=== PATIENT | female | born 2000 | race Hispanic/Latino ===

== ENCOUNTER 2022-06-10 14:22 | Emergency (ER) | payer OTHER ==
[2022-06-10 16:29] LABS: Urine Blood Negative (Negative); Urine Glucose Negative (Negative); Urine Protein Negative (Negative); Urine pH 6.5 (5.0-7.0)
[2022-06-10] MEDS ORDERED: KETOROLAC 30 MG/ML INJ ONE (17:04)
--- NOTE | 2022-06-10 17:11 | RAD REPORT ---
EXAM DESCRIPTION: CT - Stone Protocol - 06/10/2022 4:37 pm CLINICAL HISTORY: Left flank pain, lower back pain COMPARISON: None. TECHNIQUE: CT imaging of the abdomen and pelvis was performed without IV contrast. . Multiplanar ref ormats were generated and reviewed. All CT scans are performed using dose optimization technique as appropriate and may include automated exposure control or mA/KV adjustment according to patient size. FINDINGS: No suspicious findings in the lung bases. The liver, spleen and pancreas show no suspicious findings. Gallbladder and biliary tree are also wit hout suspicious finding. No hydronephrosis or suspicious renal mass within limits of noncontrast CT. No evidence of hydronephr osis or radiopaque calculi. . No significant adrenal finding. No dilated bowel loops or bowel wall thickening. No free air, free fluid or inflammatory stranding. N o hernia, mass or bulky lymphadenopathy. The urinary bladder is without significant finding. Uterus is retroverted with IUD in satisfactory position. Dominant right adnexal cyst or follicle, sanket suring 3 centimeter. No suspicious bony findings. IMPRESSION: No evidence of hydroureteronephrosis or radiopaque calculi. No other acute intra-abdomin al process.
[2022-06-10 17:22] LABS: Absolute Lymphocytes (CBC) 1.9 K/uL (0.7-4.9); Hematocrit 38.3 % (36.0-45.0); Lymphocytes % 16.4 % (15.3-44.8); MCV 87.9 fL (80-100); MPV 7.8 fL (7.6-11.3); RBC Red Blood Cell Count 4.36 M/uL (3.86-4.86)
[2022-06-10 17:37] LABS: Albumin 3.6 g/dL (3.4-5.0); Bilirubin Total 0.4 mg/dL (0.2-1.0); Potassium 3.8 mmol/L (3.5-5.1); Protein, Total 8.3 g/dL (6.4-8.2)
--- NOTE | 2022-06-10 18:56 | RAD REPORT ---
EXAM DESCRIPTION: CT - Chest For Pe Angio - 06/10/2022 6:29 pm CLINICAL HISTORY: Left-sided Chest pain COMPARISON: CT stone protocol same-day TECHNIQUE: Dynamically enhanced axial 3 mm thick images of the chest were obtained during administra tion of 74 mL Isovue 370 IV contrast. Coronal and oblique reconstruction images were generated and re viewed. Exam utilizes a protocol for optimal evaluation of pulmonary arterial tree. All CT scans are performed using dose optimization technique as appropriate and may include automated exposure control or mA/KV adjustment according to patient size. FINDINGS: Pulmonary arteries are patent. No evidence of emboli or other suspicious finding. Main pul monary artery is normal in caliber. No acute or significant aorta findings. Mild burden of scattered central predominant alveolar ground-glass opacities in the left lower lobe, with few similar opacities in the right middle and lower lobes. Subsegmental opacification in the med ial right middle lobe. No pleural thickening or pleural effusion. No pneumothorax. No abnormal mediastinal or hilar masses or lymphadenopathy seen. No chest wall mass or abnormal axill iary lymphadenopathy. IMPRESSION: No evidence of acute pulmonary embolus. Mild burden of air bilateral lower lobe and right middle lobe airspace opacities as above, suggestive of an infectious or inflammatory as pneumonia.
--- NOTE | 2022-06-10 19:26 | ER ---
Nurse's Notes [facility] Name: Ashley Estevez Age: 22 yrs Sex: Female : 2000 Arrival Date: 06/10/2022 Time: 14:29 Bed 17 Private MD: Diagnosis: Community-acquired pneumonia Presentation: 06/10 14:50 Chief complaint: Patient states: she is having lower left sided back pain, that hurts ap3 every time she moves. patient reports normal urine habits. Coronavirus screen: At this time, the client does not indicate any symptoms associated with coronavirus-19. Ebola Screen: No symptoms or risks identified at this time. Initial Sepsis Screen: Does the patient meet any 2 criteria? No. Patient's initial sepsis screen is negative. Does the patient have a suspected source of infection? No. Patient's initial sepsis screen is negative. Risk Assessment: Do you want to hurt yourself or someone else? Patient reports no desire to harm self or others. Onset of symptoms was June 03, 2022. 14:50 Method Of Arrival: Ambulatory ap3 14:50 Acuity: IAN 3 ap3 Triage Assessment: 14:53 General: Appears in no apparent distress. Behavior is calm, cooperative, appropriate ap3 for age. Pain: Complains of pain in left low back and left mid back Pain currently is 8 out of 10 on a pain scale. Pain began gradually. Neuro: Level of Consciousness is awake, alert, obeys commands, Oriented to person, place, time, situation. Cardiovascular: Patient's skin is warm and dry. Respiratory: Airway is patent Respiratory effort is even, unlabored, Respiratory pattern is regular, symmetrical. :. Musculoskeletal: Range of motion: intact in all extremities. 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 Flu vaccine is up to date. - Social history:: Smoking status: Reported history of juuling and/or vaping. Patient uses street drugs, marijuana. Screenin:54 [facility] ED Fall Risk Assessment (Adult) History of falling in the last 3 months, ap3 including since admission No falls in past 3 months (0 pts). Abuse screen: Denies threats or abuse. Denies injuries from another. Nutritional screening: No deficits noted. Tuberculosis screening: No symptoms or risk factors identified. Assessment: 16:23 General: Appears in no apparent distress. uncomfortable, Behavior is calm, cooperative, kr3 appropriate for age. Neuro: Level of Consciousness is awake, alert, obeys commands, Oriented to person, place, time, situation. Cardiovascular: Patient's skin is warm and dry. Respiratory: Airway is patent Respiratory effort is even, unlabored. 16:30 GI: Abdomen is flat, non-distended. : No signs and/or symptoms were reported kr3 regarding the genitourinary system. EENT: No signs and/or symptoms were reported regarding the EENT system. Derm: No signs and/or symptoms reported regarding the dermatologic system. Musculoskeletal: No signs and/or symptoms reported regarding the musculoskeletal system. 17:30 Reassessment: Patient and/or family updated on plan of care and expected duration. Pain kr3 level reassessed. Patient is alert, oriented x 3, equal unlabored respirations, skin warm/dry/pink. 19:44 Reassessment: Patient appears in no apparent distress at this time. Patient and/or aa9 family updated on plan of care and expected duration. Pain level reassessed. Patient is alert/active/playful, equal unlabored respirations, skin warm/dry/pink. Patient denies pain at this time. Patient states symptoms have improved. Vital Signs: 14:50 BP 105 / 87; Pulse 90; Resp 18; Temp 98.7; Pulse Ox 100% ; Weight 39.92 kg; Height 5 ap3 ft. (152.40 cm); Pain 8/10; 14:50 Body Mass Index 17.19 (39.92 kg, 152.40 cm) ap3 ED Course: 14:29 Patient arrived in ED. am2 14:36 [facility] Cool [facility] 14:36 Marcio Zee MD is Attending Physician. [facility] 14:52 Triage completed. ap3 14:55 Arm band placed on left wrist. ap3 14:56 Attending Physician role handed off by Marcio Zee MD brent 14:56 Omid Huizar MD is Attending Physician. brent 16:23 Nereyda Cha, RN is Primary Nurse. kr3 16:58 Urine --Ancillary (enter results) Sent. kr3 17:11 Inserted saline lock: 22 gauge in right antecubital area, using aseptic technique. kr3 Blood collected. 19:44 Patient has correct armband on for positive identification. Bed in low position. aa9 19:44 No provider procedures requiring assistance completed. IV discontinued, intact, aa9 bleeding controlled, No redness/swelling at site. Pressure dressing applied. Administered Medications: 17:11 Drug: Ketorolac 15 mg Route: IVP; Site: right forearm; kr3 19:43 Follow up: Response: No adverse reaction aa9 19:43 Drug: Rocephin (cefTRIAXone) 1 grams Route: IV; Rate: calculated rate; Site: right aa9 forearm; 19:43 Follow up: Response: No adverse reaction; IV Status: Completed infusion; IV Intake: 11utih2 19:43 Drug: AZITHromycin 500 mg Route: PO; aa9 19:43 Follow up: Response: No adverse reaction aa9 Medication: 14:55 VIS not applicable for this client. ap3 Intake: 19:43 IV: 10ml; Total: 10ml. aa9 Outcome: 19:25 Discharge ordered by . [facility] 19:44 Discharged to home ambulatory. aa9 19:44 Condition: stable 19:44 Condition: stable 19:44 Discharge instructions given to patient, Instructed on discharge instructions, follow up and referral plans. medication usage, Demonstrated understanding of instructions, follow-up care, medications, Prescriptions given X 2. 19:44 Patient left the ED. aa9 Signatures: Omid Huizar MD MD cha Mickail, Joel, PA PA jmm Moreno, Amanda am2 Chary Martinez RN RN ap3 Maty Yi RN RN aa9 Nereyda Cha, KYLE RN kr3 Corrections: (The following items were deleted from the chart) 14:53 14:52 PMHx: None; ap3 ap3
--- NOTE | 2022-06-10 19:26 | EDPHYS ---
Physician Documentation [facility] Name: Ashley Estevez Age: 22 yrs Sex: Female : 2000 Arrival Date: 06/10/2022 Time: 14:29 Bed 17 Private MD: JIM Physician Omid Huizar HPI: 06/10 14:56 This 22 yrs old Female presents to ER via Ambulatory with complaints of Cough, jmm Back Pain - left side. 14:56 The patient or guardian reports cough. Onset: The symptoms/episode began/occurred jmm gradually. Modifying factors: The symptoms are alleviated by nothing, the symptoms are aggravated by nothing. Associated signs and symptoms: Pertinent positives: Cough. The patient has not experienced similar symptoms in the past. 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 Flu vaccine is up to date. - Social history:: Smoking status: Reported history of juuling and/or vaping. Patient uses street drugs, marijuana. ROS: 14:56 Constitutional: Positive for body aches. jmm 14:56 Respiratory: Positive for cough. 14:56 Back: Positive for flank pain, on the left. 14:56 All other systems are negative. Exam: 14:56 Constitutional: This is a well developed, well nourished patient who is awake, alert, jmm and in no acute distress. Head/Face: atraumatic. Eyes: EOMI, no conjunctival erythema appreciated ENT: Moist Mucus Membranes Neck: Trachea midline, Supple Chest/axilla: Normal chest wall appearance and motion. Cardiovascular: Regular rate and rhythm. No edema appreciated Respiratory: Normal respirations, no respiratory distress appreciated Abdomen/GI: Non distended 14:56 Skin: General appearance color normal MS/ Extremity: Moves all extremities, no obvious deformities appreciated, no edema noted to the lower extremities Neuro: Awake and alert Psych: Behavior is normal, Mood is normal, Patient is cooperative and pleasant 14:56 Back: CVA tenderness, that is mild, that is moderate. Vital Signs: 14:50 BP 105 / 87; Pulse 90; Resp 18; Temp 98.7; Pulse Ox 100% ; Weight 39.92 kg; Height 5 ap3 ft. (152.40 cm); Pain 8/10; 14:50 Body Mass Index 17.19 (39.92 kg, 152.40 cm) ap3 MDM: 14:56 Patient medically screened. brent 19:24 Data reviewed: vital signs, nurses notes. Independent interpretation of the following [facility] test(s) in the Emergency Department. Discussion of test interpretation with radiology: I had a discussion with radiology regarding a test interpretation. Had some concerns for pneumonia on the CT stone protocol.. Counseling: I had a detailed discussion with the patient and/or guardian regarding: the historical points, exam findings, and any diagnostic results supporting the discharge/admit diagnosis, lab results, radiology results, the need for outpatient follow up, to return to the emergency department if symptoms worsen or persist or if there are any questions or concerns that arise at home. 06/10 14:59 Order name: CBC with Diff [facility] 06/10 14:59 Order name: CMP [facility] 06/10 14:59 Order name: Lipase [facility] 06/10 16:29 Order name: Urine Dipstick-Ancillary; Complete Time: 16:30 [facility] 06/10 16:43 Order name: Urine --Ancillary (enter results) [facility] 06/10 16:58 Order name: Urine --Ancillary; Complete Time: 17:01 [facility] 06/10 14:59 Order name: CT Stone Protocol [facility] 06/10 17:11 Order name: CT; Complete Time: 17:26 [facility] 06/10 17:17 Order name: CT Chest For PE Angio [facility] 06/10 17:24 Order name: CBC with Automated Diff; Complete Time: 17:26 [facility] 06/10 17:38 Order name: Comprehensive Metabolic Panel; Complete Time: 17:47 [facility] 06/10 17:38 Order name: Lipase; Complete Time: 17:47 [facility] 06/10 18:57 Order name: CT; Complete Time: 19:00 [facility] 06/10 14:59 Order name: IV Saline Lock; Complete Time: 17:11 [facility] 06/10 14:59 Order name: Labs collected and sent; Complete Time: 17:11 [facility] 06/10 14:59 Order name: Urine Dipstick-Ancillary (obtain specimen); Complete Time: 16:36 [facility] 06/10 14:59 Order name: Urine Test (obtain specimen); Complete Time: 16:36 [facility] Administered Medications: 17:11 Drug: Ketorolac 15 mg Route: IVP; Site: right forearm; kr3 19:43 Follow up: Response: No adverse reaction aa9 19:43 Drug: Rocephin (cefTRIAXone) 1 grams Route: IV; Rate: calculated rate; Site: right aa9 forearm; 19:43 Follow up: Response: No adverse reaction; IV Status: Completed infusion; IV Intake: [id number] 19:43 Drug: AZITHromycin 500 mg Route: PO; aa9 19:43 Follow up: Response: No adverse reaction aa9 Disposition Summary: 06/10/22 19:25 Discharge Ordered Location: Home [facility] Condition: Stable [facility] Diagnosis - Community-acquired pneumonia [facility] Followup: [facility] - With: Private Physician - When: 2 - 3 days - Reason: Recheck today's complaints, Continuance of care, Re-evaluation by your physician Discharge Instructions: - Discharge Summary Sheet [facility] - Community-Acquired Pneumonia, Adult [facility] Forms: - Medication Reconciliation Form [facility] - Thank You Letter [facility] - Antibiotic Education [facility] - Prescription Opioid Use [facility] Prescriptions: - cefdinir 300 mg Oral capsule - take 1 capsule by ORAL route every 12 hours for 10 days; 20 capsule; Refills: jm 0, Product Selection Permitted - Zithromax Z-Dwain 250 mg Oral Tablet - take 1 tablet by ORAL route as directed for 5 days Day 1 - take two (2) tablets [facility] one time. Day 2, 3, 4 , 5 take one (1) tablet once daily.; 6 tablet; Refills: 0, Product Selection Permitted Addendum: 06/11/2022 19:53 Co-signature as Attending Physician, Marcio Zee MD I reviewed the patient's care r n provided by the Advanced Practice Provider and agree with the diagnosis and treatment plan. Signatures: Dispatcher [employer] Omid Chaney MD MD cha Mickail, Joel, PA PA [facility] Marcio Zee MD MD rn Prokisch, Amanda RN RN ap3 Maty Yi RN RN aa9 Nereyda Cha RN RN kr3 Corrections: (The following items were deleted from the chart) 06/10 14:53 14:52 PMHx: None; ap3 ap3
[2022-06-10] MEDS ORDERED: CEFTRIAXONE 1000 MG/VIAL ONE (19:37)
[2022-06-10] MEDS ORDERED: AZITHROMYCIN 250 MG TAB ONE (19:37)
[2022-06-10 20:22] VITALS: BP 105/87; TEMP 98.7; O2SAT 100
== END 2022-06-10 19:44 | disposition home or self-care (01) ==
LOC: ER 14:22
DX: J18.9 Pneumonia, unspecified organism (principal)
CPT/HCPCS: 85025; 36415; 81025; 81003; 83690; 80053; 76377; 71275; 74176; Q9967

== ENCOUNTER 2022-06-12 11:33 | Emergency (ER) | payer OTHER ==
--- OUTSIDE RECORDS SUMMARY | 2022-06-12 11:39 | XMS REPORT | Continuity of Care Document ---
:2000 Author Organization [facility] t Address [address] [place] [address] Care Team Providers Name Role Phone JOHNY MIN Attending Clinician Unavailable Elmer Zapien Attending Clinician Unavailable Nilton Gastelum Attending Clinician Unavailable Taisha Edouard Attending Clinician Unavailable Julissa Earl Attending Clinician Unavailable Elmer Zapien Admitting Clinician Unavailable Payers Payer Name Policy Type Policy Number Effective Date Expiration Date S ource Problems This patient has no known problems. Allergies, Adverse Reactions, Alerts Allergy Allergy Status Severity Reaction(s) Onset Inactive Treating Comm ents Source Name Type Date Date Clinician No Known DA Active U [facility] Clear s 00:00: [place] 00 [facility] No Known DA Active U [facility] 11-11 Clear s 00:00: [place] 00 [facility] No Known DA Active U 2021-0 [facility] 7-07 Clear s 00:00: [place] [facility] No Known DA Active U 2020-0 [facility] 7-07 Clear s 00:00: [place] [facility] No Known DA Active U 2019- [facility] 2-07 Clear s 00:00: [place] [facility] No Known DA Active U 2019- [facility] All[facility]ie 2-07 Clear s 00:00: [place] [facility] No Known DA Active U 2015- [facility] 2-04 Clear s 00:00: [place] [facility] No Known DA Active U 2015-0 [facility] All[facility]ie 2-04 Clear s 00:00: [place] [facility] Medications This patient has no known medications. Procedures Procedure Date / Time Performed Performing Clinician [facility] bo [id number] 2020-11-12 00:00:00 MAXBA [facility] [id number] 2020-11-12 00:00:00 MAXBA [facility] [id number] 2020-11-12 00:00:00 MAXBA [facility] [id number] 2020-11-12 00:00:00 MAXBA [facility] [id number] 2020-11-11 00:00:00 MAXBA [facility] [id number] 2020-11-11 00:00:00 MAXBA [facility] [id number] 2020-11-11 00:00:00 MAXBA [facility] [id number] 2020-11-11 00:00:00 MAXBA [facility] Encounters Start End Encounter Admission Attending Care Care Encounter Source Date/Time Date/Time Type Type Clinicians Facility Department ID 2020-04-23 Inpatient [facility] NAKUL [id number] [facility] 17:49:00 [facility] 2020-03-26 Inpatient [facility] NAKUL [id number] [facility] 10:03:00 [facility] 2021-10-25 2021-10-25 Emergency E INA MINTW MHTW [id number] MHTW 15:39:00 20:30:00 JOHNY 2020-11-11 2020-11-14 Inpatient EM Maximos, HC[facility]L OBPP [id number] [facility] 17:33:00 15:33:00 Elmer 88 [facility] 2020-11-11 2020-11-14 Inpatient EM Maximos, [facility] OBPP [id number] [facility] 17:33:00 15:33:00 Elmer [id number] [facility] 2020-11-10 2020-11-10 Emergency EM Nirav, [facility] NAKUL [id number] [facility] 11:53:00 13:57:00 Nilton [id number] [facility] 2020-11-06 2020-11-06 Emergency EM Javan, HC[facility]L DANYELL [id number] [facility] 18:17:00 19:55:00 Taisha [id number] [facility] 2020-10-24 2020-10-24 Emergency EM Rajat, [facility] DANYELL [id number] [facility] 21:18:00 23:21:00 Julissa [id number] [facility] 2020-09-27 2020-09-28 Inpatient EM Maximos, [facility] OBANTE [id number] [facility] 14:49:00 17:28:00 Elmer [id number] [facility] Results Test Description Test Time Test Comments Results Result Comments Source SURGICAL PATH SPECIMENS 2020-11-14 14:27:00 Test Item Value Reference Range Interpretation Comme nts SURGICAL RUN DATE: HARVEY 11/14/20 Moustapha LOPEZ GE 1 RUN TIME: 1426 Specimen Inquiry RUN USER: INTERFACE SPECIMENS PATIENT: BENDERtest code SHALOM SCHROEDER # : [id number] LOC: LAW U #: [id number] AGE/SX: 20/F [place] [facility] [place]: = S) 11/11/20REG DR: Yaron Zapien MD : 98 BED: 1 DIS: STATUS: ADM IN TLOC: SPEC #: [id number] RECD: 11/13/20-0 941 STATUS: SMILEY RE #: [id number] DOROTA: 11/12/20- SUBM DR: Elmer Zapien MD ENTERED: 11/13/20 SP TYPE: SURG SPEC OTHR DR: Self Referred Julissa Earl DOORDERED: GM LEVEL 5 CODES: [id number] - PLACENTA, NOS COPIES TO: Self Referred Julissa Earl DO [address] [facility], [address] [place] [address] Elmer Zapien MD [address] [facility], [address] [place] [address] PROCEDURES: GM LEVEL 5 (11/13/20) TISSUES: PLACENTA, NOS FINAL DIAGNOSIS Placenta: Third trimester placenta wit h acute chorionitis, deciduitis; 385 g (expected mean 519 g); trivascular umbilical cord with mild acu te vasculitis. GROSS AND MICROSCOPIC GROSS EXAMINATION: Received is a placenta measuring 17 x 13.9 x 1.8 cm with attached umbilical cord measuring 46 cm in length, 1 cm in diameter, arising 6 cm from the margin. Sections are submitted as A-D. The maternal surface appears intact. The placental disc w eighs 385 g. Microscopic examination: The trivascular umbilical cord contains mild acute inflamma tory cells within vessel mosqueda. The membranes have acute inflammatory cells within the chorion. The vill i are predominantly small, with decreased cellularity and prominent vasculature. The decidua brian ws acute and chronic inflammation. CONTINUED ON NEXT PAGE RUN DATE: 11/14/20 [facility] P AGE 1 RUN TIME: 142 Specimen Inquiry RUN USER: INTERFACE SPEC #: [id number] PATIENT: SHALOM PARKINSON Bo #[id number] (Continued) Signed SIGNATURE ON FILE Florence Eli MD 11/14/20 1427 END OF REPORT CBC W/AUTO [id number] 07:37:00 Test Item Value Reference Range Interpretation Comments WHITE BLOOD CELL (test code = 13.5 x10 3/uL 4.5-11.0 H WBC) RED BLOOD CELL (test code = 3.08 x10 6/uL 3.54-5.02 L RBC) HEMOGLOBIN (test code = HGB) 9.5 g/dL 11.0-15.0 L HEMATOCRIT (test code = HCT) 29.3 % 33.0-45.0 L MEAN CELL VOLUME (test code = 95.1 fL 81.0-99.0 MCV) MEAN CELL HGB (test code = MCH) 30.8 pg 27.0-33.0 N MEAN CELL HGB CONCETRATION 32.4 g/dL 33.0-37.0 L (test code = MCHC) RED CELL DISTRIBUTION WIDTH CV 13.5 % 11.5-14.5 N (test code = RDW) RED CELL DISTRIBUTION WIDTH SD 46.9 fL 37.0-54.0 N (test code = RDW-SD) PLATELET COUNT (test code = 192 x10 3/uL 150-400 N PLT) MEAN PLATELET VOLUME (test code 11.0 fL 7.0-9.0 H = MPV) NEUTROPHIL % (test code = NT%) 69.4 % 56.0-77.0 N IMMATURE GRANULOCYTE % (test 0.7 % 0.0-2.0 N code = IG%) LYMPHOCYTE % (test code = LY%) 21.5 % 14.0-32.0 N MONOCYTE % (test code = MO%) 7.7 % 4.8-9.0 N EOSINOPHIL % (test code = EO%) 0.4 % 0.3-3.7 N BASOPHIL % (test code = BA%) 0.3 % 0.0-2.0 N NUCLEATED RBC % (test code = 0.0 % 0-0 N NRBC%) NEUTROPHIL # (test code = NT#) 9.37 x10 3/uL 2.0-7.6 H IMMATURE GRANULOCYTE # (test 0.10 x10 3/uL 0.00-0.03 H code = IG#) LYMPHOCYTE # (test code = LY#) 2.90 x10 3/uL 1.0-3.8 N MONOCYTE # (test code = MO#) 1.04 x10 3/uL 0.1-0.8 H EOSINOPHIL # (test code = EO#) 0.06 x10 3/uL 0.0-0.2 N BASOPHIL # (test code = BA#) 0.04 x10 3/uL 0.0-0.2 N NUCLEATED RBC # (test code = 0.00 x10 3/uL 0.0-0.1 N NRBC#) MANUAL DIFF REQUIRED (test code NO = MDIFF) RAPID PLASMA [id number] 10:53:00 Test Item Value Reference Range Interpretation Comments RAPID PLASMA REAGIN (test code = NONREACTIVE NONREACTIVE RPR) AG HEPATITIS B [id number] 10:53:00 Test Item Value Reference Range Interpretation Comments AG HEPATITIS B SURFACE NON REACTIVE INDEX NonReactive (test code = HBSAG) AB HIV 1 10:53:00 Test Item Value Reference Range Interpretation Comments AB HIV 1 2 (test code = NONREACTIVE INDEX NONREACTIVE [id number]) RAPID PLASMA [id number] 19:19:00 Test Item Value Reference Range Interpretation Comments RAPID PLASMA REAGIN (test code = RPR) NONREACTIVE AG HEPATITIS B [id number] 19:19:00 Test Item Value Reference Range Interpretation Comments AG HEPATITIS B SURFACE NON REACTIVE INDEX NonReactive (test code = HBSAG) AB HIV 1 19:19:00 Test Item Value Reference Range Interpretation Comments AB HIV 1 2 (test code = NONREACTIVE INDEX NONREACTIVE [id number]) COVID 19 Asymptomatic IH [id number] 18:38:00 Test Item Value Reference Range Interpretation Comments COVID 19 Asymptomatic Negative Negative A nega tive result is IH AG (test code = presumpti ve and should COVNONPUIAG) be confirmedwit h an FDA authorized mole cular assay, if lisbeth bassett forpatient gemma sharif.A positive result does not rule out co-inf ections withother patho gens.This test detects sharad th viable (live) and non-viable,SARS -CoV, and SARS-CoV-2. Min t performance dep ends on theamount of vi lucía (antigen) in th e sample.This min t has not been FDA cleare d or approved; the t est hasbeen authori zed by FDA under an Em ergency Use Authorizati on(EUA) for use by labo ratories certified under the CLIA thatmeet the requirements to perform moderate, high or waivedcomplexit y tests. COMMENTS: If not done this admissionCOMPREHENSIVE METABOLIC [id number] 16:38:00 Test Item Value Reference Range Interpretation Comments SODIUM (test code = NA) 136 mEq/L 134-147 N POTASSIUM (test code = 4.0 mEq/L 3.4-5.0 N K) CHLORIDE (test code = 107 mEq/L 100-108 N CL) CARBON DIOXIDE (test 23 mEq/l 21-33 N code = CO2) ANION GAP (test code = 10 0-20 N GAP) GLUCOSE (test code = 83 mg/dL 70-110 N GLU) BLOOD UREA NITROGEN 6 mg/dL 7-18 L (test code = BUN) GLOMERULAR FILTRATION 125.0 110-120 H Units of measure = RATE (test code = GFR) ml/mi n/1.73 m2 CREATININE (test code = 0.6 mg/dL 0.6-1.3 N CREAT) TOTAL PROTEIN (test code g/dL 6.4-8.2 = PROT) ALBUMIN (test code = g/dL 3.4-5.0 ALB) CALCIUM (test code = CA) 9.0 mg/dL 8.0-10.5 N BILIRUBIN TOTAL (test mg/dL 0.0-1.0 code = BILT) SGOT/AST (test code = IUnit/L 15-37 AST) SGPT/ALT (test code = IUnit/L 30-65 ALT) ALKALINE PHOSPHATASE IUnit/L 20-125 TOTAL (test code = ALKP) COMPREHENSIVE METABOLIC [id number] 16:38:00 Test Item Value Reference Range Interpretation Comments SODIUM (test code = NA) 136 mEq/L 134-147 N POTASSIUM (test code = 4.0 mEq/L 3.4-5.0 N K) CHLORIDE (test code = 107 mEq/L 100-108 N CL) CARBON DIOXIDE (test 23 mEq/l 21-33 N code = CO2) ANION GAP (test code = 10 0-20 N GAP) GLUCOSE (test code = 83 mg/dL 70-110 N GLU) BLOOD UREA NITROGEN 6 mg/dL 7-18 L (test code = BUN) GLOMERULAR FILTRATION 125.0 110-120 H Units of measure = RATE (test code = GFR) ml/mi n/1.73 m2 CREATININE (test code = 0.6 mg/dL 0.6-1.3 N CREAT) TOTAL PROTEIN (test 6.8 g/dL 6.4-8.2 N code = PROT) ALBUMIN (test code = 3.00 g/dL 3.4-5.0 L ALB) CALCIUM (test code = 9.0 mg/dL 8.0-10.5 N CA) BILIRUBIN TOTAL (test 0.40 mg/dL 0.0-1.0 N code = BILT) SGOT/AST (test code = 23 IUnit/L 15-37 N AST) SGPT/ALT (test code = 9 IUnit/L 30-65 L ALT) ALKALINE PHOSPHATASE 221 IUnit/L 20-125 H TOTAL (test code = ALKP) CBC W/AUTO [id number] 14:56:00 Test Item Value Reference Range Interpretation Comments WHITE BLOOD CELL (test code = 11.2 x10 3/uL 4.5-11.0 H WBC) RED BLOOD CELL (test code = 3.52 x10 6/uL 3.54-5.02 L RBC) HEMOGLOBIN (test code = HGB) 10.8 g/dL 11.0-15.0 L HEMATOCRIT (test code = HCT) 31.9 % 33.0-45.0 L MEAN CELL VOLUME (test code = 90.6 fL 81.0-99.0 N MCV) MEAN CELL HGB (test code = MCH) 30.7 pg 27.0-33.0 N MEAN CELL HGB CONCETRATION 33.9 g/dL 33.0-37.0 N (test code = MCHC) RED CELL DISTRIBUTION WIDTH CV 13.4 % 11.5-14.5 N (test code = RDW) RED CELL DISTRIBUTION WIDTH SD 43.7 fL 37.0-54.0 N (test code = RDW-SD) PLATELET COUNT (test code = 240 x10 3/uL 150-400 N PLT) MEAN PLATELET VOLUME (test code 10.3 fL 7.0-9.0 H = MPV) NEUTROPHIL % (test code = NT%) 77.1 % 56.0-77.0 H IMMATURE GRANULOCYTE % (test 1.3 % 0.0-2.0 N code = IG%) LYMPHOCYTE % (test code = LY%) 12.6 % 14.0-32.0 L MONOCYTE % (test code = MO%) 8.5 % 4.8-9.0 N EOSINOPHIL % (test code = EO%) 0.3 % 0.3-3.7 N BASOPHIL % (test code = BA%) 0.2 % 0.0-2.0 N NUCLEATED RBC % (test code = 0.0 % 0-0 N NRBC%) NEUTROPHIL # (test code = NT#) 8.60 x10 3/uL 2.0-7.6 H IMMATURE GRANULOCYTE # (test 0.15 x10 3/uL 0.00-0.03 H code = IG#) LYMPHOCYTE # (test code = LY#) 1.40 x10 3/uL 1.0-3.8 N MONOCYTE # (test code = MO#) 0.95 x10 3/uL 0.1-0.8 H EOSINOPHIL # (test code = EO#) 0.03 x10 3/uL 0.0-0.2 N BASOPHIL # (test code = BA#) 0.02 x10 3/uL 0.0-0.2 N NUCLEATED RBC # (test code = 0.00 x10 3/uL 0.0-0.1 N NRBC#) MANUAL DIFF REQUIRED (test code NO = MDIFF) CBC W/AUTO [id number] 14:55:00 Test Item Value Reference Range Interpretation Comments WHITE BLOOD CELL (test code = x10 3/uL 4.5-11.0 WBC) RED BLOOD CELL (test code = RBC) x10 6/uL 3.54-5.02 HEMOGLOBIN (test code = HGB) g/dL 11.0-15.0 HEMATOCRIT (test code = HCT) % 33.0-45.0 MEAN CELL VOLUME (test code = fL 81.0-99.0 MCV) MEAN CELL HGB (test code = MCH) pg 27.0-33.0 MEAN CELL HGB CONCETRATION (test g/dL 33.0-37.0 code = MCHC) RED CELL DISTRIBUTION WIDTH CV % 11.5-14.5 (test code = RDW) PLATELET COUNT (test code = PLT) 240 x10 3/uL 150-400 N NEUTROPHIL % (test code = NT%) % 56.0-77.0 LYMPHOCYTE % (test code = LY%) % 14.0-32.0 NEUTROPHIL # (test code = NT#) x10 3/uL 2.0-7.6 LYMPHOCYTE # (test code = LY#) x10 3/uL 1.0-3.8 MANUAL DIFF REQUIRED (test code = MDIFF) - BIOPHYS [id number] 00:00:00 [facility] 2000 Sex: F Name: ARTIS PARKINSONRA [facility] : 2000 Age/S: 20 / F [address] [place] [address] Blvd Unit #: [id number] Loc: [place]GEY [address] Phys: Julissa Earl DO Acct: [id number] Dis Date: Status: REG ER PHONE #: [phone] Exam Date: 11/11/2020 1639 FAX #: [phone] Reason: decreased mvmt at 38 week EXAMS: CPT CODE: [id number] US BIOPHYS PROF [id number] PROCEDURE INFORMATION: Exam: US Biophysical Profile With Non-Stress Test Exam date and time: 11/11/2020 4:04 PM Age: 20 years old Clinical indication: status abnormalities: ; movements, decreased; Single gestation; Third trimester (28 wks 0 days until delivery); ; Additional info: Decreased mvmt at 38 week 4 days TECHNIQUE: Imaging protocol: biophysical profile with non-stress test. COMPARISON: US DUP AB/PEL/SC LTD 03/26/2020 10:44 AM FINDINGS: Gestation: A single live intrauterinepregnancy is identified currently in cephalic position with heart tones of 120 bpm. Fundal grade 3 placenta is seen. Systolic/diastolic ratio measures 2.2. Amniotic fluid index measures 18.4 cm. BIOPHYSICAL PROFILE: Breathin/2. Breathing not visualized Gross body movements: 2/2 tone: 2/2 Qualitative amniotic fluid: 2/2 Biophysical Profile Score: 6/8 IMPRESSION: Biophysical profile score of 6/8. No points awarded for breathing movement. at 1714 Reported and signed by: Anival Boles M.D. CC: Julissa Earl DO Technologist: Jose Alfredo Anderson RDMS() Trnscb Date/Time: 11/11/2020 (1713) [email or web address] Orig Print D/T: S: 11/11/2020 (1713) Probe: PAGE 1 Signed ReportURINALYSIS [id number] 23:00:00 Test Item Value Reference Range Interpretation Comments UA COLOR (test code = COLU) YELLOW YEL/STRAW UA APPEARANCE (test code = SL CLOUDY CLEAR APPU) UA GLUCOSE DIPSTICK (test code NEGATIVE NEGATIVE = DGLUU) UA BILIRUBIN DIPSTICK (test NEGATIVE NEGATIVE code = BILU) UA KETONE DIPSTICK (test code NEGATIVE NEGATIVE = KETU) UA SPECIFIC GRAVITY (test code 1.021 1.005-1.030 N = SGU) UA BLOOD DIPSTICK (test code = NEGATIVE NEGATIVE HANK) UA PH DIPSTICK (test code = 6.0 5.0-7.0 N EVELYN) UA PROTEIN DIPSTICK (test code NEGATIVE NEGATIVE = PROU) UA UROBILINIOGEN DIPSTICK 0.2 mg/dL 0.2-1.0 (test code = URO) UA NITRITE DIPSTICK (test code NEGATIVE NEGATIVE = BIJU) UA LEUKOCYTE ESTERASE DIPSTICK NEGATIVE NEGATIVE (test code = LEUU) UA RBC (test code = RBCU) 0-3 RBC/HPF 0-3 UA WBC NO REFLEX (test code = 0-3 WBC/HPF 0-3 WBCUCL) UA BACTERIA (test code = BACU) NONE SEEN /HPF NONE SEEN UA SQUAMOUS CELLS (test code = 0-5 /HPF NONE SEEN SQU) UA MUCUS (test code = MUCU) TRACE /LPF NONE SEEN AMNISURE (ROM) [id number] 22:56:00 Test Item Value Reference Range Interpretation Comments AMNISURE (ROM) TEST (test code = NEGATIVE NEGATIVE AMNI) COVID 19 Asymptomatic IH [id number] 22:09:00 Test Item Value Reference Range Interpretation Comments COVID 19 Asymptomatic Negative Negative A nega tive result is IH AG (test code = presumpti ve and should COVNONPUIAG) be confirmedwit h an FDA authorized mole cular assay, if neces serjio forpatient gemma gement.A positive result does not rule out co-inf ections withother patho gens.This test detects sharad th viable (live) and non-viable,SARS -CoV, and SARS-CoV-2. Min t performance dep ends on theamount of vi lucía (antigen) in th e sample.This min t has not been FDA cleare d or approved; the t est hasbeen authori zed by FDA under an Em ergency Use Authorizati on(EUA) for use by labo ratories certified under the CLIA thatmeet the requirements to perform moderate, high or waivedcomplexit y tests. COMMENTS: If not done this admissionFETAL [id number] 02:26:00 Test Item Value Reference Range Interpretation Comments FIBRONECTIN (test code = FFN) NEGATIVE NEGATIVE URINALYSIS [id number] 02:07:00 Test Item Value Reference Range Interpretation Comments UA COLOR (test code = COLU) YELLOW YEL/STRAW UA APPEARANCE (test code = APPU) CLEAR CLEAR UA GLUCOSE DIPSTICK (test code = NEGATIVE NEGATIVE DGLUU) UA BILIRUBIN DIPSTICK (test code NEGATIVE NEGATIVE = BILU) UA KETONE DIPSTICK (test code = NEGATIVE NEGATIVE KETU) UA SPECIFIC GRAVITY (test code = 1.015 1.005-1.030 N SGU) UA BLOOD DIPSTICK (test code = NEGATIVE NEGATIVE HANK) UA PH DIPSTICK (test code = EVELYN) 7.0 5.0-7.0 N UA PROTEIN DIPSTICK (test code = NEGATIVE NEGATIVE PROU) UA UROBILINIOGEN DIPSTICK (test 0.2 mg/dL 0.2-1.0 code = URO) UA NITRITE DIPSTICK (test code = NEGATIVE NEGATIVE BIJU) UA LEUKOCYTE ESTERASE DIPSTICK TRACE NEGATIVE A (test code = LEUU) UA RBC (test code = RBCU) 0-3 RBC/HPF 0-3 UA WBC NO REFLEX (test code = 0-3 WBC/HPF 0-3 WBCUCL) UA BACTERIA (test code = BACU) 1+ /HPF NONE SEEN A UA SQUAMOUS CELLS (test code = 0-5 /HPF NONE SEEN SQU) UA MUCUS (test code = MUCU) TRACE /LPF NONE SEEN BASIC METABOLIC [id number] 13:29:00 Test Item Value Reference Range Interpretation Comments SODIUM (test code = NA) 133 mEq/L 134-147 L POTASSIUM (test code = 3.7 mEq/L 3.4-5.0 N K) CHLORIDE (test code = 102 mEq/L 100-108 N CL) CARBON DIOXIDE (test 20 mEq/l 21-33 L code = CO2) ANION GAP (test code = 14 0-20 N GAP) GLUCOSE (test code = 101 mg/dL 70-110 N GLU) BLOOD UREA NITROGEN 11 mg/dL 7-18 N (test code = BUN) GLOMERULAR FILTRATION 90.5 110-120 L Units of measure = RATE (test code = GFR) ml/mi n/1.73 m2 CREATININE (test code = 0.8 mg/dL 0.6-1.3 N CREAT) CALCIUM (test code = 10.6 mg/dL 8.0-10.5 H CA) Is patient ? YHOW MANY WEEKS? 6 WEEKSHCG [id number] 13:29:00 Test Item Value Reference Range Interpretation Comments HCG SERUM (test 31228.8 0 - 6 NOT P REGNANT > 6 code = HCG) SUGGESTIVE OF E ELIEZER RISES TWO FOLD EVERY 2 DAYS; SUGGEST RECONFIRMING AF TER 2 DAYS. 150,000-200,[address] TRIMESTER 10,00 0 - 50,000 2ND & 3RD TRIME STERResults in jonna-Research Technologist ational Units/mL Is patient ? YHOW MANY WEEKS? 6 WEEKS- DUP AB/PEL/SC/[id number] 11:46:00[facility] 2000 Sex: F Name: SHALOM PARKINSON [facility] : 2000 Age/S: 19 / F [address] [place] [address] Blvd Unit #: [id number] Loc: [place] [address] Phys: Junito Pantoja MD Acct: [id number] Dis Date: Status: REG ER PHONE #: [phone] Exam Date: 03/26/2020 1137 FAX #: [phone] Reason: see USPREG 1st TRIMTR EXAMS: CPT CODE: [id number] DUP AB/PEL/SC/LTD [id number] PROCEDURE: PELVIC ULTRASOUND INDICATION: 1st trimester with nausea and vomiting COMPARISON: None. TECHNIQUE: Grayscale, color and Doppler transabdominal and transvaginal imaging of the pelvis was performed with standard technique. Transvaginal ultrasound is obtained for further evaluation of the endometrium and adnexal regions. FINDINGS: UTERUS: Uterus 12 cm in length. It contains a small intrauterine gestational sac with ayolk sac and a pole. Amniotic fluid is adequate. Curvilinear fluid collection adjacent to the gestational sac suspicious for subchronic hemorrhage measuring 14 x 3 x 5 mm. A heart rate of 103 bpm recorded. The gestational age 6 weeks based on gestational sac measurement. RIGHT OVARY: 39 x 21 x 21 mm. Small follicles. Normal blood flow on Doppler. 3.1 cm greatest diameter simple cyst likely corpus luteum. LEFT OVARY: 28 x 18 x 14 mm. Normal blood flow on Doppler. BLADDER: Unremarkable. Comments: No adnexal masses. No free intraperitoneal fluid. IMPRESSION: 1. 6 week live intrauterine with area of subchronic hemorrhage adjacent to the gestational sac. 2. 3.1 cm corpus luteum cyst right ovary. SL: [id number] at 1146 Reported and signed by: Rigoberto Pitts M.D. PAGE 1 Signed Report (CONTINUED) Name: ED PARKINSONSANDRA [facility] : 2000 Age/S: 19 / F [address] [place] [address] Unit #: [id number] Loc:[place] [address] Phys: Junito Pantoja MD Acct: [id number] Dis Date: Status: REG ER PHONE #: [phone] Exam Date: 03/26/2020 1137 FAX #: [phone] Reason: see US PREG 1st TRIMTR EXAMS: CPT CODE: [id number] DUP AB/PEL/SC/LTD 25622 (Continued) CC: Junito Pantoja MD Technologist: Madai Swenson RDMS(AB) Trnscb Date/Time: 03/26/2020 (1146) [email or web address] Orig Print D/T: S: 03/26/2020 (1149) Probe: PAGE 2 Signed Report- US PREG 1ST [id number] 11:46:00[facility] : 2000 Sex: F Name: SHALOM PARKINSON [facility] : 2000 Age/S: 19 / F [address] [place] [address] Unit #: [id number] Loc: [place] [address] Phys: Junito Pantoja MD Acct: [id number] Dis Date: Status: REG ER PHONE #: [phone] Exam Date: 03/26/2020 1137 FAX #: [phone] Reason: Pelvic Pain EXAMS: CPT CODE: [id number] US PREG 1ST TRIMTR [id number] PROCEDURE: PELVIC ULTRASOUND INDICATION: 1st trimester with nausea and vomiting COMPARISON: None. TECHNIQUE: Grayscale, color and Doppler transabdominal and transvaginal imaging of the pelvis was performed with standard technique. Transvaginal ultrasound is obtained for further evaluation of the endometrium and adnexal regions. FINDINGS : UTERUS: Uterus 12 cm in length. It contains a small intrauterine gestational sac with a yolk sac and a pole. Amniotic fluid is adequate. Curvilinear fluid collection adjacent to the gestationalsac suspicious for subchronic hemorrhage measuring 14 x 3 x 5 mm. A heart rate of 103 bpm recorded. The gestational age 6 weeks based on gestational sac measurement. RIGHT OVARY: 39 x 21 x 21 mm.Small follicles. Normal blood flow on Doppler. 3.1 cm greatest diameter simple cyst likely corpus luteum. LEFT OVARY: 28 x 18 x 14 mm. Normal blood flow on Doppler. BLADDER: Unremarkable. Comments: No adnexal masses. No free intraperitoneal fluid. IMPRESSION: 1. 6 week live intrauterine witharea of subchronic hemorrhage adjacent to the gestational sac. 2. 3.1 cm corpus luteum cyst right ovary. SL: [id number] at 1146 Reported and signed by: Rigoberto Pitts M.D. PAGE 1 Signed Report (CONTINUED) Name: SHALOM PARKINSONlear Fontenot : 2000 Age/S: 19 / F [address] [place] [address] Unit #: [id number] Loc: [facility] [id number] Phys: Junito Pantoja MD Acct: [id number] Dis Date: Status: REG ER PHONE #: [phone] Exam Date: 03/26/20201136 FAX #: [phone] Reason: Pelvic Pain EXAMS: CPT CODE: [id number] US PREG 1ST TRIMTR [id number] (Continued) CC: Junito Pantoja MD Technologist: Madai Swenson RDMS(AB) Trnscb Date/Time: 03/26/2020 (1146) t.ETG Orig Print D/T: S: 03/26/2020 (1149) Probe: PAGE 2 Signed Report- US PREG UT [id number] 11:46:00 [facility] 2000 Sex: F Name: SHALOM PARKINSON [facility] : 2000 Age/S: 19 / F [address] [place] [address] Unit #: [id number] Loc: [facility] Read [id number] Phys: Junito Pantoja MD Acct: [id number] Dis Date: Status: REG ER PHONE #: [phone] Exam Date: 03/26/2020 113 FAX #: [phone] Reason: see US PREG 1st TRIMTR EXAMS: CPT CODE: [id number] US PREG UT TRANSVAGINAL [id number] PROCEDURE: PELVIC ULTRASOUND INDICATION: 1st trimester with nausea and vomiting COMPARISON: None. TECHNIQUE: Grayscale, color and Doppler transabdominal and transvaginal imaging of the pelvis was performed with standard technique. Transvaginal ultrasound is obtained for further evaluation of the endometrium and adnexal regions. FINDINGS: UTERUS: Uterus 12 cm in length. It contains a small intrauterine gestational sacwith a yolk sac and a pole. Amniotic fluid is adequate. Curvilinear fluid collection adjacent to the gestational sac suspicious for subchronic hemorrhage measuring 14 x 3 x 5 mm. A heart rate of 103 bpm recorded. The gestational age 6 weeks based on gestational sac measurement. RIGHT OVARY: 39 x 21 x 21 mm. Small follicles. Normal blood flow on Doppler. 3.1 cm greatest diameter simple cyst likely corpus luteum. LEFT OVARY: 28 x 18 x 14 mm. Normal blood flow on Doppler. BLADDER: Unremarkable. Comments: No adnexal masses. No free intraperitoneal fluid. IMPRESSION: 1. 6 week live intrauterine with area of subchronic hemorrhage adjacent to the gestational sac. 2. 3.1 cm corpus luteum cyst right ovary. SL: [id number] at 1146 Reported and signed by: Rigoberto Pitts M.D. PAGE 1 Signed Report (CONTINUED) Name: SHALOM PARKINSON [facility] : 2000 Age/S: 19 / F [address] [place] [address] Blvd Unit #: [id number] Loc: [place] [address] Phys: Junito Pantoja MD Acct: [id number] Dis Date: Status: REG ER PHONE #: [phone] Exam Date: 03/26/2020 1137 FAX #: [phone] Reason: see US PREG 1st TRIMTR EXAMS:CPT CODE: [id number] US PREG UT TRANSVAGINAL 45141 (Continued) CC: Junito Pantoja MD Technologist: Madai Swenson RDMS(AB) Trnscb Date/Time: 03/26/2020 (1146) [email or web address] Orig Print D/T: S: 03/26/2020 (1149) Probe: [id number] PAGE 2 Signed ReportUA RFLX MICR CULT IF [id number] 11:06:00 Test Item Value Reference Range Interpretation Comments UA COLOR (test code = COLU) YELLOW YEL/STRAW UA APPEARANCE (test code = CLOUDY CLEAR A APPU) UA GLUCOSE DIPSTICK (test code NEGATIVE NEGATIVE = DGLUU) UA BILIRUBIN DIPSTICK (test NEGATIVE NEGATIVE code = BILU) UA KETONE DIPSTICK (test code = 2+ NEGATIVE A KETU) UA SPECIFIC GRAVITY (test code 1.031 1.005-1.030 H = SGU) UA BLOOD DIPSTICK (test code = 2+ NEGATIVE A HANK) UA PH DIPSTICK (test code = 5.0 5.0-7.0 N EVELYN) UA PROTEIN DIPSTICK (test code 2+ NEGATIVE A = PROU) UA UROBILINIOGEN DIPSTICK (test 2.0 mg/dL 0.2-1.0 A code = URO) UA NITRITE DIPSTICK (test code NEGATIVE NEGATIVE = BIJU) UA LEUKOCYTE ESTERASE DIPSTICK NEGATIVE NEGATIVE (test code = LEUU) UA WBC (test code = WBCU) 21-50 WBC/HPF 0-3 A UA RBC (test code = RBCU) 11-20 RBC/HPF 0-3 UA WBC NO REFLEX (test code = 21-50 WBC/HPF 0-3 A WBCUCL) UA BACTERIA (test code = BACU) 4+ /HPF NONE SEEN A UA SQUAMOUS CELLS (test code = 6-10 /HPF NONE SEEN A SQU) UA MUCUS (test code = MUCU) 4+ /LPF NONE SEEN A Indication for culture: RiskForSepsis-no oth srcSpecimen Description: CLEAN CATCHCBC W/AUTO [id number] 10:50:00 Test Item Value Reference Range Interpretation Comments WHITE BLOOD CELL (test code = 11.0 x10 3/uL 4.5-11.0 N WBC) RED BLOOD CELL (test code = 4.73 x10 6/uL 3.54-5.02 N RBC) HEMOGLOBIN (test code = HGB) 14.9 g/dL 11.0-15.0 N HEMATOCRIT (test code = HCT) 43.0 % 33.0-45.0 N MEAN CELL VOLUME (test code = 90.9 fL 81.0-99.0 N MCV) MEAN CELL HGB (test code = MCH) 31.5 pg 27.0-33.0 N MEAN CELL HGB CONCETRATION 34.7 g/dL 33.0-37.0 N (test code = MCHC) RED CELL DISTRIBUTION WIDTH CV 12.3 % 11.5-14.5 N (test code = RDW) RED CELL DISTRIBUTION WIDTH SD 41.2 fL 37.0-54.0 N (test code = RDW-SD) PLATELET COUNT (test code = 339 x10 3/uL 150-400 N PLT) MEAN PLATELET VOLUME (test code 10.1 fL 7.0-9.0 H = MPV) NEUTROPHIL % (test code = NT%) 73.0 % 56.0-77.0 N IMMATURE GRANULOCYTE % (test 0.7 % 0.0-2.0 N code = IG%) LYMPHOCYTE % (test code = LY%) 19.0 % 14.0-32.0 N MONOCYTE % (test code = MO%) 6.6 % 4.8-9.0 N EOSINOPHIL % (test code = EO%) 0.3 % 0.3-3.7 N BASOPHIL % (test code = BA%) 0.4 % 0.0-2.0 N NUCLEATED RBC % (test code = 0.0 % 0-0 N NRBC%) NEUTROPHIL # (test code = NT#) 8.02 x10 3/uL 2.0-7.6 H IMMATURE GRANULOCYTE # (test 0.08 x10 3/uL 0.00-0.03 H code = IG#) LYMPHOCYTE # (test code = LY#) 2.09 x10 3/uL 1.0-3.8 N MONOCYTE # (test code = MO#) 0.73 x10 3/uL 0.1-0.8 N EOSINOPHIL # (test code = EO#) 0.03 x10 3/uL 0.0-0.2 N BASOPHIL # (test code = BA#) 0.04 x10 3/uL 0.0-0.2 N NUCLEATED RBC # (test code = 0.00 x10 3/uL 0.0-0.1 N NRBC#) MANUAL DIFF REQUIRED (test code NO = MDIFF) CBC W/AUTO [id number] 10:42:00 Test Item Value Reference Range Interpretation Comments WHITE BLOOD CELL (test code = x10 3/uL 4.5-11.0 WBC) RED BLOOD CELL (test code = RBC) x10 6/uL 3.54-5.02 HEMOGLOBIN (test code = HGB) 14.9 g/dL 11.0-15.0 N HEMATOCRIT (test code = HCT) 43.0 % 33.0-45.0 N MEAN CELL VOLUME (test code = fL 81.0-99.0 MCV) MEAN CELL HGB (test code = MCH) pg 27.0-33.0 MEAN CELL HGB CONCETRATION (test g/dL 33.0-37.0 code = MCHC) RED CELL DISTRIBUTION WIDTH CV % 11.5-14.5 (test code = RDW) PLATELET COUNT (test code = PLT) 339 x10 3/uL 150-400 N NEUTROPHIL % (test code = NT%) % 56.0-77.0 LYMPHOCYTE % (test code = LY%) % 14.0-32.0 NEUTROPHIL # (test code = NT#) x10 3/uL 2.0-7.6 LYMPHOCYTE # (test code = LY#) x10 3/uL 1.0-3.8 MANUAL DIFF REQUIRED (test code = MDIFF) CHLAMYDIA GC DNA BY [id number] 14:08:00 Test Item Value Reference Range Interpretation Comments C. TRACHOMATIS DNA BY Negative Negative PCR (test code = CHLAMTDNA) N. GONORRHOEAE DNA BY Negative Negative Perfor med At: ST PCR (test code = [facility] NGONORDNA) [id number] [place], [place] [id number] mateo Prabhakar MD Ph:[phone] - DUP AB/PEL/SC/[id number] 01:23:00 Name: SHALOM PARKINSON E [facility] : 2000 Age/S: 18 / F [address] [place] [address] Unit #: [id number] Loc: [place] [address] Phys: Casper Zee DO Acct: [id number] Dis Date: Statu s: REG ER PHONE #: [phone] Exam Date: 12/28/2018 010 FAX #: [phone] Reason: SEE PELVIC EXAMS: CPT CODE: [id number] DUP AB/PEL/SC/LTD 04326 EXAM: US, US PELVIS COMPLETE: 12/27/2018, 2352 hours EXAM: US, US TRANSVAGINAL: 12/27/2018, 2352 hours EXAM: US, DUP AB/PEL/SC LTD: 12/27/2018, 2352 hours History: Pelvic pain. Low abdominal cramping. Brownish discharge. COMPARISON: None. TECHNIQUE: Sonographic evaluation is performed of the pelvis via transabdominal and transvaginal approach using grayscale, color flow and Doppler imaging as appropriate FINDINGS: Transabdominal ultrasound shows poor visualization of the uterus. Endometrium and ovaries are not visualized necessitating endovaginal pelvic ultrasound. Endovaginal pelvic ultrasound shows uterus to be retroverted. Uterus measures 6.7 x 4.5 x 3.5 cm. The endometrial stripe is 8.9 mm in thickness. Trace fluid seen in the endometrial canal. Right ovary: 3.5 x 2.0 x 2.1 cm Left ovary: 3.8 x 1.6 x 1.5 cm A 2.5 x 3.1 x 2.5 cm cyst with debris see n in the right neck subjacent to the right ovary. A 1.4 x 0.9 x 1.2 cm cyst with debris seen in the right adnexa. A 1.0 x 1.0 x 1.0 cm cyst is seen in the left adnexa adjacent to the left ovary. Normalflow is noted to the both ovaries. Trace free fluid seen in the cul-de-sac. IMPRESSION: 1. Bilateral adnexal cysts, right larger. Differential consideration would include paraovarian cyst versus exophytic ovarian cysts. 2. A 1.4 x 0.9 x 1.2 cm right adnexal complex cyst. 3. Trace fluid in the endometrial canal. Endometrial stripe thickness is 8.9 mm. 4. Trace free fluid in the cul-de-sac SL:JSRODNEY PAGE 1 Signed Report (CONTINUED) Name: HILARY PARKINSONNDRA Bo [facility] : 2000 Age/S: 18 / F [address] [place] [address] Unit #: [id number] Loc: [place] [address] Phys: Zee,Casper DO Acct: [id number] Dis Date: Status: REG ER PHONE #: [phone] Exam Date: 12/28/2018100 FAX #: [phone] Reason: SEE PELVIC EXAMS: CPT CODE: [id number] DUP AB/PEL/SC/LTD 60097 (Continued) at 0123 Reported and signed by: Roger Rose M.D. CC: Casper Zee DO Technologist: Marta Ca RDMS(Brenda)(OB) Trnscb Date/Time: 12/28/2018 (0123) [email or web address].[email or web address] Orig Print D/T: S: 12/28/2018 (0126) Probe: PAGE 2 Signed Report- US TRANSVAGINAL NON [id number] 01:23:00 [facility] : 2000 Age/S: 18 / F [address] [place] [address] Unit #: [id number] Loc: [place] [address] Phys: Casper Zee DO Acct: [id number] Dis Date: Status: REG ER PHONE #: [phone] Exam Date: 12/28/2018 010 FAX #: [phone] Reason: CRAMPING EXAMS: CPT CODE: [id number] [place] [id number] EXAM: US, US PELVIS COMPLETE: 12/27/2018, 2352 hours EXAM: US, US TRANSVAGINAL: 12/27/2018, 2352 hours EXAM: US, DUP AB/PEL/SC LTD: 12/27/2018, 2352 hours History: Pelvic pain. Low abdominal cramping. Brownish discharge. COMPARISON: None. TECHNIQUE: Sonographic evaluation is performed of the pelvis via transabdominal and transvaginal approach using grayscale, color flow and Doppler imaging as appropriate FINDINGS: Transabdominal ultrasound shows poor visualization of the uterus. Endometrium and ovaries are not visualized necessitating endovaginal pelvic ultrasound. Endovaginal pelvic ultrasound shows uterus to be retroverted. Uterus measures 6.7 x 4.5 x 3.5 cm. The endometrial stripe is 8.9 mm in thickness. Trace fluid seen in the endometrial canal.Right ovary: 3.5 x 2.0 x 2.1 cm Left ovary: 3.8 x 1.6 x 1.5 cm A 2.5 x 3.1 x 2.5 cm cyst with debrisseen in the right neck subjacent to the right ovary. A 1.4 x 0.9 x 1.2 cm cyst with debris seen in the right adnexa. A 1.0 x 1.0 x 1.0 cm cyst is seen in the left adnexa adjacent to the left ovary. Normal flow is noted to the both ovaries. Trace free fluid seen in the cul-de-sac. IMPRESSION: 1. Bilateral adnexal cysts, right larger. Differential consideration would include paraovarian cyst versus exophytic ovarian cysts. 2. A 1.4 x 0.9 x 1.2 cm right adnexal complex cyst. 3. Trace fluid in the endome trial canal. Endometrial stripe thickness is 8.9 mm. 4. Trace free fluid in the cul-de-sac SL:TAWNYA- PAGE 1 Signed Report (CONTINUED) Name: SHALOM PARKINSON : 2000 Age/S: 18 / F [address] [place] [address] Unit #: [id number] Loc: [place] [address] Phys: Casper Zee DO Acc t: [id number] Dis Date: Status: REG ER PHONE #: [phone] Exam Date: 12/28/2018 0100 FAX #: [phone] Reason: CRAMPING EXAMS: CPT CODE: [id number] [place] [address] (Continued) at 0123 Reported and signed by: Roger Rose M.D. CC: Casper Zee DO Technologist: Marta Ca RDMS(Brenda)(OB) Trnscb Date/Time: 12/28/2018 (0123) [email or web address] Orig Print D/T: S: 12/28/2018 (0126) Probe: [id number] PAGE 2 Signed Report- US PELVIS [id number] 01:23:00 Name: ARTIS PARKINSONRA [facility] : 2000 Age/S: 18 / F [address] [place] [address] Unit #: [id number] Loc: [place] [address] Phys: Casper Zee DO Acct: [id number] Dis Date: Status: REG ER PHONE #: [phone] Exam Date: 12/28/2018 0100 FAX #: [phone] Reason: pelvic pain EXAMS: CPT CODE: [id number] US PELVIS COMPLETE 70073 EXAM: US, US PELVIS COMPLETE: 12/27/2018, 2352 hours EXAM: US, US TRANSVAGINAL: 12/27/2018, 2352 hours EXAM: US, DUP AB/PEL/SC LTD: 12/27/2018, 2352 hours History: Pelvic pain. Low abdominal cramping. Brownish discharge. COMPARISON: None. TECHNIQUE: Sonographic evaluation is performed of the pelvis via transabdominal and transvaginal approach using grayscale, color flow and Doppler imaging as appropriate FINDINGS: Transabdominal ultrasound shows poor visualization of the uterus. Endometrium and ovaries are not visualized necessitating endovaginal pelvic ultrasound. Endovaginal pelvic ultrasound shows uterus to be retroverted. Uterus measures 6.7 x 4.5 x3.5 cm. The endometrial stripe is 8.9 mm in thickness. Trace fluid seen in the endometrial canal. Right ovary: 3.5 x 2.0 x 2.1 cm Left ovary: 3.8 x 1.6 x 1.5 cm A 2.5 x 3.1 x 2.5 cm cyst with debris seen in the right neck subjacent to the right ovary. A 1.4 x 0.9 x 1.2 cm cyst with debris seen in the right adnexa. A 1.0 x 1.0 x 1.0 cm cyst is seen in the left adnexa adjacent to the left ovary. Normalflow is noted to the both ovaries. Trace free fluid seen in the cul-de-sac. IMPRESSION: 1. Bilateraladnexal cysts, right larger. Differential consideration would include paraovarian cyst versus exophytic ovarian cysts. 2. A 1.4 x 0.9 x 1.2 cm right adnexal complex cyst. 3. Trace fluid in the endometri al canal. Endometrial stripe thickness is 8.9 mm. 4. Trace free fluid in the cul-de-sac SL:JSYED-H PAGE 1 Signed Report (CONTINUED) Name: PARKINSONSHALOM Bo [facility] : 2000 Age/S:18 / F [address] [place] [address] Unit #: [id number] Loc: [place] [address] Phys: Casper Zee DO Acct:[id number] Dis Date: Status: REG ER PHONE #: [phone] Exam Date: 12/28/201899 FAX #: [phone] Reason: pelvic pain EXAMS: CPT CODE: [id number] US PELVIS COMPLETE 19647 (Continued) at 0123 Reported and signed by: Roger Rose M.D. CC: Casper Zee DO Technologist: Marta Ca RDMS(Brenda)(OB) Trnscb Date/Time: 12/28/2018 (012) [email or web address] Orig Print D/T: S: 12/28/2018 (012) Probe: PAGE 2 Signed ReportUA RFLX MICR CULT IF [id number] 00:05:00 Test Item Value Reference Range Interpretation Comments UA COLOR (test code = COLU) YELLOW YEL/STRAW UA APPEARANCE (test code = APPU) SL CLOUDY CLEAR UA GLUCOSE DIPSTICK (test code = NEGATIVE NEGATIVE DGLUU) UA BILIRUBIN DIPSTICK (test code NEGATIVE NEGATIVE = BILU) UA KETONE DIPSTICK (test code = NEGATIVE NEGATIVE KETU) UA SPECIFIC GRAVITY (test code = 1.016 1.005-1.030 N SGU) UA BLOOD DIPSTICK (test code = 2+ NEGATIVE A HANK) UA PH DIPSTICK (test code = EVELYN) 6.0 5.0-7.0 N UA PROTEIN DIPSTICK (test code = NEGATIVE NEGATIVE PROU) UA UROBILINIOGEN DIPSTICK (test 0.2 mg/dL 0.2-1.0 code = URO) UA NITRITE DIPSTICK (test code = NEGATIVE NEGATIVE BIJU) UA LEUKOCYTE ESTERASE DIPSTICK NEGATIVE NEGATIVE (test code = LEUU) UA WBC (test code = WBCU) 0-3 WBC/HPF 0-3 UA RBC (test code = RBCU) 4-10 RBC/HPF 0-3 UA WBC NO REFLEX (test code = 0-3 WBC/HPF 0-3 WBCUCL) UA BACTERIA (test code = BACU) TRACE /HPF NONE SEEN UA SQUAMOUS CELLS (test code = 6-10 /HPF NONE SEEN A SQU) UA MUCUS (test code = MUCU) TRACE /LPF NONE SEEN Indication for culture: Suprapubic PainSpecimen Description: CLEAN CATCHHCG SERUM [id number] 23:59:00 Test Item Value Reference Range Interpretation Comments HCG SERUM QUAL (test code = SERUM NEGATIVE NEGATIVE HCGQL) CBC W/AUTO [id number] 23:52:00 Test Item Value Reference Range Interpretation Comments WHITE BLOOD CELL (test code = 12.38 x10 3/uL 4.5-11.0 H WBC) RED BLOOD CELL (test code = 4.55 x10 6/uL 3.54-5.02 N RBC) HEMOGLOBIN (test code = HGB) 13.9 g/dL 11.0-15.0 N HEMATOCRIT (test code = HCT) 42.2 % 33.0-45.0 N MEAN CELL VOLUME (test code = 92.7 fL 81.0-99.0 N MCV) MEAN CELL HGB (test code = 30.5 pg 27.0-33.0 N MCH) MEAN CELL HGB CONCETRATION 32.9 g/dL 33.0-37.0 L (test code = MCHC) RED CELL DISTRIBUTION WIDTH CV 12.7 % 11.5-14.5 N (test code = RDW) RED CELL DISTRIBUTION WIDTH SD 43.8 fL 37.0-54.0 N (test code = RDW-SD) PLATELET COUNT (test code = 358 x10 3/uL 150-400 N PLT) MEAN PLATELET VOLUME (test 10.8 fL 7.0-9.0 H code = MPV) NEUTROPHIL % (test code = NT%) 59.5 % 56.0-77.0 N IMMATURE GRANULOCYTE % (test 0.5 % 0.0-2.0 N code = IG%) LYMPHOCYTE % (test code = LY%) 32.1 % 14.0-32.0 H MONOCYTE % (test code = MO%) 6.8 % 4.8-9.0 N EOSINOPHIL % (test code = EO%) 0.7 % 0.3-3.7 N BASOPHIL % (test code = BA%) 0.4 % 0.0-2.0 N NUCLEATED RBC % (test code = 0.0 % 0-0 N NRBC%) NEUTROPHIL # (test code = NT#) 7.36 x10 3/uL 2.0-7.6 N IMMATURE GRANULOCYTE # (test 0.06 x10 3/uL 0.00-0.03 H code = IG#) LYMPHOCYTE # (test code = LY#) 3.98 x10 3/uL 1.0-3.8 H MONOCYTE # (test code = MO#) 0.84 x10 3/uL 0.1-0.8 H EOSINOPHIL # (test code = EO#) 0.09 x10 3/uL 0.0-0.2 N BASOPHIL # (test code = BA#) 0.05 x10 3/uL 0.0-0.2 N NUCLEATED RBC # (test code = 0.00 x10 3/uL 0.0-0.1 N NRBC#) MANUAL DIFF REQUIRED (test NO code = MDIFF) CHEMISTRY 8 [id number] 23:45:00 Test Item Value Reference Range Interpretation Comments ISTAT-SODIUM (test code = NAP) MMOL/L 134-147 ISTAT-POTASSIUM (test code = KP) MMOL/L 3.4-5.0 ISTAT-CHLORIDE (test code = CLP) MMOL/L 100-108 ISTAT CARBON DIOXIDE (test code = mmol/L 21-33 N ISTAT-CO2) ISTAT CALCIUM IONIZED (test code = MG/DL 1.12-1.32 ISTAT-KARON) ISTAT-GLUCOSE (test code = GLUP) MG/DL 70-110 H ISTAT-BUN (test code = BUNP) MG/DL 7-18 N BEDSIDE CREATININE (test code = MG/DL 0.6-1.3 N CREATBED) GLOMERULAR FILTRATION RATE POC 97 ML/MIN (test code = GFRBED) CHEMISTRY 8 [id number] 23:45:00 Test Item Value Reference Range Interpretation Comments ISTAT-SODIUM (test 140 MMOL/L 134-147 N code = NAP) ISTAT-POTASSIUM (test 3.4 MMOL/L 3.4-5.0 N code = KP) ISTAT-CHLORIDE (test 101 MMOL/L 100-108 N Perform ed by code = CLP) certified opera tor at [facility] ISTAT CARBON DIOXIDE 26.0 mmol/L 21-33 N (test code = ISTAT-CO2) ISTAT CALCIUM IONIZED 1.22 MG/DL 1.12-1.32 N (test code = ISTAT-KARON) ISTAT-GLUCOSE (test 111 MG/DL 70-110 H code = GLUP) ISTAT-BUN (test code = 10 MG/DL 7-18 N BUNP) BEDSIDE CREATININE 0.8 MG/DL 0.6-1.3 N (test code = CREATBED) GLOMERULAR FILTRATION 97 ML/MIN RATE POC (test code = GFRBED) URINALYSIS [id number] 13:24:00 Test Item Value Reference Range Interpretation Comments UA COLOR (test code = COLU) YELLOW YEL/STRAW UA APPEARANCE (test code = CLEAR CLEAR APPU) UA GLUCOSE DIPSTICK (test code NEGATIVE NEGATIVE = DGLUU) UA BILIRUBIN DIPSTICK (test NEGATIVE NEGATIVE code = BILU) UA KETONE DIPSTICK (test code = NEGATIVE NEGATIVE KETU) UA SPECIFIC GRAVITY (test code 1.011 1.005-1.030 N = SGU) UA BLOOD DIPSTICK (test code = NEGATIVE NEGATIVE HANK) UA PH DIPSTICK (test code = 6.0 5.0-7.0 N EVELYN) UA PROTEIN DIPSTICK (test code NEGATIVE NEGATIVE = PROU) UA UROBILINIOGEN DIPSTICK (test 0.2 mg/dL 0.2-1.0 code = URO) UA NITRITE DIPSTICK (test code NEGATIVE NEGATIVE = BIJU) UA LEUKOCYTE ESTERASE DIPSTICK 3+ NEGATIVE A (test code = LEUU) UA WBC (test code = WBCU) >50 WBC/HPF 0-3 A UA RBC (test code = RBCU) 11-20 RBC/HPF 0-3 UA BACTERIA (test code = BACU) 2+ /HPF NONE SEEN A UA SQUAMOUS CELLS (test code = 0-5 /HPF NONE SEEN SQU) UA MUCUS (test code = MUCU) TRACE /LPF NONE SEEN UR HCG [id number] 13:22:00 Test Item Value Reference Range Interpretation Comments UR HCG QUAL (test code = HCGQLU) NEGATIVE NEGATIVE
[2022-06-12] MEDS ORDERED: KETOROLAC 30 MG/ML INJ ONE (12:10)
[2022-06-12] MEDS ORDERED: NA CHLORIDE 0.9% 1,000 ML ONE (12:11)
[2022-06-12 12:34] LABS: Absolute Lymphocytes (CBC) 2.3 K/uL (0.7-4.9); Hematocrit 38.4 % (36.0-45.0); Lymphocytes % 26.9 % (15.3-44.8); MCV 87.9 fL (80-100); MPV 7.5 fL (7.6-11.3); RBC Red Blood Cell Count 4.37 M/uL (3.86-4.86)
--- NOTE | 2022-06-12 12:36 | RAD REPORT ---
EXAM DESCRIPTION: Laura Single View06/12/2022 12:21 pm CLINICAL HISTORY: Cough COMPARISON: none FINDINGS: Mild opacity medial right base Remainder lungs appear clear Heart is normal size The heart is normal size IMPRESSION: Mild opacity medial right base may indicate pneumonia
[2022-06-12 12:49] LABS: Potassium 3.8 mmol/L (3.5-5.1)
--- NOTE | 2022-06-12 13:11 | EDPHYS ---
Physician Documentation [facility] Name: Ashley Estevez Age: 22 yrs Sex: Female : 2000 Arrival Date: 06/12/2022 Time: 11:35 Bed 11 Private MD: ED Physician Jose Lehman HPI: 06/12 11:50 This 22 yrs old Female presents to ER via Ambulatory with complaints of jh7 Shortness Of Breath - pneumonia+, Back Pain. 11:50 22-year-old female was seen 2 days ago for back pain and diagnosed with jh7 community-acquired pneumonia. She reports that her back pain has worsened and that she experiences pain with coughing, movement, and taking a deep breath. Denies any fever or shortness of breath. Reports that her cough has worsened. Reports that she is currently taking 2 antibiotics prescribed by the ER.. 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 - Social history:: Smoking status: Reported history of juuling and/or vaping. Patient uses street drugs, marijuana. ROS: 11:50 Constitutional: Negative for fever, chills, and weight loss, Eyes: Negative for injury, jh7 pain, redness, and discharge, ENT: Negative for injury, pain, and discharge, Cardiovascular: Negative for chest pain, palpitations, and edema, Abdomen/GI: Negative for abdominal pain, nausea, vomiting, diarrhea, and constipation, MS/Extremity: Negative for injury and deformity, Skin: Negative for injury, rash, and discoloration, Neuro: Negative for headache, weakness, numbness, tingling, and seizure. 11:50 Respiratory: Positive for cough, Negative for shortness of breath, wheezing. 11:50 Back: Positive for pain with movement. 11:50 All other systems are negative. Exam: 11:50 Head/Face: Normocephalic, atraumatic. Eyes: Pupils equal round and reactive to light, jh7 extra-ocular motions intact. Lids and lashes normal. Conjunctiva and sclera are non-icteric and not injected. Cornea within normal limits. Periorbital areas with no swelling, redness, or edema. ENT: Nares patent. No nasal discharge, no septal abnormalities noted. Tympanic membranes are normal and external auditory canals are clear. Oropharynx with no redness, swelling, or masses, exudates, or evidence of obstruction, uvula midline. Mucous membranes moist. Cardiovascular: Regular rate and rhythm with a normal S1 and S2. No gallops, murmurs, or rubs. Normal PMI, no JVD. No pulse deficits. Abdomen/GI: Soft, non-tender, with normal bowel sounds. No distension or tympany. No guarding or rebound. No evidence of tenderness throughout. Back: No spinal tenderness. No costovertebral tenderness. Full range of motion. Skin: Warm, dry with normal turgor. Normal color with no rashes, no lesions, and no evidence of cellulitis. MS/ Extremity: Pulses equal, no cyanosis. Neurovascular intact. Full, normal range of motion. Neuro: Awake and alert, GCS 15, oriented to person, place, time, and situation. Motor strength 5/5 in all extremities. Sensory grossly intact. Normal gait. 11:50 Constitutional: The patient appears alert, awake, uncomfortable. 11:50 Respiratory: the patient does not display signs of respiratory distress, Respirations: normal, Breath sounds: decreased breath sounds, that are mild, are heard in the left lower lobe, right lower lobe and right posterior lower lobe. Vital Signs: 11:44 BP 119 / 95; Pulse 72; Resp 18; Temp 98.5; Pulse Ox 100% on R/A; Weight 39.01 kg; iw Height 5 ft. 0 in. (152.40 cm); Pain 10/10; 12:28 BP 112 / 89; Pulse 76; Resp 16; Pulse Ox 99% on R/A; mb9 13:46 BP 100 / 88; Pulse 80; Resp 14; Pulse Ox 99% ; mb9 11:44 Body Mass Index 16.80 (39.01 kg, 152.40 cm) iw MDM: 11:39 Patient medically screened. jh7 13:12 Differential diagnosis: pneumonia, Pleurisy, costochondritis. Antibiotic 7 administration: The patient is discharged and will get outpatient antibiotics, Patient currently prescribed antibiotics by ER provider 2 days ago. Data interpreted: Pulse oximetry: is 99 %. Interpretation: normal. The patient's pulmonary embolism risk score was calculated as follows: No Risks (0 Pts). Data reviewed: vital signs, nurses notes, lab test result(s), radiologic studies, plain films. I considered the following discharge prescriptions or medication management in the emergency department Medications were administered in the Emergency Department. See MAR. Counseling: I had a detailed discussion with the patient and/or guardian regarding: the historical points, exam findings, and any diagnostic results supporting the discharge/admit diagnosis, to return to the emergency department if symptoms worsen or persist or if there are any questions or concerns that arise at home. Special discussion: The patient stated that she was only prescribed 2 antibiotics at discharge this past Thursday. She was advised to continue both antibiotics to completion, and would also be prescribed cough medicine, an inhaler, and an anti-inflammatory to help with pleuritic pain. If she develops any new concerning symptoms, she may return to the ER for further eval.. 06/12 11:58 Order name: CBC with Diff 06/12 11:58 Order name: BMP [facility] 06/12 11:58 Order name: Lactate w/ 2H reflex if indic. [facility] 06/12 11:58 Order name: Lipase [facility] 06/12 12:42 Order name: CBC with Automated Diff; Complete Time: 12:42 EDMS 06/12 12:49 Order name: Basic Metabolic Panel; Complete Time: 13:08 EDMS 06/12 11:58 Order name: Chest Single View XRAY [facility] 06/12 12:02 Order name: IV Saline Lock; Complete Time: 12:27 mb9 06/12 12:36 Order name: RAD; Complete Time: 12:42 EDMS 06/12 12:49 Order name: Lipase; Complete Time: 13:08 EDMS 06/12 12:57 Order name: Lactate w/ 2H reflex if indic.; Complete Time: 13:08 EDMS Administered Medications: 12:28 Drug: NS 0.9% 1000 ml Route: IV; Rate: 1 bolus; Site: right forearm; mb9 13:46 Follow up: IV Status: Completed infusion mb9 12:28 Drug: Ketorolac 30 mg Route: IVP; Site: right forearm; mb9 13:46 Follow up: Response: No adverse reaction mb9 Disposition: 13:56 Co-signature as Attending Physician, Jose Lehman DO I was immediately available on-site ms3 in the Emergency Department for consultation in the care of the patient. Disposition Summary: 06/12/22 13:11 Discharge Ordered Location: Home [facility] Problem: new [facility] Symptoms: have improved [facility] Condition: Fair 7 Diagnosis - Community-acquired pneumonia 7 - Pleurisy jh7 Followup: [facility] - With: Private Physician - When: 2 - 3 days - Reason: Recheck today's complaints Discharge Instructions: - Discharge Summary Sheet 7 - Pleurisy 7 - Community-Acquired Pneumonia, Adult [facility] Forms: - Medication Reconciliation Form [facility] - Thank You Letter [facility] - Antibiotic Education [facility] - Work release form em1 Prescriptions: - Bromfed DM 2-30-10 mg/5 mL Oral syrup - take 10 milliliter by ORAL route every 4-6 hours As needed; 240 milliliter; [facility] Refills: 0, Product Selection Permitted - ProAir HFA 90 mcg/actuation Inhalation HFA aerosol inhaler - inhale 2 puff by INHALATION route every 4-6 hours As needed; 1 Inhaler; 7 Refills: 0, Product Selection Permitted - Naprosyn 500 mg Oral Tablet - take 1 tablet by ORAL route 2 times per day take with food; 30 tablet; Refills: [facility] 0, Product Selection Permitted Signatures: Dispatcher [employer] Lexis Saldaña, RN Jose Hunter DO DO ms3 Cami Siddiqui, CHIEF I DISPATCHER CHIEF I DISPATCHER jh7 Charlene Meneses RN RN mb9
--- NOTE | 2022-06-12 13:11 | ER ---
Nurse's Notes [facility] Name: Ashley Estevez Age: 22 yrs Sex: Female : 2000 Arrival Date: 06/12/2022 Time: 11:35 Bed 11 Private MD: Diagnosis: Community-acquired pneumonia;Pleurisy Presentation: 06/12 11:44 Chief complaint: Patient states: 3 days ago I had really bad back pain, was diagnosed iw with aggie pneumonia, pain is worse and can't sit up straight , hurts when I cough or sneeze , was started on antibiotics. Coronavirus screen: Client presents with at least one sign or symptom that may indicate coronavirus-19. Ebola Screen: Patient negative for fever greater than or equal to 101.5 degrees Fahrenheit, and additional compatible Ebola Virus Disease symptoms Patient denies exposure to infectious person. Patient denies travel to an Ebola-affected area in the 21 days before illness onset. No symptoms or risks identified at this time. Initial Sepsis Screen: Does the patient meet any 2 criteria? No. Patient's initial sepsis screen is negative. Does the patient have a suspected source of infection? No. Patient's initial sepsis screen is negative. Risk Assessment: Do you want to hurt yourself or someone else? Patient reports no desire to harm self or others. Onset of symptoms was June 12, 2022. 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 - Social history:: Smoking status: Reported history of juuling and/or vaping. Patient uses street drugs, marijuana. Assessment: 12:10 General: Appears uncomfortable. Pain: Complains of pain in chest Pain radiates to whole mb9 body Pain currently is 8 out of 10 on a pain scale. Quality of pain is described as aching, Is intermittent, Aggravated by coughing. Neuro: Coleman Agitation-Sedation Scale (RASS): 0 - Alert and Calm Level of Consciousness is awake, alert, obeys commands, Oriented to person, place, time, situation, Appropriate for age. Cardiovascular: Capillary refill < 3 seconds is brisk Patient's skin is warm and dry. Rhythm is regular. Respiratory: Reports shortness of breath cough that is non-productive, Airway is patent Respiratory effort is even, unlabored, Respiratory pattern is regular, symmetrical, Breath sounds are coarse bilaterally. GI: Abdomen is flat, non-distended, Bowel sounds present X 4 quads. Abd is soft and non tender X 4 quads. Reports diarrhea, nausea. : No signs and/or symptoms were reported regarding the genitourinary system. Derm: Skin is pink, warm \T\ dry. Musculoskeletal: Range of motion: intact in all extremities. 13:29 Reassessment: No changes from previously documented assessment. Patient and/or family mb9 updated on plan of care and expected duration. Pain level reassessed. Patient is alert, oriented x 3, equal unlabored respirations, skin warm/dry/pink. Vital Signs: 11:44 BP 119 / 95; Pulse 72; Resp 18; Temp 98.5; Pulse Ox 100% on R/A; Weight 39.01 kg; iw Height 5 ft. 0 in. (152.40 cm); Pain 10/10; 12:28 BP 112 / 89; Pulse 76; Resp 16; Pulse Ox 99% on R/A; mb9 13:46 BP 100 / 88; Pulse 80; Resp 14; Pulse Ox 99% ; mb9 11:44 Body Mass Index 16.80 (39.01 kg, 152.40 cm) ED Course: 11:35 Patient arrived in ED. as 11:38 Cami Siddiqui FNP is PHCP. jh7 11:38 Jose Lehman DO is Attending Physician. jh7 11:46 Triage completed. iw 11:47 Arm band placed on. iw 12:02 Charlene Meneses, KYLE is Primary Nurse. mb9 12:27 Lipase Sent. mb9 12:28 BMP Sent. mb9 12:28 CBC with Diff Sent. mb9 13:47 IV discontinued, intact, bleeding controlled, No redness/swelling at site. Pressure mb9 dressing applied. Administered Medications: 12:28 Drug: NS 0.9% 1000 ml Route: IV; Rate: 1 bolus; Site: right forearm; mb9 13:46 Follow up: IV Status: Completed infusion mb9 12:28 Drug: Ketorolac 30 mg Route: IVP; Site: right forearm; mb9 13:46 Follow up: Response: No adverse reaction mb9 Outcome: 13:11 Discharge ordered by . 7 13:47 Discharged to home ambulatory. mb9 13:47 Condition: stable 13:47 Discharge instructions given to patient, Instructed on discharge instructions, follow up and referral plans. Demonstrated understanding of instructions, follow-up care, medications, Prescriptions given X 3. 13:47 Patient left the ED. mb9 Signatures: Tory Lipscomb Irene, RN RN Cami Arreola FNP DIRECTOR LOAN [facility] Charlene Meneses RN RN mb9
[2022-06-12 14:04] VITALS: TEMP 98.5
[2022-06-12 14:05] VITALS: O2SAT 99
[2022-06-12 14:07] VITALS: BP 100/88
== END 2022-06-12 13:47 | disposition home or self-care (01) ==
LOC: ER 11:33
DX: R09.1 Pleurisy (principal); J18.9 Pneumonia, unspecified organism
CPT/HCPCS: 96361; 85025; 80048; 36415; 83605; 83690; 71045; 96374; 99283; J7030

== ENCOUNTER 2024-05-25 19:10 | Emergency (ER) | payer SELFPAY ==
--- OUTSIDE RECORDS SUMMARY | 2024-05-25 19:13 | XMS REPORT | Continuity of Care Document ---
Author Name Unknown Address [address] [facility] [address] [place] [address] [facility] thconnect Address [address] [facility] [address] [place] [address] Care Team Providers Care Casey Saw Operator Name Role Phone PCP, PATIENT DOES NOT HAVE A Primary Care Physic Gaye Goodwin MD Attending Clinician Unknown, Attending Attending Clinician GYAE Leger Attending Clinician Unavailable JOHNY MIN Attending Clinician Elmer Gama Attending Clinician UnavailNilton Zuleta Attending Clinician Unavailable Taisha Edouard Attending Clinician Julissa Wei Attending Clinician Elmer Shah Admitting Clinician Unavailabl e Payers Payer Name Policy Type Policy Number Effective Date Expirati on Date Source Allergies, Adverse Reactions, Alerts Allergy Name Allergy Type Status Severity Reaction(s) Onset Date Inactive Date Treating Clinician Comments Source No Known Allergie s DA Active U 11-11 00:00: 00 [facility] No Known Allergie s DA Active U 11-11 00:00: 00 [facility] No Known Allergie s DA Active U 10-24 00:00: 00 [facility] No Known Allergie s DA Active U 10-24 00:00: 00 [facility] No Known Allergie s DA Active U 2019-04 00:00: 00 [facility] No Known Allergie s DA Active U 2019-04 00:00: 00 [facility] No Known Allergie s DA Active U 05-24 00:00: 00 [facility] No Known Allergie s DA Active U 05-24 00:00: 00 [facility] NO KNOWN ALLERGIE S Drug Class Active [facility] Social History Social Habit Start Date Stop Date Quantity Comments Source Sexual orientation U [facility] Sex Assigned At 2000 00:00:00 2000 00:00:00 [facility] Smoking Status Start Date Stop Date Source Tobacco smoking consumption unknown [facility] Medications Ordered Medication Name Filled Medication Name Start Date Stop Date Current Medication? Ordering Clinician Indication Dosage Frequency Signature (SIG) Comments Components Source polymyxin B sulf-trimet hoprim 10,000 unit- 1 mg/mL ophthalmic drops 2022-04 00:00: 00 04-14 05:59 :00 No [id number] 1[drp] Place 1 Drop in both eyes 4 (four) times daily for 7 days. [facility] Vital Signs Vital Name Observation Time Observation Value Comments S flako Systolic blood pressure 2023-04-06 20:04:00 106 mm[Hg] [facility] Diastolic blood pressure 2023-04-06 20:04:00 71 mm[Hg] [place] [facility] Heart rate 2023-04-06 20:04:00 82 /min [facility] Body temperature 2023-04-06 20:04:00 36.94 [place] [facility] Respiratory rate 2023-04-06 20:04:00 20 /min [facility] Body height 2023-04-06 20:04:00 152.4 cm [facility] Body weight 2023-04-06 20:04:00 43.954 kg [facility] BMI 2023-04-06 20:04:00 18.92 kg/m2 [facility] Oxygen saturation in Arterial blood by Pulse oximetry 2023-04-06 20:04:00 99 /min [facility] Procedures Procedure Date / Time Performed Performing Clinicia n Source [id number] 2020-11-12 00:00:00 [facility] [id number] 2020-11-12 00:00:00 [facility] [id number] 2020-11-12 00:00:00 [facility] [id number] 2020-11-12 00:00:00 [facility] [id number] 2020-11-11 00:00:00 [facility] [id number] 2020-11-11 00:00:00 [facility] [id number] 2020-11-11 00:00:00 [facility] [id number] 2020-11-11 00:00:00 [facility] Encounters Start Date/Time End Date/Time Encounter Type Admission Type Attending Clinicians Care Facility Care Department Encounter ID Source 2020-04-23 17:49:00 Inpatient [facility] NAKUL [id number] [facility] 2020-03-26 10:03:00 Inpatient [facility] NAKUL [id number] [facility] 2023-04-06 13:10:00 2023-04-06 13:30:00 Urgent Care Gaye Santana Unknown, Attending [facility] [id number] [facility] 2023-04-06 13:10:00 2023-04-06 13:10:00 Outpatient R GAYE SANTANA [facility] [id number] [facility] 2021-10-25 15:39:00 2021-10-25 20:30:00 Emergency E MECHELLE JOHNY [facility] [id number] [facility] 2020-11-11 17:33:00 2020-11-14 15:33:00 Inpatient EM Elmer Zapien [facility] OBPP [id number] [facility] 2020-11-11 17:33:00 2020-11-14 15:33:00 Inpatient EM Elmer Zapien [facility] [id number] [facility] 2020-11-10 11:53:00 2020-11-10 13:57:00 Emergency EM Nilton Gastelum [facility] NAKUL [id number] [facility] 2020-11-06 18:17:00 2020-11-06 19:55:00 Emergency EM Taisha Edouard [facility] DANYELL [id number] [facility] 2020-10-24 21:18:00 2020-10-24 23:21:00 Emergency EM Julissa Earl [facility] DANYELL [id number] [facility] 2020-09-27 14:49:00 2020-09-28 17:28:00 Inpatient EM Elmer Zapien [facility] OBANTE [id number] [facility] Results Test Description Test Time Test Comments Results Result Co mments Source CBC W/AUTO [id number] 07:37:00* Test Item Value Reference Range Interpretation Comme nts WHITE BLOOD CELL (test code = WBC) 13.5 x10 3/uL 4.5-11.0 H RED BLOOD CELL (test code = RBC) 3.08 x10 6/uL 3.54-5.02 L HEMOGLOBIN (test code = HGB) 9.5 g/dL 11.0-15.0 L HEMATOCRIT (test code = HCT) 29.3 % 33.0-45.0 L MEAN CELL VOLUME (test code = MCV) 95.1 fL 81.0-99.0 MEAN CELL HGB (test code = MCH) 30.8 pg 27.0-33.0 N MEAN CELL HGB CONCETRATION (test code = MCHC) 32.4 g/dL 33.0-37.0 L RED CELL DISTRIBUTION WIDTH CV (test code = RDW) 13.5 % 11.5-14.5 N RED CELL DISTRIBUTION WIDTH SD (test code = RDW-SD) 46.9 fL 37.0-54.0 N PLATELET COUNT (test code = PLT) 192 x10 3/uL 150-400 N MEAN PLATELET VOLUME (test c ode = MPV) 11.0 fL 7.0-9.0 H NEUTROPHIL % (test code = NT%) 69.4 % 56.0-77.0 N IMMATURE GRANULOCYTE % (test code = IG%) 0.7 % 0.0-2.0 N LYMPHOCYTE % (test code = LY%) 21.5 % 14.0-32.0 N MONOCYTE % (test code = MO%) 7.7 % 4.8-9.0 N EOSINOPHIL % (test code = EO%) 0.4 % 0.3-3.7 N BASOPHIL % (test code = BA%) 0.3 % 0.0-2.0 N NUCLEATED RBC % (test code = NRBC%) 0.0 % 0-0 N NEUTROPHIL # (test code = NT#) 9.37 x10 3/uL 2.0-7.6 H IMMATURE GRANULOCYTE # (test code = IG#) 0.10 x10 3/uL 0.00-0.03 H LYMPHOCYTE # (test code = LY#) 2.90 x10 3/uL 1.0-3.8 N MONOCYTE # (test code = MO#) 1.04 x10 3/uL 0.1-0.8 H EOSINOPHIL # (test code = EO#) 0.06 x10 3/uL 0.0-0.2 N BASOPHIL # (test code = BA#) 0.04 x10 3/uL 0.0-0.2 N NUCLEATED RBC # (test code = NRBC#) 0.00 x10 3/uL 0.0-0.1 N MANUAL DIFF REQUIRED (test c ode = MDIFF) NO RAPID PLASMA [id number] 10:53:00* Test Item Value Reference Range Interpretation Comme nts RAPID PLASMA REAGIN (test co de = RPR) NONREACTIVE NONREACTIVE AG HEPATITIS B [id number] 10:53:00* Test Item Value Reference Range Interpretation Comme nts AG HEPATITIS B SURFACE (test code = HBSAG) NON REACTIVE INDEX NonReactive AB HIV 1 10:53:00* Test Item Value Reference Range Interpretation Comme nts AB HIV 1 2 (test code = [id number]) NONREACTIVE INDEX NONREACTIVE RAPID PLASMA [id number] 19:19:00* Test Item Value Reference Range Interpretation Comme nts RAPID PLASMA REAGIN (test code = RPR) NONREACTI VE AG HEPATITIS B [id number] 19:19:00* Test Item Value Reference Range Interpretation Comme nts AG HEPATITIS B SURFACE (test code = HBSAG) NON REACTIVE INDEX NonReactive AB HIV 1 19:19:00* Test Item Value Reference Range Interpretation Comme nts AB HIV 1 2 (test code = [id number]) NONREACTIVE INDEX NONREACTIVE COVID 19 Asymptomatic IH [id number] 18:38:00* Test Item Value Reference Range Interpretation Comme nts COVID 19 Asymptomatic IH AG (test code = COVNONPUIAG) Negative Negative A negative resul t is presumptive and should be confirmedwith an FDA authorized molecular assay, if necessary forpatient management.A positive result does not rule out co-infections withother pathogens.This test detects both viable (live) and non-viable,SARS-CoV, and SARS-CoV-2. Test performance depends on theamount of virus (antigen) in the sample.This test has not been FDA cleared or approved; the test hasbeen authorized by FDA under an Emergency Use Authorization(EUA) for use by laboratories certified under the CLIA thatmeet the requirements to perform moderate, high or waivedcomplexity tests. COMMENTS: If not done this admissionCOMPREHENSIVE METABOLIC [id number] 16:38:00* Test Item Value Reference Range Interpretation Comme nts SODIUM (test code = NA) 136 mEq/L 134-147 N POTASSIUM (test code = K) 4.0 mEq/L 3.4-5.0 N CHLORIDE (test code = CL) 107 mEq/L 100-108 N CARBON DIOXIDE (test code = CO2) 23 mEq/l 21-33 N ANION GAP (test code = GAP) 10 0-20 N GLUCOSE (test code = GLU) 83 mg/dL 70-110 N BLOOD UREA NITROGEN (test code = BUN) 6 mg/dL 7-18 L GLOMERULAR FILTRATION RATE (test code = GFR) 125.0 110-120 H Units of measure = ml/min/1.73 m2 CREATININE (test code = CREAT) 0.6 mg/dL 0.6-1.3 N TOTAL PROTEIN (test code = PROT) g/dL 6.4-8.2 ALBUMIN (test code = ALB) g/dL 3.4-5.0 CALCIUM (test code = CA) 9.0 mg/dL 8.0-10.5 N BILIRUBIN TOTAL (test code = BILT) mg/dL 0.0-1.0 SGOT/AST (test code = AST) IUnit/L 15-37 SGPT/ALT (test code = ALT) IUnit/L 30-65 ALKALINE PHOSPHATASE TOTAL (test code = ALKP) IUnit/L 20-125 COMPREHENSIVE METABOLIC [id number] 16:38:00* Test Item Value Reference Range Interpretation Comme nts SODIUM (test code = NA) 136 mEq/L 134-147 N POTASSIUM (test code = K) 4.0 mEq/L 3.4-5.0 N CHLORIDE (test code = CL) 107 mEq/L 100-108 N CARBON DIOXIDE (test code = CO2) 23 mEq/l 21-33 N ANION GAP (test code = GAP) 10 0-20 N GLUCOSE (test code = GLU) 83 mg/dL 70-110 N BLOOD UREA NITROGEN (test code = BUN) 6 mg/dL 7-18 L GLOMERULAR FILTRATION RATE (test code = GFR) 125.0 110-120 H Units of measure = ml/min/1.73 m2 CREATININE (test code = CREAT) 0.6 mg/dL 0.6-1.3 N TOTAL PROTEIN (test code = PROT) 6.8 g/dL 6.4-8.2 N ALBUMIN (test code = ALB) 3.00 g/dL 3.4-5.0 L CALCIUM (test code = CA) 9.0 mg/dL 8.0-10.5 N BILIRUBIN TOTAL (test code = BILT) 0.40 mg/dL 0.0-1.0 N SGOT/AST (test code = AST) 23 IUnit/L 15-37 N SGPT/ALT (test code = ALT) 9 IUnit/L 30-65 L ALKALINE PHOSPHATASE TOTAL (test code = ALKP) 221 IUnit/L 20-125 H CBC W/AUTO [id number] 14:56:00* Test Item Value Reference Range Interpretation Comme nts WHITE BLOOD CELL (test code = WBC) 11.2 x10 3/uL 4.5-11.0 H RED BLOOD CELL (test code = RBC) 3.52 x10 6/uL 3.54-5.02 L HEMOGLOBIN (test code = HGB) 10.8 g/dL 11.0-15.0 L HEMATOCRIT (test code = HCT) 31.9 % 33.0-45.0 L MEAN CELL VOLUME (test code = MCV) 90.6 fL 81.0-99.0 N MEAN CELL HGB (test code = MCH) 30.7 pg 27.0-33.0 N MEAN CELL HGB CONCETRATION (test code = MCHC) 33.9 g/dL 33.0-37.0 N RED CELL DISTRIBUTION WIDTH CV (test code = RDW) 13.4 % 11.5-14.5 N RED CELL DISTRIBUTION WIDTH SD (test code = RDW-SD) 43.7 fL 37.0-54.0 N PLATELET COUNT (test code = PLT) 240 x10 3/uL 150-400 N MEAN PLATELET VOLUME (test c ode = MPV) 10.3 fL 7.0-9.0 H NEUTROPHIL % (test code = NT%) 77.1 % 56.0-77.0 H IMMATURE GRANULOCYTE % (test code = IG%) 1.3 % 0.0-2.0 N LYMPHOCYTE % (test code = LY%) 12.6 % 14.0-32.0 L MONOCYTE % (test code = MO%) 8.5 % 4.8-9.0 N EOSINOPHIL % (test code = EO%) 0.3 % 0.3-3.7 N BASOPHIL % (test code = BA%) 0.2 % 0.0-2.0 N NUCLEATED RBC % (test code = NRBC%) 0.0 % 0-0 N NEUTROPHIL # (test code = NT#) 8.60 x10 3/uL 2.0-7.6 H IMMATURE GRANULOCYTE # (test code = IG#) 0.15 x10 3/uL 0.00-0.03 H LYMPHOCYTE # (test code = LY#) 1.40 x10 3/uL 1.0-3.8 N MONOCYTE # (test code = MO#) 0.95 x10 3/uL 0.1-0.8 H EOSINOPHIL # (test code = EO#) 0.03 x10 3/uL 0.0-0.2 N BASOPHIL # (test code = BA#) 0.02 x10 3/uL 0.0-0.2 N NUCLEATED RBC # (test code = NRBC#) 0.00 x10 3/uL 0.0-0.1 N MANUAL DIFF REQUIRED (test c ode = MDIFF) NO CBC W/AUTO [id number] 14:55:00* Test Item Value Reference Range Interpretation Comme nts WHITE BLOOD CELL (test code = WBC) x10 3/uL 4.5-11.0 RED BLOOD CELL (test code = RBC) x10 6/uL 3.54-5.02 HEMOGLOBIN (test code = HGB) g/dL 11.0-15.0 HEMATOCRIT (test code = HCT) % 33.0-45.0 MEAN CELL VOLUME (test code = MCV) fL 81.0-99.0 MEAN CELL HGB (test code = MCH) pg 27.0-33.0 MEAN CELL HGB CONCETRATION ( test code = MCHC) g/dL 33.0-37.0 RED CELL DISTRIBUTION WIDTH CV (test code = RDW) % 11.5-14.5 PLATELET COUNT (test code = PLT) 240 x10 3/uL 150-400 N NEUTROPHIL % (test code = NT%) % 56.0-77.0 LYMPHOCYTE % (test code = LY%) % 14.0-32.0 NEUTROPHIL # (test code = NT#) x10 3/uL 2.0-7.6 LYMPHOCYTE # (test code = LY#) x10 3/uL 1.0-3.8 MANUAL DIFF REQUIRED (test c ode = MDIFF) - US BIOPHYS [id number] 00:00:00 [facility] 2000 Sex: F Name: HILARY PARKINSONMASSIEL Lloyd [facility] : 2000 Age/S: 20 / F [address] Unit #: [id number] Loc: [place] [address] Phys: Julissa Earl DO Acct: [id number] DisDate: Status: REG ER PHONE #: [phone] Exam Date: 11/11/2020 1639 FAX #: [phone] Reason: decreased mvmt at 38 week EXAMS: CPT CODE: [id number] US BIOPHYS PROF [id number] PROCEDURE INFORMATION: Exam: US Biophysical Profile With [...] 10:44 AM FINDINGS: Gestation: A single live intrauterine is identified currently in cephalic position with heart tones of 120 bpm.Fundal grade 3 placenta is seen. Systolic/diastolic ratio [...] Julissa Earl DO Technologist: Jose Alfredo Anderson RDMS(AB) Trnscb Date/Time: 11/11/2020(1713) [id number] Orig Print D/T: S: 11/11/2020 (1713) Probe: PAGE 1 Signed ReportURINALYSIS [id number] 23:00:00* Test Item Value Reference Range Interpretation Comme nts UA COLOR (test code = COLU) YELLOW YEL/STRAW UA APPEARANCE (test code = APPU) SL CLOUDY CLEAR UA GLUCOSE DIPSTICK (test co de = DGLUU) NEGATIVE NEGATIVE UA BILIRUBIN DIPSTICK (test code = BILU) NEGATIVE NEGATIVE UA KETONE DIPSTICK (test cod e = KETU) NEGATIVE NEGATIVE UA SPECIFIC GRAVITY (test co de = SGU) 1.021 1.005-1.030 N UA BLOOD DIPSTICK (test code = HANK) NEGATIVE NEGATIVE UA PH DIPSTICK (test code = EVELYN) 6.0 5.0-7.0 N UA PROTEIN DIPSTICK (test co de = PROU) NEGATIVE NEGATIVE UA UROBILINIOGEN DIPSTICK (test code = URO) 0.2 mg/dL 0.2-1.0 UA NITRITE DIPSTICK (test co de = BIJU) NEGATIVE NEGATIVE UA LEUKOCYTE ESTERASE DIPSTI CK (test code = LEUU) NEGATIVE NEGATIVE UA RBC (test code = RBCU) 0-3 RBC/HPF 0-3 UA WBC NO REFLEX (test code = WBCUCL) 0-3 WBC/HPF 0-3 UA BACTERIA (test code = BACU) NONE SEEN /HPF NONE SEEN UA SQUAMOUS CELLS (test code = SQU) 0-5 /HPF NONE SEEN UA MUCUS (test code = MUCU) TRACE /LPF NONE SEEN AMNISURE (ROM) [id number] 22:56:00* Test Item Value Reference Range Interpretation Comme nts AMNISURE (ROM) TEST (test co de = AMNI) NEGATIVE NEGATIVE COVID 19 Asymptomatic IH [id number] 22:09:00* Test Item Value Reference Range Interpretation Comme nts COVID 19 Asymptomatic IH AG (test code = COVNONPUIAG) Negative Negative A negative resul t is presumptive and should be confirmedwith an FDA authorized molecular assay, if necessary forpatient management.A positive result does not rule out co-infections withother pathogens.This test detects both viable (live) and non-viable,SARS-CoV, and SARS-CoV-2. Test performance depends on theamount of virus (antigen) in the sample.This test has not been FDA cleared or approved; the test hasbeen authorized by FDA under an Emergency Use Authorization(EUA) for use by laboratories certified under the CLIA thatmeet the requirements to perform moderate, high or waivedcomplexity tests. COMMENTS: If not done this admissionFETAL [id number] 02:26:00* Test Item Value Reference Range Interpretation Comme nts FIBRONECTIN (test code = FFN) NEGATIVE NEGATIVE URINALYSIS [id number] 02:07:00* Test Item Value Reference Range Interpretation Comme nts UA COLOR (test code = COLU) YELLOW YEL/STRAW UA APPEARANCE (test code = APPU) CLEAR CLEAR UA GLUCOSE DIPSTICK (test co de = DGLUU) NEGATIVE NEGATIVE UA BILIRUBIN DIPSTICK (test code = BILU) NEGATIVE NEGATIVE UA KETONE DIPSTICK (test cod e = KETU) NEGATIVE NEGATIVE UA SPECIFIC GRAVITY (test co de = SGU) 1.015 1.005-1.030 N UA BLOOD DIPSTICK (test code = HANK) NEGATIVE NEGATIVE UA PH DIPSTICK (test code = EVELYN) 7.0 5.0-7.0 N UA PROTEIN DIPSTICK (test co de = PROU) NEGATIVE NEGATIVE UA UROBILINIOGEN DIPSTICK (t est code = URO) 0.2 mg/dL 0.2-1.0 UA NITRITE DIPSTICK (test co de = BIJU) NEGATIVE NEGATIVE UA LEUKOCYTE ESTERASE DIPSTI CK (test code = LEUU) TRACE NEGATIVE A UA RBC (test code = RBCU) 0-3 RBC/HPF 0-3 UA WBC NO REFLEX (test code = WBCUCL) 0-3 WBC/HPF 0-3 UA BACTERIA (test code = BACU) 1+ /HPF NONE SEEN A UA SQUAMOUS CELLS (test code = SQU) 0-5 /HPF NONE SEEN UA MUCUS (test code = MUCU) TRACE /LPF NONE SEEN BASIC METABOLIC [id number] 13:29:00* Test Item Value Reference Range Interpretation Comme nts SODIUM (test code = NA) 133 mEq/L 134-147 L POTASSIUM (test code = K) 3.7 mEq/L 3.4-5.0 N CHLORIDE (test code = CL) 102 mEq/L 100-108 N CARBON DIOXIDE (test code = CO2) 20 mEq/l 21-33 L ANION GAP (test code = GAP) 14 0-20 N GLUCOSE (test code = GLU) 101 mg/dL 70-110 N BLOOD UREA NITROGEN (test code = BUN) 11 mg/dL 7-18 N GLOMERULAR FILTRATION RATE (test code = GFR) 90.5 110-120 L Units of measure = ml/min/1.73 m2 CREATININE (test code = CREAT) 0.8 mg/dL 0.6-1.3 N CALCIUM (test code = CA) 10.6 mg/dL 8.0-10.5 H Is patient ? YHOW MANY WEEKS? 6 WEEKSHCG [id number] 13:29:00* Test Item Value Reference Range Interpretation Comme nts HCG SERUM (test code = HCG) 84113.8 0 - 6 NOT PREGNA NT > 6 SUGGESTIVE OF EARLY RISES TWO FOLD EVERY 2 DAYS; SUGGEST RECONFIRMING AFTER 2 DAYS. 150,000-200,[address] TRIMESTER 10,000 - 50,000 2ND & 3RD TRIMESTERResults in jonna-International Units/mL Is patient ? YHOW MANY WEEKS? 6 WEEKS- DUP AB/PEL/SC/[id number] 11:46:00[facility] : 2000 Sex: F Name: [facility] 2000 Age/S: 19 / F [address] Unit #: [id number] Loc: [place] [address] Phys: Junito Pantoja MD Acct: [id number] DisDate: Status: REG ER PHONE #: [phone] Exam Date: 03/26/20201136 FAX #: [phone] Reason: see US PREG 1st TRIMTR EXAMS: CPT CODE: [id number] DUP AB/PEL/SC/LTD 79729 PROCEDURE: PELVIC ULTRASOUND INDICATION: 1st trimester with [...] 6 weeks based on gestational sac measurement. RIGH T OVARY: 39 x 21 x 21 mm. Small follicles. Normal blood flow on Doppler. 3.1 cm greatest diameter simple cyst likely corpus luteum. LEFT OVARY: 28 x 18 x 14 mm. Normal blood flow on Doppler. BLADDER: Unremarkable. Comments: No adnexal masses. No free intraperitoneal fluid. IMPRESSION: 1. 6 week live intrauterine with area of subchronic hemorrhage adjacent to the gestational sac. 2. 3.1cm corpus luteum cyst right ovary. SL: [id number] Electronically Signed by Cornel Pitts on03/26/2020 at 1146 Reported and signed by: Rigoberto Pitts M.D. PAGE 1 Signed Report (CONTINUED) Name: [facility] GerardMangham : 2000 Age/S: 19 / F [address] [facility] Unit #: [id number] Loc: [place] [address] Phys: Junito Pantoja MD Acct: [id number] Dis Date: Status: REG ER PHONE #: [phone] Exam Date: 03/26/20201136 FAX #: [phone] Reason: see US PREG 1st TRIMTR EXAMS: CPT CODE: [id number] DUP AB/PEL/SC/LTD 56529 (Continued) CC: Junito Pantoja MDTechnologist: Madai Swenson RDMS(AB) Trnscb Date/Time: 03/26/2020 (1146) [email or web address] Orig Print D/T:S: 03/26/2020 (1149) Probe: PAGE 2 Signed Report- US PREG 1ST [id number] 11:46:00[facility] : 2000 Sex: F Name: [facility] Gerard[facility]ang[facility] : 2000 Age/S: 19 / F [address] [facility] Unit #: [id number] Loc: [place] [address] Phys: Junito Pantoja MD Acct: [id number] DisDate: Status: REG ER PHONE #: [phone] Exam Date: 03/26/2020 113 FAX #: [phone] Reason: Pelvic Pain EXAMS: CPT CODE: [id number] US PREG 1ST TRIMTR 22704 PROCEDURE: PELVIC ULTRASOUND INDICATION: 1st trimester with nausea and vomiting COMPARISON: None. TECHNIQUE: Grayscale, colorand Doppler transabdominal and transvaginal imaging of the pelvis was performed with standard technique. Transvaginal ultrasound is obtained for further evaluation of the endometrium and adnexal regions. FINDINGS: UTERUS: Uterus 12 cm in length. It contains a small intrauterine gestational sac witha yolk sac and a pole. Amniotic fluid is adequate. Curvilinear fluid collection adjacent to the gestational sac suspicious for subchronic hemorrhage measuring 14 x 3 x 5 mm. A heart rateof 103 bpm recorded. The gestational age 6 [...] cm corpus luteum cyst right ovary. SL: [id number] at 1146 Reported and signed by: Rigoberto Pitts M.D. PAGE 1 Signed Report (CONTINUED) Name: SHALOM PARKINSON [facility] : 2000 Age/S: 19 / F [address] [place] [address] Unit #: [id number] Loc: [place] [address] Phys: Junito Pantoja MD Acct: [id number] Dis Date: Status: REGER PHONE #: [phone] Exam Date: 03/26/2020 1137 FAX #: [phone] Reason: Pelvic Pain EXAMS:CPT CODE: [id number] US PREG 1ST TRIMTR 78850 (Continued) CC: Junito Pantoja MD Technologist: Madai Swenson RDMS(AB) Trnscb Date/Time: 03/26/2020 (1146) [email or web address] Orig Print D/T: S: 03/26/2020 (1149) Probe: PAGE 2 Signed Report- US PREG UT [id number] 11:46:00 [facility] FONTENOTName: SHALOM PARKINSON : 2000 Sex: F Name: SHALOM PARKNISON [facility] Moustapha Fontenot : 2000 Age/S: 19 / F [address] [facility] Unit #: [id number] Loc: [place] [address] Phys: Junito Pantoja MD Acct: [id number] Dis Date: Status: REG ER PHONE #: [phone] Exam Date: 03/26/2020 1137 FAX #: [phone] Reason: see US PREG 1st TRIMTR EXAMS: CPT CODE: [id number] US PREG UT TRANSVAGINAL 12711 PROCEDURE: PELVIC ULTRASOUND INDICATION: 1st trimester with nausea and vomiting COMPARISON: None. TECHNIQUE: Grayscale, color and Doppler transabdominal and transvaginal imaging of the pelvis was performed withstandard technique. Transvaginal ultrasound is obtained for further [...] subchronic hemorrhage adjacent to the gestational sac. 2 . 3.1 cm corpus luteum cyst right ovary. SL: [id number] at 1146 Reported and signed by: Rigoberto Pitts M.D. PAGE 1 Signed Report (CONTINUED) Name[facility] : 2000 Age/S: 19 / F [address] [facility] [address] Unit #: [id number] Loc: [place] [address] Phys: Junito Pantoja MD Acct: [id number] Dis Date: Status: REG ER PHONE #: [phone] Exam Date: 03/26/20201136 FAX #: [phone] Reason: see US PREG 1st TRIMTR EXAMS: CPT CODE: [id number] US PREG UT TRANSVAGINAL 14778 (Continued) CC: Oumou Pantoja MD Technologist: Madai Swenson RDMS() Trnscb Date/Time: 03/26/2020 (1146) [email or web address] OrigPrint D/T: S: 03/26/2020 (1149) Probe: [id number] PAGE 2 Signed ReportUA RFLX MICR CULT IF [id number] 11:06:00* Test Item Value Reference Range Interpretation Comme nts UA COLOR (test code = COLU) YELLOW YEL/STRAW UA APPEARANCE (test code = APPU) CLOUDY CLEAR A UA GLUCOSE DIPSTICK (test co de = DGLUU) NEGATIVE NEGATIVE UA BILIRUBIN DIPSTICK (test code = BILU) NEGATIVE NEGATIVE UA KETONE DIPSTICK (test cod e = KETU) 2+ NEGATIVE A UA SPECIFIC GRAVITY (test co de = SGU) 1.031 1.005-1.030 H UA BLOOD DIPSTICK (test code = HANK) 2+ NEGATIVE A UA PH DIPSTICK (test code = EVELYN) 5.0 5.0-7.0 N UA PROTEIN DIPSTICK (test co de = PROU) 2+ NEGATIVE A UA UROBILINIOGEN DIPSTICK (t est code = URO) 2.0 mg/dL 0.2-1.0 A UA NITRITE DIPSTICK (test co de = BIJU) NEGATIVE NEGATIVE UA LEUKOCYTE ESTERASE DIPSTI CK (test code = LEUU) NEGATIVE NEGATIVE UA WBC (test code = WBCU) 21-50 WBC/HPF 0-3 A UA RBC (test code = RBCU) 11-20 RBC/HPF 0-3 UA WBC NO REFLEX (test code = WBCUCL) 21-50 WBC/HPF 0-3 A UA BACTERIA (test code = BACU) 4+ /HPF NONE SEEN A UA SQUAMOUS CELLS (test code = SQU) 6-10 /HPF NONE SEEN A UA MUCUS (test code = MUCU) 4+ /LPF NONE SEEN A Indication for culture: RiskForSepsis-no oth srcSpecimen Description: CLEAN CATCHCBC W/AUTO [id number] 10:50:00* Test Item Value Reference Range Interpretation Comme nts WHITE BLOOD CELL (test code = WBC) 11.0 x10 3/uL 4.5-11.0 N RED BLOOD CELL (test code = RBC) 4.73 x10 6/uL 3.54-5.02 N HEMOGLOBIN (test code = HGB) 14.9 g/dL 11.0-15.0 N HEMATOCRIT (test code = HCT) 43.0 % 33.0-45.0 N MEAN CELL VOLUME (test code = MCV) 90.9 fL 81.0-99.0 N MEAN CELL HGB (test code = MCH) 31.5 pg 27.0-33.0 N MEAN CELL HGB CONCETRATION (test code = MCHC) 34.7 g/dL 33.0-37.0 N RED CELL DISTRIBUTION WIDTH CV (test code = RDW) 12.3 % 11.5-14.5 N RED CELL DISTRIBUTION WIDTH SD (test code = RDW-SD) 41.2 fL 37.0-54.0 N PLATELET COUNT (test code = PLT) 339 x10 3/uL 150-400 N MEAN PLATELET VOLUME (test c ode = MPV) 10.1 fL 7.0-9.0 H NEUTROPHIL % (test code = NT%) 73.0 % 56.0-77.0 N IMMATURE GRANULOCYTE % (test code = IG%) 0.7 % 0.0-2.0 N LYMPHOCYTE % (test code = LY%) 19.0 % 14.0-32.0 N MONOCYTE % (test code = MO%) 6.6 % 4.8-9.0 N EOSINOPHIL % (test code = EO%) 0.3 % 0.3-3.7 N BASOPHIL % (test code = BA%) 0.4 % 0.0-2.0 N NUCLEATED RBC % (test code = NRBC%) 0.0 % 0-0 N NEUTROPHIL # (test code = NT#) 8.02 x10 3/uL 2.0-7.6 H IMMATURE GRANULOCYTE # (test code = IG#) 0.08 x10 3/uL 0.00-0.03 H LYMPHOCYTE # (test code = LY#) 2.09 x10 3/uL 1.0-3.8 N MONOCYTE # (test code = MO#) 0.73 x10 3/uL 0.1-0.8 N EOSINOPHIL # (test code = EO#) 0.03 x10 3/uL 0.0-0.2 N BASOPHIL # (test code = BA#) 0.04 x10 3/uL 0.0-0.2 N NUCLEATED RBC # (test code = NRBC#) 0.00 x10 3/uL 0.0-0.1 N MANUAL DIFF REQUIRED (test c ode = MDIFF) NO CBC W/AUTO [id number] 10:42:00* Test Item Value Reference Range Interpretation Comme nts WHITE BLOOD CELL (test code = WBC) x10 3/uL 4.5-11.0 RED BLOOD CELL (test code = RBC) x10 6/uL 3.54-5.02 HEMOGLOBIN (test code = HGB) 14.9 g/dL 11.0-15.0 N HEMATOCRIT (test code = HCT) 43.0 % 33.0-45.0 N MEAN CELL VOLUME (test code = MCV) fL 81.0-99.0 MEAN CELL HGB (test code = MCH) pg 27.0-33.0 MEAN CELL HGB CONCETRATION ( test code = MCHC) g/dL 33.0-37.0 RED CELL DISTRIBUTION WIDTH CV (test code = RDW) % 11.5-14.5 PLATELET COUNT (test code = PLT) 339 x10 3/uL 150-400 N NEUTROPHIL % (test code = NT%) % 56.0-77.0 LYMPHOCYTE % (test code = LY%) % 14.0-32.0 NEUTROPHIL # (test code = NT#) x10 3/uL 2.0-7.6 LYMPHOCYTE # (test code = LY#) x10 3/uL 1.0-3.8 MANUAL DIFF REQUIRED (test c ode = MDIFF) CHLAMYDIA GC DNA BY [id number] 14:08:00* Test Item Value Reference Range Interpretation Comme nts C. TRACHOMATIS DNA BY PCR (test code = CHLAMTDNA) Negative Negative N. GONORRHOEAE DNA BY PCR (test code = NGONORDNA) Negative Negative Performed At: [facility] [place], [place] [id number] mateo Prabhakar MD Ph:[phone] - DUP AB/PEL/SC/[id number] 01:23:00Name: IGGYSHALOM [facility]RO[facility]ER [facility] [place] : 2000 Age/S: 18 / F [address] [place] [address] Unit #: [id number] Loc: [place] [address] Phys: YayoCasper DO Acct: [id number] Dis Date: Statu s: REG ER PHONE #: [phone] Exam Date: 12/28/2018 010 FAX #: [phone] Reason: SEE PELVIC EXAMS: CPT CODE: [id number] DUP AB/PEL/SC/LTD 97622 EXAM: US, US PELVIS COMPLETE: 12/27/2018, 2352 [...] and ovaries are not visualized necessitating endovaginal pel randi ultrasound. Endovaginal pelvic ultrasound shows uterus to be retroverted. Uterus measures 6.7 x4.5 x 3.5 cm. The endometrial stripe is [...] right adnexal complex cyst. 3. Trace fluid inthe endometrial canal. Endometrial stripe thickness is 8.9 mm. 4. Trace free fluid in the cul-de-sac SL:MANDIE PAGE 1 Signed Report (CONTINUED) Name: SHALOM PARKINSON [facility] : 2000 Age/S: 18 / F [address] [place] [address] Bl Unit #: [id number] Loc: [place] [address] Phys: Casper Zee DO Acct: [id number] Dis Date: Status: REG ER PHONE #: [phone] Exam Date: 12/28/2018 0101 FAX #: [phone] Reason: SEE PELVIC EXAMS: CPT CODE: [id number] DUP AB/PEL/SC/LTD 82389 (Continued) at 0123 Reported and signed by:Roger Rose M.D. CC: Casper Zee DO Technologist: Marta Ca RDMS(Brenda)(OB) Trnscb Date/Time: 12/28/2018 (0123) [email or web address] Orig Print D/T: S: 12/28/2018 (0126) Probe: PAGE 2 Signed Report- US TRANSVAGINAL NON [id number] 01:23:00Name: [facility] [place] : 2000 Age/S: 18 / F [address] [place] [address] Unit #: [id number] Loc: [place] [address] Phys: Casper Zee DO Acct: [id number] Dis Date: Status: REG ER PHONE #: [phone] Exam Date: 12/28/2018 010 FAX #: [phone] Reason: CRAMPING EXAMS: CPT CODE: [id number] [place] [id number] EXAM: US, US PELVIS COMPLETE: 12/27/2018, 2352 [...] shows uterus to be retroverted. Uterus measures 6.7x 4.5 x 3.5 cm. The endometrial stripe is 8.9 mm in thickness. Trace fluid seen in the endometrial canal. Right ovary: 3.5 x 2.0 x 2.1 cm Left ovary: 3.8 x 1.6 x 1.5 cm A 2.5 x 3.1 x 2.5 cm cyst withdebris seen in the right neck subjacent to [...] cm right adnexal complex cyst. 3. Trace fluidin the endometrial canal. Endometrial stripe thickness is 8.9 mm. 4. Trace free fluid in the cul-de-sac SL:JSYED-H PAGE 1 Signed Report (CONTINUED) Name: SHALOM PARKINSON : 2000 Age/S: 18 / F [address] [place] [address] Unit #: [id number] Loc: [place] [address] Phys: Casper Zee DO Acct: [id number] Dis Date: Status: REG ER PHONE #: [phone] Exam Date: 12/28/201899 FAX #: [phone] Reason: CRAMPING EXAMS: CPT CODE: [id number] [place] [id number] (Continued) at 0123 Reported and signed by: Roger Rose M.D. CC: Casper Zee DO Technologist: CURT Price)(OB) Trnscb Date/Time: 12/28/2018 (0123) [email or web address] Orig Print D/T: S: 12/28/2018 (0126) Probe: [id number] PAGE 2 Signed Report- US PELVIS [id number] 01:23:00Name: SHALOM PARKINSON : 2000 Age/S: 18 / F [address] [place] [address] Unit #: [id number] Loc: [place] [address] Phys: Casper Zee DO Acct: [id number] Dis Date: Status: REG ER PHONE #: [phone] Exam Date: 12/28/201899 FAX #: [phone] Reason: pelvic pain EXAMS: CPT CODE: [id number] US PELVIS COMPLETE [id number] EXAM: US, US PELVIS COMPLETE: 12/27/2018, 2352 [...] Endometrium and ovaries are not visualized necessitating endovaginalpelvic ultrasound. Endovaginal pelvic ultrasound shows uterus to be retroverted. Uterus measures 6.7 x 4.5 x 3.5 cm. The endometrial stripe is 8.9 mm in thickness. Trace fluid seen in the endometrialcanal. Right ovary: 3.5 x 2.0 x 2.1 [...] cm right adnexal complex cyst. 3. Trace fluidin the endometrial canal. Endometrial stripe thickness is 8.9 mm. 4. Trace free fluid in the cul-de-sac SL:JSYED-H PAGE 1 Signed Report (CONTINUED) Name: HILARY PARKINSONNDRA Prema [facility] : 2000 Age/S: 18 / F [address] [place] [address] Unit #: [id number] Loc: [place] [address] Phys: Casper Zee DO Acct: [id number] Dis Date: Status: REG ER PHONE #: [phone] Exam Date: 12/28/2018 0100 FAX #: [phone] Reason: pelvic pain EXAMS: CPT CODE: [id number] US PELVIS COMPLETE [id number] (Continued) at 0123 Reported and signed by: Roger Rose M.D. CC: Casper Zee DO Technologist: Marta Ca RDMS(A)(OB) Trnscb Date/Time: 12/28/2018 (0123) [email or web address] Orig Print D/T: S: 12/28/2018 (0126) Probe: PAGE 2 Signed ReportUA RFLX MICR CULT IF [id number] 00:05:00* Test Item Value Reference Range Interpretation Comme nts UA COLOR (test code = COLU) YELLOW YEL/STRAW UA APPEARANCE (test code = APPU) SL CLOUDY CLEAR UA GLUCOSE DIPSTICK (test co de = DGLUU) NEGATIVE NEGATIVE UA BILIRUBIN DIPSTICK (test code = BILU) NEGATIVE NEGATIVE UA KETONE DIPSTICK (test cod e = KETU) NEGATIVE NEGATIVE UA SPECIFIC GRAVITY (test co de = SGU) 1.016 1.005-1.030 N UA BLOOD DIPSTICK (test code = HANK) 2+ NEGATIVE A UA PH DIPSTICK (test code = EVLEYN) 6.0 5.0-7.0 N UA PROTEIN DIPSTICK (test co de = PROU) NEGATIVE NEGATIVE UA UROBILINIOGEN DIPSTICK (t est code = URO) 0.2 mg/dL 0.2-1.0 UA NITRITE DIPSTICK (test co de = BIJU) NEGATIVE NEGATIVE UA LEUKOCYTE ESTERASE DIPSTI CK (test code = LEUU) NEGATIVE NEGATIVE UA WBC (test code = WBCU) 0-3 WBC/HPF 0-3 UA RBC (test code = RBCU) 4-10 RBC/HPF 0-3 UA WBC NO REFLEX (test code = WBCUCL) 0-3 WBC/HPF 0-3 UA BACTERIA (test code = BACU) TRACE /HPF NONE SEEN UA SQUAMOUS CELLS (test code = SQU) 6-10 /HPF NONE SEEN A UA MUCUS (test code = MUCU) TRACE /LPF NONE SEEN Indication for culture: Suprapubic PainSpecimen Description: CLEAN CATCHHCG SERUM [id number] 23:59:00* Test Item Value Reference Range Interpretation Comme nts HCG SERUM QUAL (test code = HCGQL) SERUM NEGATIVE NEGATIVE CBC W/AUTO [id number] 23:52:00* Test Item Value Reference Range Interpretation Comme nts WHITE BLOOD CELL (test code = WBC) 12.38 x10 3/uL 4.5-11.0 H RED BLOOD CELL (test code = RBC) 4.55 x10 6/uL 3.54-5.02 N HEMOGLOBIN (test code = HGB) 13.9 g/dL 11.0-15.0 N HEMATOCRIT (test code = HCT) 42.2 % 33.0-45.0 N MEAN CELL VOLUME (test code = MCV) 92.7 fL 81.0-99.0 N MEAN CELL HGB (test code = MCH) 30.5 pg 27.0-33.0 N MEAN CELL HGB CONCETRATION (test code = MCHC) 32.9 g/dL 33.0-37.0 L RED CELL DISTRIBUTION WIDTH CV (test code = RDW) 12.7 % 11.5-14.5 N RED CELL DISTRIBUTION WIDTH SD (test code = RDW-SD) 43.8 fL 37.0-54.0 N PLATELET COUNT (test code = PLT) 358 x10 3/uL 150-400 N MEAN PLATELET VOLUME (test code = MPV) 10.8 fL 7.0-9.0 H NEUTROPHIL % (test code = NT%) 59.5 % 56.0-77.0 N IMMATURE GRANULOCYTE % (test code = IG%) 0.5 % 0.0-2.0 N LYMPHOCYTE % (test code = LY%) 32.1 % 14.0-32.0 H MONOCYTE % (test code = MO%) 6.8 % 4.8-9.0 N EOSINOPHIL % (test code = EO%) 0.7 % 0.3-3.7 N BASOPHIL % (test code = BA%) 0.4 % 0.0-2.0 N NUCLEATED RBC % (test code = NRBC%) 0.0 % 0-0 N NEUTROPHIL # (test code = NT#) 7.36 x10 3/uL 2.0-7.6 N IMMATURE GRANULOCYTE # (test code = IG#) 0.06 x10 3/uL 0.00-0.03 H LYMPHOCYTE # (test code = LY#) 3.98 x10 3/uL 1.0-3.8 H MONOCYTE # (test code = MO#) 0.84 x10 3/uL 0.1-0.8 H EOSINOPHIL # (test code = EO#) 0.09 x10 3/uL 0.0-0.2 N BASOPHIL # (test code = BA#) 0.05 x10 3/uL 0.0-0.2 N NUCLEATED RBC # (test code = NRBC#) 0.00 x10 3/uL 0.0-0.1 N MANUAL DIFF REQUIRED (test code = MDIFF) NO CHEMISTRY 8 [id number] 23:45:00* Test Item Value Reference Range Interpretation Comme nts ISTAT-SODIUM (test code = NAP) MMOL/L 134-147 ISTAT-POTASSIUM (test code = KP) MMOL/L 3.4-5.0 ISTAT-CHLORIDE (test code = CLP) MMOL/L 100-108 ISTAT CARBON DIOXIDE (test c ode = ISTAT-CO2) mmol/L 21-33 N ISTAT CALCIUM IONIZED (test code = ISTAT-KARON) MG/DL 1.12-1.32 ISTAT-GLUCOSE (test code = GLUP) MG/DL 70-110 H ISTAT-BUN (test code = BUNP) MG/DL 7-18 N BEDSIDE CREATININE (test cod e = CREATBED) MG/DL 0.6-1.3 N GLOMERULAR FILTRATION RATE P OC (test code = GFRBED) 97 ML/MIN CHEMISTRY 8 [id number] 23:45:00* Test Item Value Reference Range Interpretation Comme nts ISTAT-SODIUM (test code = NAP) 140 MMOL/L 134-147 N ISTAT-POTASSIUM (test code = KP) 3.4 MMOL/L 3.4-5.0 N ISTAT-CHLORIDE (test code = CLP) 101 MMOL/L 100-108 N Performed by certified ripper operator at [facility] ISTAT CARBON DIOXIDE (test code = ISTAT-CO2) 26.0 mmol/L 21-33 N ISTAT CALCIUM IONIZED (test code = ISTAT-KARON) 1.22 MG/DL 1.12-1.32 N ISTAT-GLUCOSE (test code = GLUP) 111 MG/DL 70-110 H ISTAT-BUN (test code = BUNP) 10 MG/DL 7-18 N BEDSIDE CREATININE (test code = CREATBED) 0.8 MG/DL 0.6-1.3 N GLOMERULAR FILTRATION RATE POC (test code = GFRBED) 97 ML/MIN URINALYSIS [id number] 13:24:00* Test Item Value Reference Range Interpretation Comme nts UA COLOR (test code = COLU) YELLOW YEL/STRAW UA APPEARANCE (test code = APPU) CLEAR CLEAR UA GLUCOSE DIPSTICK (test co de = DGLUU) NEGATIVE NEGATIVE UA BILIRUBIN DIPSTICK (test code = BILU) NEGATIVE NEGATIVE UA KETONE DIPSTICK (test cod e = KETU) NEGATIVE NEGATIVE UA SPECIFIC GRAVITY (test co de = SGU) 1.011 1.005-1.030 N UA BLOOD DIPSTICK (test code = HANK) NEGATIVE NEGATIVE UA PH DIPSTICK (test code = EVELYN) 6.0 5.0-7.0 N UA PROTEIN DIPSTICK (test co de = PROU) NEGATIVE NEGATIVE UA UROBILINIOGEN DIPSTICK (t est code = URO) 0.2 mg/dL 0.2-1.0 UA NITRITE DIPSTICK (test co de = BIJU) NEGATIVE NEGATIVE UA LEUKOCYTE ESTERASE DIPSTI CK (test code = LEUU) 3+ NEGATIVE A UA WBC (test code = WBCU) >50 WBC/HPF 0-3 A UA RBC (test code = RBCU) 11-20 RBC/HPF 0-3 UA BACTERIA (test code = BACU) 2+ /HPF NONE SEEN A UA SQUAMOUS CELLS (test code = SQU) 0-5 /HPF NONE SEEN UA MUCUS (test code = MUCU) TRACE /LPF NONE SEEN UR HCG [id number] 13:22:00* Test Item Value Reference Range Interpretation Comme nts UR HCG QUAL (test code = HCGQLU) NEGATIVE NEGATIVE
[2024-05-25] MEDS ORDERED: ONDANSETRON 4 MG (ODT) TAB ONE (19:30)
[2024-05-25 20:05] LABS: SARS-CoV-2 Antigen CONTROL BLUE LINE VIS/BG OK; SARS-CoV-2 Antigen Rapid Res Negative (Negative)
--- NOTE | 2024-05-25 22:01 | ER ---
Nurse's Notes [facility] Name: Ashley Este[facility] Age: 24 yrs Sex: Female : 2000 Arrival Date: 05/25/2024 Time: 19:10 Bed IW1 Private MD: Diagnosis: Nausea with vomiting, unspecified;Acute upper respiratory infection, unspecified Presentation: 05/25 19:30 Chief complaint: Patient states: Vomiting, diarrhea, cough, chills onset 2 days ago. cm10 Coronavirus screen: Client denies travel out of the [place] in the last 14 days. Ebola Screen: Patient denies travel to an Ebola-affected area in the 21 days before illness onset. Initial Sepsis Screen: Does the patient meet any 2 criteria? HR > 90 bpm. Does the patient have a suspected source of infection? No. Patient's initial sepsis screen is negative. Risk Assessment: Do you want to hurt yourself or someone else? Patient reports no desire to harm self or others. Onset of symptoms was May 25, 2024. 19:30 Method Of Arrival: Ambulatory 10 19:30 Acuity: IAN 4 cm10 Triage Assessment: 19:32 General: Appears in no apparent distress. comfortable, Behavior is calm, cooperative. cm10 Neuro: No deficits noted. Level of Consciousness is awake, alert, obeys commands, Oriented to person, place, time, situation, Appropriate for age. Respiratory: No deficits noted. Airway is patent Respiratory effort is even, unlabored, Respiratory pattern is regular, symmetrical. Historical: - Allergies: 19:31 No Known Allergies; cm10 - PMHx: 19:31 Ovarian cysts; pneumonia/pleurisy; cm10 - PSHx: 19:31 ovarian cyst drainage; cm10 - Immunization history:: Adult Immunizations up to date. - Infectious Disease History:: Denies. - Social history:: Smoking status: Reported history of juuling and/or vaping. Patient uses street drugs, marijuana. Assessment: 19:50 General: pt called from lobby. no response. provider notified. . lg3 20:17 General: pt called from lobby. no response. provider notified. lg3 20:58 General: pt called from lobby. no response. provider notified. lg3 Vital Signs: 19:30 BP 119 / 87; Pulse 111; Resp 19; Temp 98.9(O); Pulse Ox 100% on R/A; Weight 43.09 kg; cm10 Height 5 ft. 0 in. ; Pain 8/10; 19:30 Body Mass Index 18.55 (43.09 kg, 152.4 cm) cm10 19:30 Pain Scale: Adult cm10 ED Course: 19:13 Patient arrived in ED. gm2 19:17 [facility]avitt [facility]C [facility] kb 19:17 Omid Huizar MD is Attending Physician. kb 19:31 Triage completed. cm10 19:32 Arm band placed on right wrist. Patient placed in waiting room. cm10 19:36 SARS RAPID Sent. cm10 19:36 Strep Sent. cm10 19:36 Flu Sent. cm10 19:36 COVID swab sent to lab. Flu and/or RSV swab sent to lab. Strep swab sent to lab. cm10 22:13 No provider procedures requiring assistance completed. Patient did not have IV access lg3 during this emergency room visit. Administered Medications: 19:36 Drug: Ondansetron PO 4 mg PO once Route: PO; cm10 22:12 Follow up: Response: No adverse reaction lg3 Outcome: 22:26 Eloped from waiting room, after seeing physician Time discovered patient gone: May lg2024 at 21:50 22:26 Condition: stable 22:27 Patient left the ED. lg3 Signatures: Alicia Leavitt FNP-C FNP-Ckb Able, Lacie, RN RN lg3 Soledad Lipscomb RN RN cm10 Miladis Spears gm2 Corrections: (The following items were deleted from the chart) 22:10 21:40 General: pt called from lobby. no response. provider notified. . lg3 lg3
--- NOTE | 2024-05-25 22:01 | EDPHYS ---
Physician Documentation [facility] Name: Ashley Estevez Age: 24 yrs Sex: Female : 2000 Arrival Date: 05/25/2024 Time: 19:10 Bed IW1 Private MD: ED Physician Omid Huizar HPI: 05/25 22:08 This 24 yrs old Female presents to ER via Ambulatory with complaints of kb Nausea/Vomiting/Diarrhea, Flu Symptoms. 22:08 Pt is a 24 year old female who presents for vomiting, diarrhea, cough, chills that kb started 2 days ago. Denies abd pain, fever. . Historical: - Allergies: 19:31 No Known Allergies; cm10 - PMHx: 19:31 Ovarian cysts; pneumonia/pleurisy; cm10 - PSHx: 19:31 ovarian cyst drainage; cm10 - Immunization history:: Adult Immunizations up to date. - Infectious Disease History:: Denies. - Social history:: Smoking status: Reported history of juuling and/or vaping. Patient uses street drugs, marijuana. ROS: 22:08 Constitutional: As per HPI kb Exam: 22:08 Constitutional: This is a well developed, well nourished patient who is awake, alert, kb and in no acute distress. Head/Face: Normocephalic, atraumatic. ENT: Moist Mucous membranes Cardiovascular: Regular rate Respiratory: Respirations even and unlabored. No increased work of breathing. Talking in full sentences Abdomen/GI: Soft, non-tender. No distention Back: No spinal tenderness. No costovertebral tenderness. Full range of motion. Skin: Warm, dry with normal turgor. Normal color. MS/ Extremity: Pulses equal, no cyanosis. Neurovascular intact. Full, normal range of motion. Neuro: Awake and alert, GCS 15, oriented to person, place, time, and situation. Vital Signs: 19:30 BP 119 / 87; Pulse 111; Resp 19; Temp 98.9(O); Pulse Ox 100% on R/A; Weight 43.09 kg; cm10 Height 5 ft. 0 in. ; Pain 8/10; 19:30 Body Mass Index 18.55 (43.09 kg, 152.4 cm) cm10 19:30 Pain Scale: Adult cm10 MDM: 19:17 Medical Screening Exam initiated kb 22:09 Differential diagnosis: viral gastroenteritis, flu, covid, strep. Data reviewed: vital kb signs, nurses notes. ED course: Pt elected to leave prior to completion of medical screening exam without informing staff. . 05/25 19:30 Order name: Flu; Complete Time: 20:12 cm10 05/25 19:30 Order name: SARS RAPID; Complete Time: 20:12 cm10 05/25 19:30 Order name: Strep; Complete Time: 20:12 cm10 05/25 20:08 Order name: Throat Culture [facility] 05/25 21:20 Order name: IV Start cm10 Administered Medications: 19:36 Drug: Ondansetron PO 4 mg PO once Route: PO; 10 22:12 Follow up: Response: No adverse reaction lg3 Disposition Summary: 05/25/24 22:00 Eloped Notes: Disposition: after being seen by provider kb Reason: wait time kb Condition: Stable kb Diagnosis - Nausea with vomiting, unspecified kb - Acute upper respiratory infection, unspecified kb Followup: kb - With: Emergency Department - When: As needed - Reason: Worsening of condition Followup: kb - With: Private Physician - When: 2 - 3 days - Reason: Recheck today's complaints, Continuance of care, Re-evaluation by your physician Signatures: Dispatcher [employer] EDAlicia Aparicio FNP-C FNP-Soledad Mccoy RN RN cm10 Martine Raya RN lg3 Corrections: (The following items were deleted from the chart) 22:08 22:06 Constitutional: As per HPI ENT: Negative for injury, pain, and discharge, kb Cardiovascular: Negative for chest pain, palpitations, and edema, Respiratory: Negative for shortness of breath, cough, wheezing, and pleuritic chest pain, Abdomen/GI: Negative for abdominal pain, nausea, vomiting, diarrhea, and constipation, Back: Negative for injury and pain, MS/Extremity: Negative for injury and deformity, Skin: Negative for injury, rash, and discoloration, Neuro: Negative for headache, weakness, numbness, tingling, and seizure, kb
[2024-05-25 22:38] VITALS: BP 119/87; TEMP 98.9; O2SAT 100
== END 2024-05-25 22:27 | disposition left against medical advice (07) ==
LOC: ER 19:10
DX: J06.9 Acute upper respiratory infection, unspecified (principal)
CPT/HCPCS: 36415; 85025; 87070; 87081; 87804; 87811; Q0162

== ENCOUNTER 2025-01-17 16:32 | Emergency (ER) | payer OTHER ==
--- OUTSIDE RECORDS SUMMARY | 2025-01-17 16:38 | XMS REPORT | Continuity of Care Document ---
Author Name Unknown Address [address] [facility] [address] [place] [address] [facility] Address [address] [facility] 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 Name Role Phone PCP, PATIENT DOES NOT HAVE A Primary Care Physic oseas Unavailable Nilton Gastelum Attending Clinician Unavailable Malcom Garsia Attending Clinician Unavailable HOLDEN VALENCIA Attending Clinician Unavail able HOLDEN VALENCIA Attending Clinician Unavail able Holden Valencia MD Attending Clinician CHARY SANTANA Attending Clinician Unavailable Chary Santana MD Attending Clinician [phone] Unknown, Attending Attending Clinician Unavailab JOHNY Pimentel Attending Clinician Elmer Gama Attending Clinician Taisha Lebron Attending Clinician Julissa Wei Attending Clinician Elmer Shah Admitting Clinician Lavell soriano Payers Payer Name Policy Type Policy Number Effective Date Expirati on Date Source [facility] [id number] 2023 00:00:00 Allergies, Adverse Reactions, Alerts Allergy Name Allergy Type Status Severity Reaction(s) Onset Date Inactive Date Treating Clinician Comments Source No Known Allergie s DA Active U 3-13 00:00: 00 [facility] No Known Allergie s DA Active U 11-11 00:00: 00 [facility] No Known Allergie s DA Active U 11-11 00:00: 00 [facility] No Known Allergie s DA Active U 10-24 00:00: 00 [facility] No Known Allergie s DA Active U 10-24 00:00: 00 [facility] No Known Allergie s DA Active U 2019-04 00:00: 00 [facility] No Known Allergie s DA Active U 2019-04 00:00: 00 [facility] No Known Allergie s DA Active U 05-24 00:00: 00 [facility] No Known Allergie s DA Active U 05-24 00:00: 00 [facility] NO KNOWN ALLERGIE S Drug Class Active General acute hospital Social History Social Habit Start Date Stop Date Quantity Comments Source Sexual orientation U [facility] Sex assigned at 2000 00:00:00 2000 00:00:00 [facility] Smoking Status Start Date Stop Date Source Tobacco smoking consumption unknown [facility] Medications Ordered Medication Name Filled Medication Name Start Date Stop Date Current Medication? Ordering Clinician Indication Dosage Frequency Signature (SIG) Comments Components Source metoclopram gloria HCl (REGLAN) tablet 10 mg 05-26 22:30: 00 05-26 22:21 :00 No 10mg 10 mg, Oral, ONCE NOW, 1 dose, On Alisa 05/26/24 at 1630, Routine General acute hospital ondansetron 4 mg disintegrat ing tablet 05-26 00:00: 00 Yes [id number] 4mg Take 1 tablet by mouth every 8 (eight) hours as needed for Nausea and Vomiting (N/V). General acute hospital benzonatate 100 mg capsule 05-26 00:00: 00 Yes [id number] 100mg Take 1 capsule by mouth 3 (three) times daily as needed for Cough. General acute hospital polymyxin B sulf-trimet hoprim 10,000 unit- 1 mg/mL ophthalmic drops 2022-04 00:00: 00 04-14 05:59 :00 No [id number] 1[drp] Place 1 Drop in both eyes 4 (four) times daily for 7 days. General acute hospital Vital Signs Vital Name Observation Time Observation Value Comments S ource Systolic blood pressure 2024-05-26 21:10:00 113 mm[Hg] [facility] Diastolic blood pressure 2024-05-26 21:10:00 75 mm[Hg] [facility] Heart rate 2024-05-26 21:10:00 95 /min [facility] Body temperature 2024-05-26 21:10:00 37.11 Kenyatta [facility] Respiratory rate 2024-05-26 21:10:00 15 /min [facility] Body height 2024-05-26 21:10:00 152.4 cm [facility] Body weight 2024-05-26 21:10:00 44.453 kg [facility] BMI 2024-05-26 21:10:00 19.14 kg/m2 [facility] Oxygen saturation in Arterial blood by Pulse oximetry 2024-05-26 21:10:00 99 /min [facility] Systolic blood pressure 2023-04-06 20:04:00 106 mm[Hg] [facility] Diastolic blood pressure 2023-04-06 20:04:00 71 mm[Hg] [facility] Heart rate 2023-04-06 20:04:00 82 /min [facility] Body temperature 2023-04-06 20:04:00 36.94 Kenyatta [facility] Respiratory rate 2023-04-06 20:04:00 20 /min [facility] Body height 2023-04-06 20:04:00 152.4 cm [facility] Body weight 2023-04-06 20:04:00 43.954 kg [facility] BMI 2023-04-06 20:04:00 18.92 kg/m2 [facility] Oxygen saturation in Arterial blood by Pulse oximetry 2023-04-06 20:04:00 99 /min [facility] Procedures Procedure Date / Time Performed Performing Clinicia n Source POCT TEST 2024-05-26 22:20:00 Holden Valencia [facility] RAPID STREP SCREEN FOR GROUP A 2024-05-26 22:15:00 Holden Valencia [facility] INFLUENZA A/B RSV COVID NAAT 2024-05-26 22:15:00 Holden Valencia [facility] [id number] 2020-11-12 00:00:00 [facility] [id number] 2020-11-12 00:00:00 [facility] [id number] 2020-11-12 00:00:00 [facility] [id number] 2020-11-12 00:00:00 [facility] [id number] 2020-11-11 00:00:00 [facility] [id number] 2020-11-11 00:00:00 [facility] [id number] 2020-11-11 00:00:00 [facility] [id number] 2020-11-11 00:00:00 [facility] Encounters Start Date/Time End Date/Time Encounter Type Admission Type Attending Clinicians Care Facility Care Department Encounter ID Source 2020-04-23 17:49:00 Inpatient [facility]L ANKUL [id number] [facility] 2020-03-26 10:03:00 Inpatient [facility] NAKUL [id number] [facility] 2024-07-18 13:48:00 2024-07-18 19:08:00 Emergency EM Nilton Gastelum [facility] NAKUL [id number] [facility] 2024-06-30 12:00:00 2024-06-30 16:22:00 Emergency EM Malcom Garsia [facility] NAKUL [id number] [facility] 2024-05-26 15:18:00 2024-05-26 18:12:00 Emergency X HOLDEN VALENCIA [facility] ERT [id number] General acute hospital 2024-05-26 15:18:00 2024-05-26 18:12:00 Emergency Holden Valencia [facility] [id number] General acute hospital 2023-04-06 13:10:00 2023-04-06 14:42:36 Outpatient R CHARY SANTANA [facility] [id number] General acute hospital 2023-04-06 13:10:00 2023-04-06 13:30:00 Urgent Care Chary Santana Unknown, Attending [facility] [id number] General acute hospital 2021-10-25 15:39:00 2021-10-25 20:30:00 Emergency E JOHNY MIN TW TW 7500 TW 2020-11-11 17:33:00 2020-11-14 15:33:00 Inpatient EM Elmer Zapien [facility] OBPP [id number] [facility] 2020-11-11 17:33:00 2020-11-14 15:33:00 Inpatient EM Elmer Zapien [facility] OBPP [id number] [facility] 2020-11-10 11:53:00 2020-11-10 13:57:00 Emergency EM Nilton Gastelum [facility] NAKUL [id number] [facility] 2020-11-06 18:17:00 2020-11-06 19:55:00 Emergency EM Taisha Edouard [facility] DANYELL [id number] [facility] 2020-10-24 21:18:00 2020-10-24 23:21:00 Emergency EM Julissa Earl [facility] DANYELL [id number] [facility] 2020-09-27 14:49:00 2020-09-28 17:28:00 Inpatient EM Elmer Zapien [facility] OBANTE [id number] [facility] Results Test Description Test Time Test Comments Results Result Co mments Source Indication for culture: RiskForSepsis-no oth srcSpecimen Description: CLEAN CATCHHCG SERUM [id number] 16:34:00* Test Item Value Reference Range Interpretation Comme nts HCG SERUM QUAL (test code = HCGQL) SERUM NEGATIVE NEGATIVE BASIC METABOLIC [id number] 16:32:00* Test Item Value Reference Range Interpretation Comme nts SODIUM (test code = NA) 140 mEq/L 134-147 N POTASSIUM (test code = K) 3.7 mEq/L 3.4-5.0 N CHLORIDE (test code = CL) 109 mEq/L 100-108 H CARBON DIOXIDE (test code = CO2) 24 mEq/l 21-33 N ANION GAP (test code = GAP) 11 0-20 N GLUCOSE (test code = GLU) 104 mg/dL 77-141 N BLOOD UREA NITROGEN (test code = BUN) 9 mg/dL 7-25 N GLOMERULAR FILTRATION RATE (test code = GFR) 79.7 110-120 L The Glomerular Filtration Rate is a calculated parameterbased on serum Creatinine, patient age and sex. GFR valuesless than 60 mL/min/1.73 square meters are indicative ofChronic Kidney Disease. Values less than 15 mL/min/1.73square meters indicate Kidney failure. The calculation forGFR is based on the CKD-EPI (2020) calculation. This formulais race indifferent and is the recommended formula for GFRby the National Kidney Foundation for Adults.The GFR will not calculate if the sex is unknown or if thepatient's age is <18 years. CREATININE (test code = CREAT) 1.0 mg/dL 0.6-1.3 N CALCIUM (test code = CA) 10.1 mg/dL 8.0-10.5 N HEPATIC FUNCTION [id number] 16:32:00* Test Item Value Reference Range Interpretation Comme nts TOTAL PROTEIN (test code = PROT) 8.2 g/dL 5.7-8.2 N Note change in REFERENCE RANGE due to change in REAGENT. ALBUMIN (test code = ALB) 4.80 g/dL 3.4-5.0 N BILIRUBIN TOTAL (test code = BILT) 0.70 mg/dL 0.0-1.0 N BILIRUBIN DIRECT (test code = BILD) 0.20 MG/DL 0.1-0.3 N BILIRUBIN INDIRECT (test code = BILIND) 0.50 MG/DL SGOT/AST (test code = AST) 19 IUnit/L 8-34 N SGPT/ALT (test code = ALT) < 7 IUnit/L 10-49 L ALKALINE PHOSPHATASE TOTAL (test code = ALKP) 68 IUnit/L 20-125 N CBC W/AUTO [id number] 16:21:00* Test Item Value Reference Range Interpretation Comme nts WHITE BLOOD CELL (test code = WBC) 9.5 x10 3/uL 4.5-11.0 N RED BLOOD CELL (test code = RBC) 4.69 x10 6/uL 3.54-5.02 N HEMOGLOBIN (test code = HGB) 14.1 g/dL 11.0-15.0 N HEMATOCRIT (test code = HCT) 42.3 % 33.0-45.0 N MEAN CELL VOLUME (test code = MCV) 90.2 fL 81.0-99.0 N MEAN CELL HGB (test code = MCH) 30.1 pg 27.0-33.0 N MEAN CELL HGB CONCETRATION (test code = MCHC) 33.3 g/dL 33.0-37.0 N RED CELL DISTRIBUTION WIDTH CV (test code = RDW) 12.7 % 11.5-14.5 N RED CELL DISTRIBUTION WIDTH SD (test code = RDW-SD) 41.6 fL 37.0-54.0 N PLATELET COUNT (test code = PLT) 367 x10 3/uL 150-400 N MEAN PLATELET VOLUME (test c ode = MPV) 10.5 fL 7.0-9.0 H NEUTROPHIL % (test code = NT%) 72.7 % 56.0-77.0 N IMMATURE GRANULOCYTE % (test code = IG%) 0.5 % 0.0-2.0 N LYMPHOCYTE % (test code = LY%) 22.3 % 14.0-32.0 N MONOCYTE % (test code = MO%) 3.9 % 4.8-9.0 L EOSINOPHIL % (test code = EO%) 0.3 % 0.3-3.7 N BASOPHIL % (test code = BA%) 0.3 % 0.0-2.0 N NUCLEATED RBC % (test code = NRBC%) 0.0 % 0-0 N NEUTROPHIL # (test code = NT#) 6.91 x10 3/uL 2.0-7.6 N IMMATURE GRANULOCYTE # (test code = IG#) 0.05 x10 3/uL 0.00-0.03 H LYMPHOCYTE # (test code = LY#) 2.12 x10 3/uL 1.0-3.8 N MONOCYTE # (test code = MO#) 0.37 x10 3/uL 0.1-0.8 N EOSINOPHIL # (test code = EO#) 0.03 x10 3/uL 0.0-0.2 N BASOPHIL # (test code = BA#) 0.03 x10 3/uL 0.0-0.2 N NUCLEATED RBC # (test code = NRBC#) 0.00 x10 3/uL 0.0-0.1 N BASIC METABOLIC [id number] 14:14:00* Test Item Value Reference Range Interpretation Comme nts SODIUM (test code = NA) 141 mEq/L 134-147 N POTASSIUM (test code = K) 4.5 mEq/L 3.4-5.0 N CHLORIDE (test code = CL) 106 mEq/L 100-108 N CARBON DIOXIDE (test code = CO2) 28 mEq/l 21-33 N ANION GAP (test code = GAP) 11 0-20 N GLUCOSE (test code = GLU) 85 mg/dL 77-141 N BLOOD UREA NITROGEN (test code = BUN) 10 mg/dL 7-25 N GLOMERULAR FILTRATION RATE (test code = GFR) 90.4 110-120 L The Glomerular Filtration Rate is a calculated parameterbased on serum Creatinine, patient age and sex. GFR valuesless than 60 mL/min/1.73 square meters are indicative ofChronic Kidney Disease. Values less than 15 mL/min/1.73square meters indicate Kidney failure. The calculation forGFR is based on the CKD-EPI (202) calculation. This formulais race indifferent and is the recommended formula for GFRby the National Kidney Foundation for Adults.The GFR will not calculate if the sex is unknown or if thepatient's age is <18 years. CREATININE (test code = CREAT) 0.9 mg/dL 0.6-1.3 N CALCIUM (test code = CA) 9.4 mg/dL 8.0-10.5 N HEPATIC FUNCTION [id number] 14:14:00* Test Item Value Reference Range Interpretation Comme nts TOTAL PROTEIN (test code = PROT) 7.9 g/dL 5.7-8.2 N Note change in REFERENCE RANGE due to change in REAGENT. ALBUMIN (test code = ALB) 4.50 g/dL 3.4-5.0 N BILIRUBIN TOTAL (test code = BILT) 0.60 mg/dL 0.0-1.0 N BILIRUBIN DIRECT (test code = BILD) 0.20 MG/DL 0.1-0.3 N BILIRUBIN INDIRECT (test code = BILIND) 0.40 MG/DL SGOT/AST (test code = AST) 18 IUnit/L 8-34 N SGPT/ALT (test code = ALT) 8 IUnit/L 10-49 L ALKALINE PHOSPHATASE TOTAL (test code = ALKP) 69 IUnit/L 20-125 N [id number] 14:14:00* Test Item Value Reference Range Interpretation Comme nts LIPASE (test code = LIP) 37 U/L 13-57 N HCG SERUM [id number] 14:05:00* Test Item Value Reference Range Interpretation Comme nts HCG SERUM QUAL (test code = HCGQL) SERUM NEGATIVE NEGATIVE CBC W/AUTO [id number] 14:00:00* Test Item Value Reference Range Interpretation Comme nts WHITE BLOOD CELL (test code = WBC) 9.9 x10 3/uL 4.5-11.0 N RED BLOOD CELL (test code = RBC) 4.62 x10 6/uL 3.54-5.02 N HEMOGLOBIN (test code = HGB) 13.9 g/dL 11.0-15.0 N HEMATOCRIT (test code = HCT) 41.8 % 33.0-45.0 N MEAN CELL VOLUME (test code = MCV) 90.5 fL 81.0-99.0 N MEAN CELL HGB (test code = MCH) 30.1 pg 27.0-33.0 N MEAN CELL HGB CONCETRATION (test code = MCHC) 33.3 g/dL 33.0-37.0 N RED CELL DISTRIBUTION WIDTH CV (test code = RDW) 12.7 % 11.5-14.5 N RED CELL DISTRIBUTION WIDTH SD (test code = RDW-SD) 41.8 fL 37.0-54.0 N PLATELET COUNT (test code = PLT) 358 x10 3/uL 150-400 N MEAN PLATELET VOLUME (test c ode = MPV) 10.0 fL 7.0-9.0 H NEUTROPHIL % (test code = NT%) 70.2 % 56.0-77.0 N IMMATURE GRANULOCYTE % (test code = IG%) 0.5 % 0.0-2.0 N LYMPHOCYTE % (test code = LY%) 23.9 % 14.0-32.0 N MONOCYTE % (test code = MO%) 4.6 % 4.8-9.0 L EOSINOPHIL % (test code = EO%) 0.3 % 0.3-3.7 N BASOPHIL % (test code = BA%) 0.5 % 0.0-2.0 N NUCLEATED RBC % (test code = NRBC%) 0.0 % 0-0 N NEUTROPHIL # (test code = NT#) 6.95 x10 3/uL 2.0-7.6 N IMMATURE GRANULOCYTE # (test code = IG#) 0.05 x10 3/uL 0.00-0.03 H LYMPHOCYTE # (test code = LY#) 2.37 x10 3/uL 1.0-3.8 N MONOCYTE # (test code = MO#) 0.46 x10 3/uL 0.1-0.8 N EOSINOPHIL # (test code = EO#) 0.03 x10 3/uL 0.0-0.2 N BASOPHIL # (test code = BA#) 0.05 x10 3/uL 0.0-0.2 N NUCLEATED RBC # (test code = NRBC#) 0.00 x10 3/uL 0.0-0.1 N UA RFLX MICR CULT IF [id number] 13:42:00* Test Item Value Reference Range Interpretation Comme nts UA COLOR (test code = COLU) YELLOW YEL/STRAW UA APPEARANCE (test code = APPU) CLEAR CLEAR UA GLUCOSE DIPSTICK (test code = DGLUU) NEGATIVE NEGATIVE UA BILIRUBIN DIPSTICK (test code = BILU) NEGATIVE NEGATIVE UA KETONE DIPSTICK (test code = KETU) NEGATIVE NEGATIVE UA SPECIFIC GRAVITY (test code = SGU) 1.006 1.005-1.030 N UA BLOOD DIPSTICK (test code = HANK) 1+ NEGATIVE A UA PH DIPSTICK (test code = EVELYN) 9.0 5.0-7.0 H UA PROTEIN DIPSTICK (test code = PROU) NEGATIVE NEGATIVE UA UROBILINIOGEN DIPSTICK (test code = URO) 0.2 mg/dL 0.2-1.0 UA NITRITE DIPSTICK (test code = BIJU) NEGATIVE NEGATIVE UA LEUKOCYTE ESTERASE DIPSTICK (test code = LEUU) TRACE NEGATIVE A UA WBC (test code = WBCU) 0-3 WBC/HPF 0-3 UA RBC (test code = RBCU) NONE SEEN RBC/HPF 0-3 UA WBC NO REFLEX (test code = WBCUCL) 0-3 WBC/HPF 0-3 UA BACTERIA (test code = BACU) NONE SEEN /HPF NONE SEEN UA SQUAMOUS CELLS (test code = SQU) 0-5 /HPF NONE SEEN Indication for culture: Flank PainSpecimen Description: CLEAN CATCHPOCT [id number] 22:20:00* Test Item Value Reference Range Interpretation Comme nts POCT PREG (test code = 1605) Negative On board controls acceptable with C Line (test code = 3574) Yes POCT PREG LOT # (test code = 3577) [id number] POCT PREG TEST DATE ( test code = 3576) 2025-06-20 Lab Interpretation (test cod e = 30220-0) Normal [facility] BranchSURGICAL PATH [id number] 14:27:00* Test Item Value Reference Range Interpretation Comme nts SURGICAL PATH SPECIMENS (test code = S) RUN DATE: 11/14/20 [place] - LAB PAGE 1 RUN TIME: 1427 Specimen Inquiry RUN USER: INTERFACE DARSHAN ENT: SHALOM NAVARRO E LOC: Jenny U #: [id number] AGE/SX: / [place] [facility] DR: Elmer Zapien MD : 98 BED: 1 DIS: STATUS: ADM IN TLOC: SPEC #: [id number] RECD: 11/13/20 STATUS: SMILEY AGUERO #: [id number] [place]: 11/12/20- SUBM DR: Elmer Zapien MD ENTERED: 11/13/20 SP TYPE: SURG SPEC OTHR DR: Self Referred Earl,Julissa Soriano DOORDERED: GM LEVEL 5 CODES: [id number] - PLACENTA, NOS COPIES TO: Self Referred aRjatJulissa Soriano DO [address] [facility] [place] [address] Elmer Zapien MD [address] [facility] [address] [place] [address] PROCEDURES: GM LEVEL 5 (11/13/20) TISSUES: PLACENTA, NOS FINAL DIAGNOSIS Placenta: Third trimester placenta with acute chorionitis, deciduitis; 385 g (expected mean 519 g); trivascular umbilical cord with mild acute vasculitis. GROSS AND MICROSCOPIC GROSS EXAMINATION: Received is a placenta measuring 17 x 13.9 x 1.8 cm with attached umbilical cord measuring 46 cm in length, 1 cm in diameter, arising 6 cm from the margin. Sections are submitted as A-D. The maternal surface appears intact. The placental disc weighs 385 g. Microscopic examination: The trivascular umbilical cord contains mild acute inflammatory cells within vessel mosqueda. The membranes have acute inflammatory cells within the chorion. The villi are predominantly small, with decreased cellularity and prominent vasculature. The decidua shows acute and chronic inflammation. CONTINUED ON NEXT PAGE RUN DATE: 11/14/20 [facility] LAB PAGE 2 RUN TIME: 1426 Specimen Inquiry RUN USER: INTERFACE SPEC #: [id number] PATIENT: SHALOM NAVARRO E #[id number] (Continued) ------- Signed SIGNATURE ON FILE Florence Eli MD 11/14/20 1427 END OF REPORT CBC W/AUTO [id number] 07:37:00* Test Item Value Reference Range Interpretation [...] c ode = MDIFF) NO RAPID PLASMA [id number] 10:53:00* Test Item Value Reference Range Interpretation Comme nts RAPID PLASMA REAGIN (test co de = RPR) NONREACTIVE NONREACTIVE AG HEPATITIS B [id number] 10:53:00* Test Item Value Reference Range Interpretation Comme nts AG HEPATITIS B SURFACE (test code = HBSAG) NON REACTIVE INDEX NonReactive AB HIV 1 10:53:00* Test Item Value Reference Range Interpretation Comme nts AB HIV 1 2 (test code = QSV27RZ) NONREACTIVE INDEX NONREACTIVE RAPID PLASMA [id number] 19:19:00* Test Item Value Reference Range Interpretation Comme nts RAPID PLASMA REAGIN (test code = RPR) NONREACTI VE AG HEPATITIS B [id number] 19:19:00* Test Item Value Reference Range Interpretation Comme nts AG HEPATITIS B SURFACE (test code = HBSAG) NON REACTIVE INDEX NonReactive AB HIV 1 19:19:00* Test Item Value Reference Range Interpretation Comme nts AB HIV 1 2 (test code = UWM65EH) NONREACTIVE INDEX NONREACTIVE COVID 19 Asymptomatic IH [id number] 18:38:00* Test Item Value Reference Range Interpretation [...] COMMENTS: If not done this admissionCOMPREHENSIVE METABOLIC [id number] 16:38:00* Test Item Value Reference Range Interpretation [...] code = ALKP) IUnit/L 20-125 COMPREHENSIVE METABOLIC [id number] 16:38:00* Test Item Value Reference Range Interpretation [...] ALKP) 221 IUnit/L 20-125 H CBC W/AUTO [id number] 14:56:00* Test Item Value Reference Range Interpretation [...] c ode = MDIFF) NO CBC W/AUTO [id number] 14:55:00* Test Item Value Reference Range Interpretation [...] c ode = MDIFF) - US BIOPHYS [id number] 00:00:00 [facility] TAE ASHLANDName: SHALOM NAVARRO : 2000 Sex: F Name: SHALOM NAVARRO [facility] Tae Fontenot : 2000 Age/S: 20 / F [address] Unit #: [id number] Loc: [place] [address] Phys: Julissa Earl DO Acct: [id number] Dis Date: Status: REG ER PHONE #: [phone] Exam Date: 11/11/2020 1639 FAX #: [phone] Reason:decreased mvmt at 38 week EXAMS: CPT CODE: [id number] US BIOPHYS PROF [id number] PROCEDURE INFORMATION: Exam: US Biophysical Profile With [...] Alfredo Anderson RDMS() Trnscb Date/Time: 11/11/2020 (1713) [email or web address] Orig Print D/T: S: 11/11/2020 (1713) Probe: PAGE 1 Signed ReportURINALYSIS [id number] 23:00:00* Test Item Value Reference Range Interpretation [...] MUCU) TRACE /LPF NONE SEEN AMNISURE (ROM) [id number] 22:56:00* Test Item Value Reference Range Interpretation Comme nts AMNISURE (ROM) TEST (test co de = AMNI) NEGATIVE NEGATIVE COVID 19 Asymptomatic IH [id number] 22:09:00* Test Item Value Reference Range Interpretation [...] tests. COMMENTS: If not done this admissionFETAL [id number] 02:26:00* Test Item Value Reference Range Interpretation Comme nts FIBRONECTIN (test code = FFN) NEGATIVE NEGATIVE URINALYSIS [id number] 02:07:00* Test Item Value Reference Range Interpretation [...] MUCU) TRACE /LPF NONE SEEN BASIC METABOLIC [id number] 13:29:00* Test Item Value Reference Range Interpretation [...] patient ? YHOW MANY WEEKS? 6 WEEKSHCG [id number] 13:29:00* Test Item Value Reference Range Interpretation Comme nts HCG SERUM (test code = HCG) 48377.8 0 - 6 NOT PREGNA NT > 6 SUGGESTIVE OF EARLY RISES TWO FOLD EVERY 2 DAYS; SUGGEST RECONFIRMING AFTER 2 DAYS. 150,000-200,[address] TRIMESTER 10,000 - 50,000 2ND & 3RD TRIMESTERResults in jonna-International Units/mL Is patient ? YHOW MANY WEEKS? 6 WEEKS- DUP AB/PEL/SC/[id number] 11:46:00[facility]O : 2000 Sex: F Name: SHALOM NAVARRO CINDY Fontenot : 2000 Age/S: 19 / F [address] Unit #: [id number] Loc: [place] [address] Phys: Junito Pantoja MD Acct: [id number] Dis Date: Status: REG ER PHONE #: [phone] Exam Date: 03/26/20201136 FAX #: [phone] Reason: see US PREG 1st TRIMTR EXAMS: CPT CODE: [id number] DUP AB/PEL/SC/LTD 79774 PROCEDURE: PELVIC ULTRASOUND INDICATION: 1st trimester with [...] 6 weeks based on gestational sac measurement. RIG HT OVARY: 39 x 21 x 21 mm. [...] cm corpus luteum cyst right ovary. SL: [id number] at 1146 Reported and signed by: Rigoberto Pitts M.D. PAGE 1 Signed Report (CONTINUED) Name: SHALOM NAVARRO : 2000 Age/S: 19 / F [address] [facility] Unit #: [id number] Loc: [place] [address] Phys: Junito Pantoja MD Acct: [id number] Dis Date: Status: REG ER PHONE #: [phone] Exam Date: 03/26/20201136 FAX #: [phone] Reason: see US PREG 1st TRIMTR EXAMS: CPT CODE: [id number] DUP AB/PEL/SC/LTD 22856 (Continued) CC: Junito Pantoja MDTechnologist: Madai Swenson RDMS(AB) Trnscb Date/Time: 03/26/2020 (1146) [email or web address] Orig Print D/T: S: 03/26/2020 (4925) Probe: PAGE 2 Signed Report- US PREG 1ST [id number] 11:46:00[facility] : 2000 Sex: F Name: SHALOM NAVARRO [facility] : 2000 Age/S: 19 / F [address] [facility] Unit #: [id number] Loc: [place] [address] Phys: Junito Pantoja MD Acct: [id number] DisDate: Status: REG ER PHONE #: [phone] Exam Date: 03/26/20201136 FAX #: [phone] Reason: Pelvic Pain EXAMS: CPT CODE: [id number] US PREG 1ST TRIMTR 17359 PROCEDURE: PELVIC ULTRASOUND INDICATION: 1st trimester with [...] on Doppler. 3.1 cm greatest diameter simple cystlikely corpus luteum. LEFT OVARY: 28 x 18 x 14 mm. Normal blood flow on Doppler. BLADDER: Unremarkable. Comments: No adnexal masses. No free intraperitoneal fluid. IMPRESSION: 1. 6 week live intrauterine with area of subchronic hemorrhage adjacent to the gestational sac. 2. 3.1 cm corpusluteum cyst right ovary. SL: [id number] at 1146 Reported and signed by: Rigoberto Pitts M.D. PAGE 1 Signed Report (CONTINUED) Name: SHALOM GRAY [facility] : 2000 Age/S: 19 / F [address] [place] [address] Unit #: [id number] Loc: [place] [address] Phys: Junito Pantoja MD Acct: [id number] Dis Date: Status: REG ER PHONE #: [phone] Exam Date: 03/26/2020 1137 FAX #: [phone] Reason: Pelvic Pain EXAMS: CPT CODE: [id number] US PREG 1ST TRIMTR 14496 (Continued) CC: Junito Pantoja MD Technologist: SHYANNE Toribio() Trnscb Date/Time: 03/26/2020 (1146) t.ETG Orig Print D/T: S: 03/26/2020 (1149) Probe: PAGE 2 Signed Report- US PREG UT [id number] 11:46:00 [facility] 2000 Sex: F Name: SHALOM NAVARRO : 2000 Age/S: 19 / F [address] [facility] [address] Unit #: [id number] Loc: [place] [address] Phys: Junito Pantoja MD Acct: [id number] Dis Date: Status: REG ER PHONE #: [phone] Exam Date: 03/26/2020 1137 FAX #: [phone] Reason: see US PREG 1st TRIMTR EXAMS: CPT CODE: [id number] US PREG UT TRANSVAGINAL 72309 PROCEDURE: PELVIC ULTRASOUND INDICATION: 1st trimester with nausea and vomiting COMPARISON: None. TECHNIQUE: Grayscale, color and Doppler transabdominal and transvaginal imaging of the pelvis was performed with standard technique. Transvaginal ultrasound is obtained for further evaluation of the endometrium andadnexal regions. FINDINGS: UTERUS: Uterus 12 cm in [...] cm corpus luteum cyst right ovary. SL: [id number] at 1146 Reported and signed by: Rigoberto Pitts M.D. PAGE 1 Signed Report (CONTINUED) Name: SHALOM NAVARRO [facility] [place] : 2000 Age/S: 19 / F [address] [place] [address] BlvdUnit #: [id number] Loc: [place] [address] Phys: Junito Pantoja MD Acct: [id number] Dis Date: Status: REG ER PHONE #: [phone] Exam Date: 03/26/2020 113 FAX #: [phone] Reason: see US HXQG1hw TRIMTR EXAMS: CPT CODE: [id number] US PREG UT TRANSVAGINAL 90579 (Continued) CC: Junito Pantoja MD Technologist: Madai Swenson RDMS(AB) Trnscb Date/Time: 03/26/2020 (1146) [email or web address] Orig Print D/T: S: 03/26/2020 (1149) Probe: [id number] PAGE 2 Signed ReportUA RFLX MICR CULT IF [id number] 11:06:00* Test Item Value Reference Range Interpretation [...] RiskForSepsis-no oth srcSpecimen Description: CLEAN CATCHCBC W/AUTO [id number] 10:50:00* Test Item Value Reference Range Interpretation [...] c ode = MDIFF) NO CBC W/AUTO [id number] 10:42:00* Test Item Value Reference Range Interpretation [...] ode = MDIFF) CHLAMYDIA GC DNA BY [id number] 14:08:00* Test Item Value Reference Range Interpretation Comme nts C. TRACHOMATIS DNA BY PCR (test code = CHLAMTDNA) Negative Negative N. GONORRHOEAE DNA BY PCR (test code = NGONORDNA) Negative Negative Performed At: [facility] [place], [place] [id number] mateo Prabhakar MD Ph:[phone] - DUP AB/PEL/SC/[id number] 01:23:00Name: IGGY,SHALOM E [facility] [place] : 2000 Age/S: 18 / F [address] [place] [address] Unit #: [id number] Loc: [place] [address] Phys: Casper Zee Acct: [id number] Dis Date: Statu s: REG ER PHONE #: [phone] Exam Date: 12/28/2018100 FAX #: [phone] Reason: SEE PELVIC EXAMS: CPT CODE: [id number] DUP AB/PEL/SC/LTD 74594 EXAM: US, US PELVIS COMPLETE: 12/27/2018, 2352 hours EXAM: US, US TRANSVAGINAL: 12/27/2018, 2352 hours EXAM: US, DUP AB/PEL/SC LTD: 12/27/2018, 2352 hoursHistory: Pelvic pain. Low abdominal cramping. Brownish discharge. [...] PAGE 1 Signed Report (CONTINUED) Name: SHALOM NAVARRO [place] :2000 Age/S: 18 / F [address] [place] [address] Unit #: [id number] Loc: [place] [address] Phys: Casper Zee DO Acct: [id number] Dis Date: Status: REG ER PHONE #: [phone] Exam Date: 12/28/2018100 FAX #: [phone] Reason: SEE PELVIC EXAMS: CPT CODE: [id number] DUP AB/PEL/SC/LTD 35196 (Continued) at 0123 Reported and signed by: Roger Rose M.D. CC: Casper Zee DO Technologist: CURT Price)(OB) Trnscb Date/Time: 12/28 (0123) Navarro.[email or web address] Orig Print D/T: S: 12/28/2018 (0126) Probe: PAGE 2 Signed Report- US TRANSVAGINAL NON [id number] 01:23:00Name: SHALOM NAVARRO [place] : 2000 Age/S: 18 / F [address] [place] [address] Unit #: [id number] Loc: [place] [address] Phys: Casper Zee DO Acct: [id number] Dis Date: Status: REG ER PHONE #: [phone] Exam Date: 12/28/201899 FAX #: [phone] Reason: CRAMPING EXAMS: CPT CODE: [id number] [place] [address] EXAM: US, US PELVIS COMPLETE: 12/27/2018, 2352 [...] 4. Trace free fluid in the cul-de-sac SL:JSYESonia-H PAGE 1 Signed Report (CONTINUED) Name: SHALOM NAVARRO [facility] [place] : 2000 Age/S: 18 / F [address] [place] [address] Unit #: [id number] Loc: [place] [address] Phys: Casper Zee DO Acct: [id number] Dis Date: Status: REG ER PHONE #: [phone] Exam Date: 12/28/201899 FAX #: [phone] Reason: CRAMPING EXAMS: CPT CODE: [id number] [place] [address] (Continued) at 0123 Reported and signed by: Roger Rose M.D. CC: Casper Zee DO Technologist: Marta Ca RDMS(Brenda)(OB) Trnscb Date/Time: 12/28/2018 (0123) [email or web address] Orig Print D/T: S: 12/28/2018 (0126) Probe: [id number] PAGE 2 Signed Report- US PELVIS [id number] 01:23:00Name: SHALOM NAVARRO E [facility] [place] : 2000 Age/S: 18 / F [address] [place] [address] Blvd Unit #: [id number] Loc: [place] [address] Phys: Casper Zee DO Acct: [id number] Dis Date: Status: REG ER PHONE #: [phone] Exam Date: 12/28/201899 FAX #: [phone] Reason: pelvic pain EXAMS: CPT CODE: [id number] US PELVIS COMPLETE 49644 EXAM: US, US PELVIS COMPLETE: 12/27/2018, 2352 [...] Trace free fluid seen in the cul-de-sac. IMPRESSION:1. Bilateral adnexal cysts, right larger. Differential consideration would include paraovarian cystversus exophytic ovarian cysts. 2. A 1.4 x 0.9 x 1.2 cm right adnexal complex cyst. 3. Trace fluid in the endometrial canal. Endometrial stripe thickness is 8.9 mm. 4. Trace free fluid in the cul-de-sac SL:MANDIE PAGE 1 Signed Report (CONTINUED) Name: SHALOM NAVARRO [facility] : 2000 Age/S: 18 / F [address] [place] [address] Unit #: [id number] Loc: [place] [address] Phys: Casper Zee DO Acct: [id number] Dis Date: Status: REG ER PHONE #: [phone] Exam Date: 12/28/2018 0100 FAX #: [phone] Reason: pelvic pain EXAMS: CPT CODE: [id number] US PELVIS COMPLETE 37147 (Continued) at 0123 Reported and signedby: Roger Rose M.D. CC: Casper Zee DO Technologist: Marta Ca RDMS(Brenda)(OB) Trnscb Date/Time: (0123) Navarro.[email or web address] Orig Print D/T: S: 12/28/2018 (0126) Probe: PAGE 2 Signed ReportUA RFLX MICR CULT IF [id number] 00:05:00* Test Item Value Reference Range Interpretation [...] culture: Suprapubic PainSpecimen Description: CLEAN CATCHHCG SERUM [id number] 23:59:00* Test Item Value Reference Range Interpretation Comme nts HCG SERUM QUAL (test code = HCGQL) SERUM NEGATIVE NEGATIVE CBC W/AUTO [id number] 23:52:00* Test Item Value Reference Range Interpretation [...] (test code = MDIFF) NO CHEMISTRY 8 [id number] 23:45:00* Test Item Value Reference Range Interpretation [...] code = GFRBED) 97 ML/MIN CHEMISTRY 8 [id number] 23:45:00* Test Item Value Reference Range Interpretation Comme nts ISTAT-SODIUM (test code = NAP) 140 MMOL/L 134-147 N ISTAT-POTASSIUM (test code = KP) 3.4 MMOL/L 3.4-5.0 N ISTAT-CHLORIDE (test code = CLP) 101 MMOL/L 100-108 N Performed by certified chlorine operator at [facility] ISTAT CARBON DIOXIDE (test code = ISTAT-CO2) 26.0 mmol/L 21-33 N ISTAT CALCIUM IONIZED (test code = ISTAT-KARON) 1.22 MG/DL 1.12-1.32 N ISTAT-GLUCOSE (test code = GLUP) 111 MG/DL 70-110 H ISTAT-BUN (test code = BUNP) 10 MG/DL 7-18 N BEDSIDE CREATININE (test code = CREATBED) 0.8 MG/DL 0.6-1.3 N GLOMERULAR FILTRATION RATE POC (test code = GFRBED) 97 ML/MIN URINALYSIS [id number] 13:24:00* Test Item Value Reference Range Interpretation [...] MUCU) TRACE /LPF NONE SEEN UR HCG [id number] 13:22:00* Test Item Value Reference Range Interpretation Comme nts UR HCG QUAL (test code = HCGQLU) NEGATIVE NEGATIVE Notes Date/Time Note Provider Source 2024-07-18 14:31:00 [facility] ([facility]) EMERGENCY PROVIDER REPORT REPORT#:[id number] REPORT STATUS: Signed DATE:07/18/24 TIME: 143 PATIENT: SHALOM NAVARRO UNIT #: [id number] ROOM/BED: : 98 AGE: 24 SEX:F PCP PHYS: Elmer Zapien MD SERVICE AUTHOR: Alejandro Au CLIMATOLOGY PROFESSOR REP SRV REP SRV TM: 1431 * ALL edits or amendments must be made on the electronic/computer document * Alejandro Au 07/18/24 1431: HPI-Abd Pain F Under 40 Free Text HPI Notes Free Text HPI Notes This 24-year-old female with past medical history of ovarian cysts, hepatic mass presents emergency department today with complaint of 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 Patient denies any current SOB, chest pain, dizziness, lightheadedness, nausea/vomiting, diarrhea, fever, chills, LUNA. 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 Patient is nonmenstrual due to IUD. General Confirmed Patient Yes Patient Type New patient Initial Greet Date/Time 07/18/24 1350 Presentation Chief Complaint Abdominal pain Sudden in Onset? Yes Risk-Abd Pain F Under 40 )( Ectopic Risk factors reviewed Review of Systems ROS Statements All systems rev neg except as marked. Past Medical History - Adult Stated Complaint OVARIAN CYSTS Allergies Coded Allergies: No Known Allergies (06/30/24) Home Medications Active Scripts IBUPROFEN (MOTRIN) 600 MG PO QID PRN PRN PAIN IBUPROFEN (MOTRIN) 600 MG PO QID PRN PRN PAIN #20 TABS Prov: 06/30/24 ONDANSETRON ODT (ZOFRAN ODT) 4 MG PO Q6H PRN PRN NAUSEA/VOMITING ONDANSETRON ODT (ZOFRAN ODT) 4 MG PO Q6H PRN PRN NAUSEA/VOMITING #15 TABS Prov: 06/30/24 Reported Medications PNV WITH FE FUMARATE/FA () 1 TAB PO DAILY Additional Medical History Ovarian cysts Additional Surgical History Ovarian cyst removal Smoking status for patients 13 years old or older: Unknown,if ever smoked Physical Exam Vital Signs Vital Signs First Documented: Result Date Time Pulse Ox 97 07/18 1350 B/P 111/81 07/18 1350 O2 Delivery Room air 07/18 1350 Temp 36.8 07/18 1350 Pulse 94 07/18 1350 Resp 18 07/18 1350 B/P Mean 97 07/18 1424 Last Documented: Result Date Time Pulse Ox 99 07/18 1708 B/P 132/78 07/18 1708 B/P Mean 95 07/18 1708 Pulse 90 07/18 1708 O2 Delivery Room air 07/18 1350 Temp 36.8 07/18 1350 Resp 18 07/18 1350 Review of Vital Signs Reviewed Free Text PE Notes Free Text PE Notes Gen: Well appearing, well hydrated, cooperative Lungs: CTAB no R/R/W Heart: RRR, normal pulses Abd: S/moderate tenderness/ND, voluntary guarding Back: NT, no CVA tenderness Neuro: A O x 3, CN II-XII grossly intact. Strength and sensation grossly intact , ambulatory with steady gait Interpretation Diagnostics Lab Results Interpretation Results Laboratory Tests 07/18/24 1410: [Embedded Image Not Available] Laboratory Tests: 07/18 07/18 1620 1410 Chemistry Serum , Qual (NEGATIVE) SERUM NEGATIVE Urines Urine Color (YEL/STRAW) STRAW Urine Appearance (CLEAR) CLEAR Urine pH (5.0 - 7.0) 8.0 H Ur Specific [place] (1.005 - 1.030) 1.003 L Urine Protein (NEGATIVE) NEGATIVE Urine Glucose (UA) (NEGATIVE) NEGATIVE Urine Ketones (NEGATIVE) NEGATIVE Urine Blood (NEGATIVE) NEGATIVE Urine Nitrite (NEGATIVE) NEGATIVE Urine Bilirubin (NEGATIVE) NEGATIVE Urine Urobilinogen (0.2 - 1.0 mg/dL) 0.2 Ur Leukocyte Esterase (NEGATIVE) NEGATIVE Urine RBC (0 - 3 RBC/HPF) NONE SEEN Urine WBC (0 - 3 WBC/HPF) NONE SEEN Ur Squamous Epith Cells (NONE SEEN /HPF) 0-5 Urine Bacteria (NONE SEEN /HPF) NONE SEEN Urine Mucus (NONE SEEN /LPF) TRACE 07/18 141 Chemistry Sodium (134 - 147 mEq/L) 140 Potassium (3.4 - 5.0 mEq/L) 3.7 Chloride (100 - 108 mEq/L) 109 H Carbon Dioxide (21 - 33 mEq/l) 24 Anion Gap (0 - 20) 11 BUN (7 - 25 mg/dL) 9 Creatinine (0.6 - 1.3 mg/dL) 1.0 Glomerular Filtr Rate (110 - 120) 79.7 L Glucose (77 - 141 mg/dL) 104 Calcium (8.0 - 10.5 mg/dL) 10.1 Total Bilirubin (0.0 - 1.0 mg/dL) 0.70 Direct Bilirubin (0.1 - 0.3 MG/DL) 0.20 Indirect Bilirubin (MG/DL) 0.50 AST (8 - 34 IUnit/L) 19 ALT (10 - 49 IUnit/L) < 7 L Total Alk Phosphatase (20 - 125 IUnit/L) 68 Total Protein (5.7 - 8.2 g/dL) 8.2 Albumin (3.4 - 5.0 g/dL) 4.80 Hematology WBC (4.5 - 11.0 x10 3/uL) 9.5 RBC (3.54 - 5.02 x10 6/uL) 4.69 Hgb (11.0 - 15.0 g/dL) 14.1 Hct (33.0 - 45.0 %) 42.3 MCV (81.0 - 99.0 fL) 90.2 MCH (27.0 - 33.0 pg) 30.1 MCHC (33.0 - 37.0 g/dL) 33.3 RDW (11.5 - 14.5 %) 12.7 Plt Count (150 - 400 x10 3/uL) 367 MPV (7.0 - 9.0 fL) 10.5 H Neut % (Auto) (56.0 - 77.0 %) 72.7 Lymph % (Auto) (14.0 - 32.0 %) 22.3 Dewitt % (Auto) (4.8 - 9.0 %) 3.9 L Eos % (Auto) (0.3 - 3.7 %) 0.3 Baso % (Auto) (0.0 - 2.0 %) 0.3 Neut # (Auto) (2.0 - 7.6 x10 3/uL) 6.91 Lymph # (Auto) (1.0 - 3.8 x10 3/uL) 2.12 Dewitt # (Auto) (0.1 - 0.8 x10 3/uL) 0.37 Eos # (Auto) (0.0 - 0.2 x10 3/uL) 0.03 Baso # (Auto) (0.0 - 0.2 x10 3/uL) 0.03 Abs Immat Gran (auto) (0.00 - 0.03 x10 3/uL) 0.05 H Immature Gran % (0.0 - 2.0 %) 0.5 Nucleated RBC % (0 - 0 %) 0.0 Nucleated RBCs # (Man) (0.0 - 0.1 x10 3/uL) 0.00 Recent Impressions: ULTRASOUND - DUP AB/PEL/SC/LTD 07/18 1533 Report Impression - Status: SIGNED Entered: 07/18/2024 3719 IMPRESSION: A minimally complex paraovarian cyst is seen in the patient's right ovary. There is no evidence of torsion of the right ovary. The uterus and left ovary are unremarkable. Again seen is an IUD within the endometrial space. Impression By: YeniferRLKavon Del Cid M.D. ULTRASOUND - US TRANSVAGINAL NON OB 07/18 1533 Report Impression - Status: SIGNED Entered: 07/18/2024 1628 IMPRESSION: A minimally complex paraovarian cyst is seen in the patient's right ovary. There is no evidence of torsion of the right ovary. The uterus and left ovary are unremarkable. Again seen is an IUD within the endometrial space. Impression By: Christos Del Cid M.D. ULTRASOUND - US PELVIC COMPLETE 07/18 1534 Report Impression - Status: SIGNED Entered: 07/18/2024 1628 IMPRESSION: A minimally complex paraovarian cyst is seen in the patient's right ovary. There is no evidence of torsion of the right ovary. The uterus and left ovary are unremarkable. Again seen is an IUD within the endometrial space. Impression By: Christos Del Cid M.D. CAT SCAN - CT ABD PELVIS W/CONT 07/18 1703 Report Impression - Status: SIGNED Entered: 07/18/2024 1801 IMPRESSION: There are no acute findings in this patient's abdomen or pelvis on this CT examination. Impression By: Christos Del Cid M.D. Point of Care Testing Pulse Oximetry Pulse Ox % 97 On: Room air Interpretation Interpreted by , Pulse oximetry normal Time 1340 Re-Evaluation MDM Free Text MDM Notes Free Text MDM Notes Patient presents the ED today with complaint of abdominal pain x 1 hour. Differential diagnoses include pyelonephritis, cystitis, colitis, diverticulosis , diverticulitis, cholelithiasis, cholecystitis, appendicitis, SBO, ileus, electrolyte imbalance, anemia, dehydration, ruptured ovarian cyst. Will assess serum labs, urine for UA, US pelvis non-OB, CT abdomen/pelvis to rule out these conditions. )( Re-Evaluation/Progress #1 Text/Dict Note Patient sitting on chair, no apparent distress noted. Results reviewed and discussed with patient: Hematology chemistry are unremarkable. hCG is negative. UA is negative for cystitis. US non-OB shows a minimally complex paraovarian cyst right ovary without evidence of torsion; uterus and left ovary are unremarkable. IUD within the endometrial space. CT abdomen/pelvis remain pending at this time. All care passed to za Timmons NP at this time for continued assessment and patient disposition. Time of Re-Eval 1649 ED Course Medication(s) Ordered Medication(s) Ordered: Central Nervous System Agents Sig/Prisca Start time Last Medication Dose Route Stop Time Status Admin Ketorolac 30 MG X1ED STA 07/18 1824 DC 07/18 Tromethamine IV 07/18 1825 1827 Acetaminophen 1,000 MG X1ED STA 07/18 1623 DC 07/18 PO 07/18 1624 1657 Morphine Sulfate 2 MG X1ED STA 07/18 1431 DC 07/18 IV 07/18 1432 1441 Diagnostic Agents Sig/Prisca Start time Last Medication Dose Route Stop Time Status Admin Iopamidol 100 ML .STK-MED ONE 07/18 1712 DC 07/18 IV 07/18 1713 1712 Electrolytic, Caloric, And Miguel Angel Sig/Prisca Start time Last Medication Dose Route Stop Time Status Admin Sodium Chloride 1,000 ML X1ED STA 07/18 1431 DC 07/18 IV 07/18 1530 1443 Gastrointestinal Drugs Sig/Prisca Start time Last Medication Dose Route Stop Time Status Admin Ondansetron HCl 4 MG X1ED STA 07/18 1431 DC 07/18 IV 07/18 1432 1442 Patient Discharge Departure Vital Signs/Condition Vital Signs First Documented: Result Date Time Pulse Ox 97 07/18 1350 B/P 111/81 07/18 1350 O2 Delivery Room air 07/18 1350 Temp 36.8 07/18 1350 Pulse 94 07/18 1350 Resp 18 07/18 1350 B/P Mean 97 07/18 1424 Last Documented: Result Date Time Pulse Ox 99 07/18 1708 B/P 132/78 07/18 1708 B/P Mean 95 07/18 1708 Pulse 90 07/18 1708 O2 Delivery Room air 07/18 1350 Temp 36.8 07/18 1350 Resp 18 07/18 1350 All vital signs available at the time of this entry have been reviewed. Pt/Provider Handoff Shift Change Note This patient's care has been transferred to YADIRA Timmons. We discussed: the patient's chief complaint; labs and imaging that have been completed and those that are still pending; procedures that have been completed and those remaining to be done; any treatment provided and the patient's response to treatment; input from consultants (if any); the remaining treatment plan. The incoming physician will follow up on all pending labs and imaging, make any necessary changes to the current impression and/or treatment plan and provide a final disposition. Nicky Timmons 07/18/24 1835: Re-Evaluation MDM )( Re-Evaluation/Progress #1 )( Re-Eval Status Improved Re-Evaluation/Progress #2 Text/Dict Note Received report from this patient from outgoing CLIMATOLOGY PROFESSOR Angely, patient pending a CT scan. 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 and will call for follow-up patient stable for discharge Time of Eval 1839 Re-Eval Status Improved Differential Diagnosis )( Differential Diagnosis Appendicitis, Bowel obstruction, Diverticular disease, Ovarian cyst, Ovarian torsion, Septic shock?, Severe sepsis?, Urinary tract infection Patient Discharge Departure Clinical Impression Clinical Impression Primary Impression: Ovarian cyst Disposition Decision Discharge )( Discharged to Home Yes )( Time 1841 )( Date 07/18/24 Discharge/Care Plan (Auto) Prescriptions Current Visit Scripts IBUPROFEN (MOTRIN) 800 MG PO TID PRN PRN PAIN IBUPROFEN (MOTRIN) 800 MG PO TID PRN PRN PAIN #20 TABS ONDANSETRON ODT (ZOFRAN ODT) 4 MG PO Q6H PRN PRN NAUSEA/VOMITING ONDANSETRON ODT (ZOFRAN ODT) 4 MG PO Q6H PRN PRN NAUSEA/VOMITING #15 TABS Prescriptions Reviewed Risks, Benefits Patient Instructions Abdominal Pain, ED Ovarian Cyst Additional Instructions CT has no findings, blood work is also normal, ultrasound shows a small ovarian cyst on the right side, [employer]T [employer]CKLE [employer]KER follow-up given 1. The examination and treatment that you have received has been on an emergency basis only and is not intended as an effort to provide complete medical care. It is impossible to recognize and treat all elements of an illness or injury in a single ER visit. 2. Thank you for allowing us to provide emergent medical care to you or your family member. We consider it a privilege to have served you during your illness or injury. 3. If you have received a prescription, please fill it TODAY and follow the instructions carefully. 4. Please seek medical attention or return to the ER immediately if your symptoms persist despite treatment (as applicable), if new symptoms develop, if your symptoms worsen or for any other concerns. Discharge Note I have spoken with the patient and/or caregivers. I have explained the patient's condition, diagnoses and treatment plan based on the information available to me at this time. I have answered the patient's and/or caregiver's questions and addressed any concerns. The patient and/or caregivers have as good an understanding of the patient's diagnosis, condition and treatment plan as can be expected at this point. The vital signs have been stable. The patient's condition is stable and appropriate for discharge from the emergency department. The patient will pursue further outpatient evaluation with the primary care physician or other designated or consulting physician as outlined in the discharge instructions. The patient and/or caregivers are agreeable to this plan of care and follow-up instructions have been explained in detail. The patient and/or caregivers have received these instructions in written format and have expressed an understanding of the discharge instructions. The patient and/or caregivers are aware that any significant change in condition or worsening of symptoms should prompt an immediate return to this or the closest emergency department or a call to 911. Nilton Gastelum 07/19/24 1329: Patient Discharge Departure Supervising Physician Note MidLv Saw Pt Alone I have reviewed the PA/CLIMATOLOGY PROFESSOR's note and plan of care. I was available for consultation as needed at all times during the patient's visit in the emergency department. I agree with the clinical impression, plan and disposition. at 1652 at 1909 at 1329 RPT #:[id number] END OF REPORT [facility] 2024-06-30 12:28:00 [facility] ([facility]) EMERGENCY PROVIDER REPORT REPORT#:[id number] REPORT STATUS: Signed DATE:06/30/24 TIME: 1228 PATIENT: SHALOM NAVARRO UNIT #: [id number] ROOM/BED: : 98 AGE: 24 SEX:F PCP PHYS: Elmer Zapien MD SERVICE AUTHOR: Nicky Timmons APRNNP REP SRV REP SRV TM: 1228 * ALL edits or amendments must be made on the electronic/computer document * Nicky Timmons 06/30/24 1228: HPI-Abd Pain F Under 40 Free Text HPI Notes Free Text HPI Notes 24-year-old female with history of ovarian cysts comes to the ER complaining of sudden abdominal pain 10 out of 10 while she was at work. Patient stating that she folic she went to pass out due to the pain, episode of nausea without any vomiting. Patient states that she does have history of ovarian cysts and this sounds like the same pain the last time she had the pain was 3 years ago. History of ovarian rupture and cyst drainage on the left over. Also states that she does have an IUD. General Initial Greet Date/Time 06/30/24 1205 Presentation Chief Complaint Abdominal pain Sudden in Onset? No Risk-Abd Pain F Under 40 )( Ectopic Risk factors N/A, No risk factors Past Medical History - Adult Stated Complaint OVARY PAIN Allergies Coded Allergies: No Known Allergies (06/30/24) Home Medications Reported Medications PNV WITH FE FUMARATE/FA () 1 TAB PO DAILY Additional Medical History Ovarian cysts Additional Surgical History Ovarian cyst removal Physical Exam Vital Signs Vital Signs First Documented: Result Date Time Pulse Ox 98 06/30 1251 B/P 93/54 06/30 1251 O2 Delivery Room air 06/30 1251 Temp 36.7 06/30 1251 Pulse 67 06/30 1251 Resp 16 06/30 1251 B/P Mean 80.8 06/30 1620 Last Documented: Result Date Time Pulse Ox 100 06/30 1620 B/P 103/70 06/30 1620 B/P Mean 80.8 06/30 1620 Temp 36.9 06/30 1620 Pulse 63 06/30 1620 O2 Delivery Room air 06/30 1251 Resp 16 06/30 1251 Review of Vital Signs Reviewed Focused PE General/Const General/Const Awake, Alert, No acute distress Resp/Chest Respiratory/Chest Atraumatic, Breath sounds NL, Breath sounds = bilat, No respiratory distress Cardiovascular Cardiovascular Heart rate NL, Regular rhythm, Heart sounds NL Abdomen/GI Abdomen/GI Atraumatic, Soft, TTP mostly left quandrant MS Back Back Atraumatic, Inspection NL, Full range of motion Neurologic Neurologic Oriented X3, Speech NL, No motor deficits Interpretation Diagnostics Lab Results Interpretation Results Laboratory Tests 06/30/24 1327: [Embedded Image Not Available] Laboratory Tests: 06/30 06/30 1327 1327 Chemistry Sodium (134 - 147 mEq/L) 141 Potassium (3.4 - 5.0 mEq/L) 4.5 Chloride (100 - 108 mEq/L) 106 Carbon Dioxide (21 - 33 mEq/l) 28 Anion Gap (0 - 20) 11 BUN (7 - 25 mg/dL) 10 Creatinine (0.6 - 1.3 mg/dL) 0.9 Glomerular Filtr Rate (110 - 120) 90.4 L Glucose (77 - 141 mg/dL) 85 Calcium (8.0 - 10.5 mg/dL) 9.4 Total Bilirubin (0.0 - 1.0 mg/dL) 0.60 Direct Bilirubin (0.1 - 0.3 MG/DL) 0.20 Indirect Bilirubin (MG/DL) 0.40 AST (8 - 34 IUnit/L) 18 ALT (10 - 49 IUnit/L) 8 L Total Alk Phosphatase (20 - 125 IUnit/L) 69 Total Protein (5.7 - 8.2 g/dL) 7.9 Albumin (3.4 - 5.0 g/dL) 4.50 Lipase (13 - 57 U/L) 37 Serum , Qual (NEGATIVE) SERUM NEGATIVE Hematology WBC (4.5 - 11.0 x10 3/uL) 9.9 RBC (3.54 - 5.02 x10 6/uL) 4.62 Hgb (11.0 - 15.0 g/dL) 13.9 Hct (33.0 - 45.0 %) 41.8 MCV (81.0 - 99.0 fL) 90.5 MCH (27.0 - 33.0 pg) 30.1 MCHC (33.0 - 37.0 g/dL) 33.3 RDW (11.5 - 14.5 %) 12.7 Plt Count (150 - 400 x10 3/uL) 358 MPV (7.0 - 9.0 fL) 10.0 H Neut % (Auto) (56.0 - 77.0 %) 70.2 Lymph % (Auto) (14.0 - 32.0 %) 23.9 Dewitt % (Auto) (4.8 - 9.0 %) 4.6 L Eos % (Auto) (0.3 - 3.7 %) 0.3 Baso % (Auto) (0.0 - 2.0 %) 0.5 Neut # (Auto) (2.0 - 7.6 x10 3/uL) 6.95 Lymph # (Auto) (1.0 - 3.8 x10 3/uL) 2.37 Dewitt # (Auto) (0.1 - 0.8 x10 3/uL) 0.46 Eos # (Auto) (0.0 - 0.2 x10 3/uL) 0.03 Baso # (Auto) (0.0 - 0.2 x10 3/uL) 0.05 Abs Immat Gran (auto) (0.00 - 0.03 x10 3/uL) 0.05 H Immature Gran % (0.0 - 2.0 %) 0.5 Nucleated RBC % (0 - 0 %) 0.0 Nucleated RBCs # (Man) (0.0 - 0.1 x10 3/uL) 0.00 Urines Urine Color (YEL/STRAW) YELLOW Urine Appearance (CLEAR) CLEAR Urine pH (5.0 - 7.0) 9.0 H Ur Specific [place] (1.005 - 1.030) 1.006 Urine Protein (NEGATIVE) NEGATIVE Urine Glucose (UA) (NEGATIVE) NEGATIVE Urine Ketones (NEGATIVE) NEGATIVE Urine Blood (NEGATIVE) 1+ H Urine Nitrite (NEGATIVE) NEGATIVE Urine Bilirubin (NEGATIVE) NEGATIVE Urine Urobilinogen (0.2 - 1.0 mg/dL) 0.2 Ur Leukocyte Esterase (NEGATIVE) TRACE H Urine RBC (0 - 3 RBC/HPF) NONE SEEN Urine WBC (0 - 3 WBC/HPF) 0-3 Ur Squamous Epith Cells (NONE SEEN /HPF) 0-5 Urine Bacteria (NONE SEEN /HPF) NONE SEEN Recent Impressions: ULTRASOUND - DUP AB/PEL/SC/LTD 06/30 1555 Report Impression - Status: SIGNED Entered: 06/30/2024 1570 Impression: 1. Somewhat thick-walled 3.4 cm right adnexal cyst, possibly paraovarian. To be followed 2. Normal-appearing ovaries otherwise with no evidence of torsion. 3. Retroverted uterus. Unremarkable otherwise. Impression By: Anna Reed M.D. ULTRASOUND - US TRANSVAGINAL NON OB 06/30 1324 Report Impression - Status: SIGNED Entered: 06/30/2024 1338 Impression: 1. Somewhat thick-walled 3.4 cm right adnexal cyst, possibly paraovarian. To be followed 2. Normal-appearing ovaries otherwise with no evidence of torsion. 3. Retroverted uterus. Unremarkable otherwise. Impression By: Anna Reed M.D. ULTRASOUND - US PELVIC COMPLETE 06/30 1324 Report Impression - Status: SIGNED Entered: 06/30/20248 Impression: 1. Somewhat thick-walled 3.4 cm right adnexal cyst, possibly paraovarian. To be followed 2. Normal-appearing ovaries otherwise with no evidence of torsion. 3. Retroverted uterus. Unremarkable otherwise. Impression By: Anna Reed M.D. CAT SCAN - CT ABD PELVIS W/CONT 06/30 1433 Report Impression - Status: SIGNED Entered: 06/30/2024 1542 IMPRESSION: A definite cause for the patient's acute lower abdominal pain is not found on this CT: However, compared to 9 years ago, a nonspecific liver mass (segment IVb) has developed, measuring up to 7.7 cm. Considerations include hepatic adenoma and focal nodular hyperplasia. Recommend correlation with liver function tests. Recommend a dedicated multiphase liver MRI, without and with intravenous gadolinium. 3.5 cm benign-appearing cyst is again seen in the right adnexa. Impression By: Lisha Carpenter M.D. Re-Evaluation [facility] )( Re-Evaluation/Progress #1 Text/Dict Note 24-year-old female comes the ER complaining of left lower abdominal pain, according to the CT scan there are no acute findings except a prior history of volume liver mass spoke to the patient and she stated that she has had that taken care , also currently patient's labs liver enzymes are also normal. Ultrasound shows a cyst on the right side which is only 3 cm. Patient has an OB /[employer] she will call for an appointment Diagnostic testing, and current condition do not suggest acute abdominal emergency, requiring surgery or hospitalization appendicitis, bowel obstruction, incarcerated hernia, acute cholecystitis, bowel perforation,severe diverticulitis ruled out by CT scan. laboratory studies do not suggest major gastrointestinal bleeding, sepsis, or other significant pathology to warrant further testing, continued ED treatment, admission, or surgical evaluation at this point. The vital signs have been stable and are within normal limits at this time. Repeat abdominal exam nontender. P.o. challenge passed without any vomiting. The patient will pursue further outpatient evaluation with the primary care physician or other designated or consulting physician as indicated in the discharge instructions. Time of Re-Eval 1600 )( Re-Eval Status Resolved ED Course Medication(s) Ordered Medication(s) Ordered: Central Nervous System Agents Sig/Prisca Start time Last Medication Dose Route Stop Time Status Admin Ketorolac 15 MG X1ED STA 06/30 1227 DC 06/30 Tromethamine IV 06/30 1228 1356 Morphine Sulfate 4 MG X1ED STA 06/30 1227 DC 06/30 IV 06/30 1228 1353 Diagnostic Agents Sig/Prisca Start time Last Medication Dose Route Stop Time Status Admin Iopamidol 100 ML .STK-MED ONE 06/30 1435 DC 06/30 IV 06/30 1436 1435 Electrolytic, Caloric, And Miguel Angel Sig/Prisca Start time Last Medication Dose Route Stop Time Status Admin Sodium Chloride 1,000 ML X1ED STA 06/30 1227 DC 06/30 IV 06/30 1326 1350 Gastrointestinal Drugs Sig/Prisca Start time Last Medication Dose Route Stop Time Status Admin Ondansetron HCl 4 MG X1ED PRN PRN 06/30 1230 DC 06/30 IV 07/01 1229 1352 Differential Diagnosis )( Differential Diagnosis Appendicitis, Bowel obstruction, Diverticular disease, Ectopic preg ruptured, Ectopic , Ovarian cyst, Ovarian torsion Patient Discharge Departure Vital Signs/Condition Vital Signs First Documented: Result Date Time Pulse Ox 98 06/30 1251 B/P 93/54 06/30 1251 O2 Delivery Room air 06/30 1251 Temp 36.7 06/30 1251 Pulse 67 06/30 1251 Resp 16 06/30 1251 B/P Mean 80.8 06/30 1620 Last Documented: Result Date Time Pulse Ox 100 06/30 1620 B/P 103/70 06/30 1620 B/P Mean 80.8 06/30 162 Temp 36.9 06/30 162 Pulse 63 06/30 162 O2 Delivery Room air 06/30 1251 Resp 16 06/30 1251 All vital signs available at the time of this entry have been reviewed. Clinical Impression Clinical Impression Primary Impression: Left sided abdominal pain Secondary Impressions: Ovarian cyst Disposition Decision Discharge )( Discharged to Home Yes )( Time 1611 )( Date 06/30/24 Discharge/Care Plan (Auto) Prescriptions Current Visit Scripts IBUPROFEN (MOTRIN) 600 MG PO QID PRN PRN PAIN IBUPROFEN (MOTRIN) 600 MG PO QID PRN PRN PAIN #20 TABS ONDANSETRON ODT (ZOFRAN ODT) 4 MG PO Q6H PRN PRN NAUSEA/VOMITING ONDANSETRON ODT (ZOFRAN ODT) 4 MG PO Q6H PRN PRN NAUSEA/VOMITING #15 TABS Prescriptions Reviewed Risks, Benefits Patient Instructions Abdominal Pain, ED Ovarian Cyst Additional Instructions Currently no acute findings on the CT, provided you with a copy of all your results with the CT mentioned but compared to your imaging 9 years ago there might have been a liver mass there for follow-up outpatient if you have not done already so, 1. The examination and treatment that you have received has been on an emergency basis only and is not intended as an effort to provide complete medical care. It is impossible to recognize and treat all elements of an illness or injury in a single ER visit. 2. Thank you for allowing us to provide emergent medical care to you or your family member. We consider it a privilege to have served you during your illness or injury. 3. If you have received a prescription, please fill it TODAY and follow the instructions carefully. 4. Please seek medical attention or return to the ER immediately if your symptoms persist despite treatment (as applicable), if new symptoms develop, if your symptoms worsen or for any other concerns. Discharge Note I have spoken with the patient and/or caregivers. I have explained the patient's condition, diagnoses and treatment plan based on the information available to me at this time. I have answered the patient's and/or caregiver's questions and addressed any concerns. The patient and/or caregivers have as good an understanding of the patient's diagnosis, condition and treatment plan as can be expected at this point. The vital signs have been stable. The patient's condition is stable and appropriate for discharge from the emergency department. The patient will pursue further outpatient evaluation with the primary care physician or other designated or consulting physician as outlined in the discharge instructions. The patient and/or caregivers are agreeable to this plan of care and follow-up instructions have been explained in detail. The patient and/or caregivers have received these instructions in written format and have expressed an understanding of the discharge instructions. The patient and/or caregivers are aware that any significant change in condition or worsening of symptoms should prompt an immediate return to this or the closest emergency department or a call to 911. Malcom Garsia 06/30/241951: HPI-Abd Pain F Under 40 General Confirmed Patient Yes Physical Exam Vital Signs Review of Vital Signs Reviewed Interpretation Diagnostics Lab Results Interpretation Considerations Independ review imaging, Reviewed prior records Lab Imaging Statement Laboratory radiographic studies reviewed and considered in the medical decision-making. Patient Discharge Departure Vital Signs/Condition Condition Stable Discharge/Care Plan Referrals Provider Referral: Elmer Zapien MD Follow-Up: 1-2 Days Address: [address] [place] [address] Supervising Physician Note MidLv/Doc Saw Pt 2 I performed a substantive part of the MDM during the patient's E/M visit. I personally made or approved the documented management plan and acknowledge its risk of complications. My (ECG/X-Ray/US/CT) interpretation [imaging negative for acute pathology, possible intermittent torsion, cyst rupture, need op fu]. Management/test interpretation discussed with [MUNIR]. at 1819 at 1953 RPT #[id number] END OF REPORT [facility] 2024-05-26 17:55:00 Pt given printed and verbal discharge instructions regarding vomiting, viral URI with cough, encouraged hydration. Prescriptions provided. Pt verbalized understanding of instructions, pt awake alert oriented, resp reg unlabored, skin w/d, color appropriate for race, moves all ext well,pt encouraged to follow up with pcp. Advised to seek medical attention for new/prolonged/worsening of symptoms. No adverse reaction to meds given in ER noted upon discharge. Awake, alert oriented, resp reg unlabored, skin w/d, pt leaving amb with steady gait, in no apparent distress, accompanied by significant other. IR [facility] 2024-05-26 15:10:00 Patient came in with complaints of vomiting, sore throat, bilateral ear pain, headache, and nausea since yesterday. States she was seen at ER yesterday and swabbed for covid, flu, and strep but she left before the results were back. IR Pacheco RN [facility] 2024-05-26 15:02:00 [facility] Emergency Department Note Patient Name: Shalom Navarro Date of : 2000 24 year old female Treatment Room: [facility] Primary Care Physician: PATIENT DOES NOT HAVE A PCP Patient Escorted by: Self [9] Mode of Arrival: Personal means [1] EMS Treatment Prior to ED Arrival: Travel and Exposure Screening: Symptoms Does patient have any of these symptoms?: (not recorded) Exposure Screening Has patient had contact with someone with a communicable disease in the last month?: (not recorded) Diseases exposed to:: (not recorded) Is Patient ?: (not recorded) Exposure Date: (not recorded) Chief Complaint: Chief Complaint Patient presents with Vomiting Body Aches Nausea History of Present Illness: Very pleasant young lady presents for two days of cough productive for thick phlegm, mild sore throat, fever, and chills. History provided by: Patient Past Medical History/Immunizations: No past medical history on file. Allergies: No Known Allergies Past Social History: Substance & Sexual Activity No substance use or sexual activity history on file. Past Surgical History: No past surgical history on file. Review of Systems: Review of Systems Constitutional: Positive for chills and fever. Negative for activity change, appetite change, diaphoresis and fatigue. HENT: Positive for congestion and sore throat. Negative for ear discharge, ear pain, facial swelling, hearing loss, tinnitus, trouble swallowing and voice change. Eyes: Negative for photophobia, pain, discharge, redness, itching and visual disturbance. Respiratory: Positive for cough. Negative for apnea, choking, chest tightness, shortness of breath and stridor. Breasts: Negative for discharge. Cardiovascular: Negative for chest pain, palpitations and leg swelling. Gastrointestinal: Negative for abdominal distention, abdominal pain, blood in stool, diarrhea, nausea and vomiting. Genitourinary: Negative for dysuria, frequency, hematuria, flank pain, enuresis and difficulty urinating. Musculoskeletal: Negative for arthralgias, back pain, gait problem, joint swelling, myalgias, neck pain and neck stiffness. Skin: Negative for color change, pallor, rash and wound. Neurological: Negative for dizziness, syncope, facial asymmetry, speech difficulty, weakness, light-headedness and headaches. Psychiatric/Behavioral: Negative for agitation, confusion, hallucinations and self-injury. The patient is not nervous/anxious. Hematological: Negative for adenopathy, cold intolerance and heat intolerance. Does not bruise/bleed easily. Endocrine: Negative for cold intolerance, heat intolerance, polydipsia and polyphagia. Physical Exam: ED Triage Vitals [05/26/24 1510] Weight 44.5 kg (98 lb) Actual or estimated Estimated by patient/family report Height 1.524 m (5') BP 113/75 Pulse 95 Resp 15 Temp 37.1 ?C (98.8 ?F) Temp source Oral SpO2 99 % Measured on Room air Physical Exam Constitutional: General: She is not in acute distress. Appearance: She is well-developed. She is not ill-appearing, toxic-appearing or diaphoretic. HENT: Head: Normocephalic and atraumatic. Right Ear: External ear normal. Left Ear: External ear normal. Mouth/Throat: Mouth: Mucous membranes are moist. Pharynx: Oropharynx is clear. Posterior oropharyngeal erythema present. No oropharyngeal exudate. Eyes: General: No scleral icterus. Right eye: No discharge. Left eye: No discharge. Conjunctiva/sclera: Conjunctivae normal. Neck: Vascular: No carotid bruit. Trachea: No tracheal deviation. Cardiovascular: Rate and Rhythm: Normal rate and regular rhythm. Heart sounds: Normal heart sounds. Pulmonary: Effort: Pulmonary effort is normal. No respiratory distress. Breath sounds: Normal breath sounds. No stridor. No wheezing or rales. Abdominal: General: There is no distension. Palpations: Abdomen is soft. Tenderness: There is no abdominal tenderness. There is no guarding. Musculoskeletal: General: No tenderness or deformity. Normal range of motion. Cervical back: Normal range of motion and neck supple. No rigidity or tenderness. Lymphadenopathy: Cervical: No cervical adenopathy. Skin: General: Skin is warm. Coloration: Skin is not pale. Findings: No erythema or rash. Neurological: Mental Status: She is alert and oriented to person, place, and time. Motor: No abnormal muscle tone. Psychiatric: Behavior: Behavior normal. Thought Content: Thought content normal. Judgment: Judgment normal. Radiology: No orders to display Lab Results: Lab Results POCT TEST - Normal Result Value Ref Range POCT PREG Negative On board controls acceptable with C Line Yes POCT PREG LOT # [id number] POCT PREG TEST DATE 2025-06-20 RAPID STREP SCREEN FOR GROUP A - Normal Molecular Strep Negative Negative INFLUENZA A/B RSV COVID NAAT THROAT CULTURE EKG: If EKG completed, see Procedure Note. Orders and Treatments: Orders Placed This Encounter Procedures POCT Test Influenza A B RSV COVID NAAT Rapid Strep Screen For Group A Throat Culture Orders Placed This Encounter Medications metoclopramide HCl (REGLAN) tablet 10 mg ondansetron 4 mg disintegrating tablet benzonatate 100 mg capsule First Provider Eval: ED Events Date/Time Event User Comments 05/26/24 1540 Medical Screening Begins HOLDEN VALENCIA MD -- 05/26/24 1540 First Provider Evaluation HOLDEN VALENCIA MD -- ED COURSE Diagnosis/Impression as of 05/26/24 1737 Vomiting, unspecified vomiting type, unspecified whether nausea present Viral URI with cough Procedures: Procedures MDM: Medical Decision Making DDx incl strep, Covid, Flu, other viral URI, bronchitis, et al D/w pt results, rec plan of care and f/u, and red flags for return. Clinically c/w viral URI w/ pharyngitis; neg for Strep. Amount and/or Complexity of Data Reviewed Labs: ordered. Risk Prescription drug management. Flowsheet Documentation: Scoring Tools: No data recorded Disposition/Condition: ED Disposition ED Disposition Discharge Condition Stable Comment -- Discharge Medications: Patient's Medications START taking these medications BENZONATATE 100 MG CAPSULE Take 1 capsule by mouth 3 (three) times daily as needed for Cough. ONDANSETRON 4 MG DISINTEGRATING TABLET Take 1 tablet by mouth every 8 (eight) hours as needed for Nausea and Vomiting (N/V). CONTINUE taking these medications which have NOT CHANGED No medications on file START taking Modified Medications as Prescribed No medications on file STOP taking these medications No medications on file Follow-up: Electronically signed by: Holden Valencia MD 05/26/24 1737 [facility] 2020-11-14 13:36:00 [facility] ([facility]) OB Disch REPORT#:[id number] REPORT STATUS: Signed DATE:11/14/20 TIME: 1336 PATIENT: SHALOM NAVARRO UNIT #: [id number] ROOM/BED: [place] [id number] : 98 AGE: 20 SEX: F ATTEND: Elmer Zapien MD ADM AUTHOR: Elmer Zapien MD * ALL edits or amendments must be made on the electronic/computer document * Subjective Subjective Admission EGA: Weeks: 38 Days: 4 EGA at delivery (wks/days): 38 weeks (5d) Objective Physical Exam Lungs: unlabored breathing Discharge Summary General Assessment: nml progress Hospital course: spontaneous labor, spontaneous vag delivery, nml postop/ postpart care Discharge condition: stable Discharge to: Home/Self Care Discharge diagnosis: full-term uncomp delivery Discharge management: less than 30 mins Baby A: Vaginal delivery: spontaneous status: live born Gender: female 1 minute: 8 5 minutes: 9 Plan: routine care, discharge today Discharge Instructions Instructions: routine instr sheet given Diet: Resume Home Diet/Feeds Activity: Resume Normal Activity Additional discharge routines: None at 1337 RPT #:[id number] END OF REPORT [facility] 2020-11-14 13:35:00 [facility] ([facility]) OB Postpart Progr Note REPORT#:[id number] REPORT STATUS: Signed DATE:11/14/20 TIME: 1335 PATIENT: SHALOM NAVARRO UNIT #: [id number] ROOM/BED: [place] [address] : 98 AGE: 20 SEX: F ATTEND: Elmer Zapien MD ADM AUTHOR: Elmer Zapien MD * ALL edits or amendments must be made on the electronic/computer document * Subjective Subjective Admission EGA: Weeks: 38 Days: 4 EGA at delivery (wks/days): 38 weeks (5d) Status/Day: post (d2) Patient reports: Patient reports: Yes no complaints, Yes normal lochia, Yes pain management effective, Yes tolerating po well, Yes voiding well, Yes voiding without pain, Yes tolerating ambulation, Yes flatus Objective Nursing Documentation Review Nursing Data: The data set between the solid lines has been imported from nursing documentation. Any exceptions have been noted below under Provider comments. Feeding preference: Post hemorrhage risk score: Low Risk for Hemorrhage. Provider comments on imported nursing data: [] General VS: Vital Signs: Date Time Temp Pulse Resp B/P B/P Pulse O2 O2 Flow FiO2 Mean Ox Delivery Rate 11/14 0618 36.8 74 17 112/76 99 11/14 0030 36.7 68 12 90/57 98 11/13 1955 36.5 69 16 114/70 99 PATIENT WEIGHT: Weight (lb): 117 Weight (oz): Weight (kg): 53.07 Physical Exam Abdomen: soft, no abnormal tenderness, no guarding Uterus: involution appropriate, non-tender Fundus: firm, below the umbilicus Lochia: normal Lacerations: Perineal laceration(s): 1st Degree Lower extremities: Edema: none Ebenezer's sign: negative Calf tenderness: negative Diagnosis, Assessment Plan Diagnosis, Assessment Plan Assessment: nml progress Plan: routine care, discharge today at 1335 RPT #:[id number] END OF REPORT [facility] 2020-11-13 11:26:00 [facility] ([facility]) OB Postpart Progr Note REPORT#:[id number] REPORT STATUS: Signed DATE:11/13/20 TIME: 1126 PATIENT: SHALOM NAVARRO UNIT #: [id number] ROOM/BED: [place] [address] : 98 AGE: 20 SEX: F ATTEND: Elmer Zapien MD ADM AUTHOR: Elmer Zapien MD * ALL edits or amendments must be made on the electronic/computer document * Subjective Subjective Admission EGA: Weeks: 38 Days: 4 EGA at delivery (wks/days): 38 weeks (5d) Status/Day: post (d1) Patient reports: Patient reports: Yes no complaints, Yes normal lochia, Yes pain management effective, Yes tolerating po well, Yes voiding well, Yes voiding without pain, Yes tolerating ambulation, Yes flatus Objective Nursing Documentation Review Nursing Data: The data set between the solid lines has been imported from nursing documentation. Any exceptions have been noted below under Provider comments. Feeding preference: Post hemorrhage risk score: Low Risk for Hemorrhage. Provider comments on imported nursing data: [] General VS: Vital Signs: Date Time Temp Pulse Resp B/P B/P Pulse O2 O2 Flow FiO2 Mean Ox Delivery Rate 11/13 0718 36.7 59 17 95/58 97 11/13 0500 36.7 86 16 103/66 97 11/12 1950 36.7 80 16 103/69 98 PATIENT WEIGHT: Weight (lb): 117 Weight (oz): Weight (kg): 53.07 Physical Exam Abdomen: soft, no abnormal tenderness, no guarding Uterus: involution appropriate, non-tender Fundus: firm, below the umbilicus Lochia: normal Lacerations: Perineal laceration(s): 1st Degree Lower extremities: Edema: none Ebenezer's sign: negative Calf tenderness: negative Result Findings/Data: Laboratory Tests: 11/13 514 Hematology WBC (4.5 - 11.0 x10 3/uL) 13.5 H RBC (3.54 - 5.02 x10 6/uL) 3.08 L Hgb (11.0 - 15.0 g/dL) 9.5 L Hct (33.0 - 45.0 %) 29.3 L MCV (81.0 - 99.0 fL) 95.1 MCH (27.0 - 33.0 pg) 30.8 MCHC (33.0 - 37.0 g/dL) 32.4 L RDW (11.5 - 14.5 %) 13.5 Plt Count (150 - 400 x10 3/uL) 192 MPV (7.0 - 9.0 fL) 11.0 H Neut % (Auto) (56.0 - 77.0 %) 69.4 Lymph % (Auto) (14.0 - 32.0 %) 21.5 Dewitt % (Auto) (4.8 - 9.0 %) 7.7 Eos % (Auto) (0.3 - 3.7 %) 0.4 Baso % (Auto) (0.0 - 2.0 %) 0.3 Neut # (Auto) (2.0 - 7.6 x10 3/uL) 9.37 H Lymph # (Auto) (1.0 - 3.8 x10 3/uL) 2.90 Dewitt # (Auto) (0.1 - 0.8 x10 3/uL) 1.04 H Eos # (Auto) (0.0 - 0.2 x10 3/uL) 0.06 Baso # (Auto) (0.0 - 0.2 x10 3/uL) 0.04 Abs Immat Gran (auto) (0.00 - 0.03 x10 3/uL) 0.10 H Add Manual Diff NO Immature Gran % (0.0 - 2.0 %) 0.7 Nucleated RBC % (0 - 0 %) 0.0 Nucleated RBCs # (Man) (0.0 - 0.1 x10 3/uL) 0.00 Diagnosis, Assessment Plan Diagnosis, Assessment Plan Assessment: nml progress Plan: routine care at 1127 [facility] #:[id number] END OF REPORT [facility] 2020-11-12 08:39:00 [facility] DT History Physical REPORT#:[id number] REPORT STATUS: Signed DATE:11/12/20 TIME: 838 PATIENT: SHALOM NAVARRO UNIT #: [id number] ROOM/BED: [place] [address] : 98 AGE: 20 SEX: F ATTEND: Elmer Zapien MD ADM AUTHOR: Elmer Zapien MD * ALL edits or amendments must be made on the electronic/computer document * History Physical History Physical Please see Care Records and office H P at 1938 RPT #:[id number] END OF REPORT [facility] [facility] 2020-11-12 08:37:00 [facility] ([facility]) OB Delivery Note REPORT#:[id number] REPORT STATUS: Signed DATE:11/12/20 TIME: 0837 PATIENT: SHALOM NAVARRO UNIT #: [id number] ROOM/BED: [place] [id number] : 98 AGE: 20 SEX: F ATTEND: Elmer Zapien MD ADM AUTHOR: Elmer Zapien MD * ALL edits or amendments must be made on the electronic/computer document * OB Delivery Nursing Documentation Review Nursing data: The data set between the solid lines has been imported from nursing documentation. Any exceptions have been noted below under Provider comments. _ ROM date: 11/12/20 ROM time: 0808 Membranes rupture method: SROM Amniotic fluid color: Clear Amniotic fluid amount: Steroids prior to arrival: Antibiotic prophylaxis given: Post hemorrhage risk score: Medium Risk for Hemorrhage. Delivery date A: 11/12/20 Delivery time infant A: 0808 Birthweight (gm) infant A: 2700 Weight (lb) A: Weight (oz) infant A: Gender infant A: Female 1 minute infant A: 8 5 minutes A: 9 10 minutes A: Cord pH obtained infant A: Vacuum time infant A: Vacuum # pulls A: Vacuum # popoffs infant A: QBL at delivery: __ Provider comments on imported nursing data: [] Pre-delivery Admission EGA: Weeks: 38 Days: 4 EGA at delivery (wks/days): 38 weeks (5d) Admission indication: Non reassurring status Steroids Prior to Delivery Steroids prior to delivery: yes Baby A Information Baby A information Delivery date: 11/12/20 status: live born Gender: female 1 minute: 8 5 minutes: 9 Presentation: vertex Vaginal Delivery Vaginal delivery: Labor: induced Medications/Devices used: cervidil Vaginal delivery: spontaneous Amniotic fluid: clear Anesthesia type: epidural anesthesia Episiotomy: none Laceration repair: 2-0 suture Placenta: spontaneous, intact, sent to pathology Post delivery meds used: oxytocin Count: correct Mother's condition: mother stable 's condition: stable in room Lacerations: Perineal laceration(s): 1st Degree Blood Loss/Details Blood loss at delivery: 200 at 0839 RPT #:[id number] END OF REPORT [facility] 2020-11-11 15:19:00 [facility] DANYELL Evaluation Note REPORT#:[id number] REPORT STATUS: Signed DATE:11/11/20 TIME: 151 PATIENT: SHALOM NAVARRO UNIT #: [id number] ROOM/BED: [place] [address] : 98 AGE: 20 SEX: F ATTEND: Julissa Earl DO ADM DT: AUTHOR: Julissa Earl DO * ALL edits or amendments must be made on the electronic/computer document * DANYELL History Chief complaint: discomfort, nausea HPI: 20 y/o EDC 8/4 at 38 w 4 day presents c/o decreased mvmt since yesterday as well as nauseated and pain d/t a labial abcess that was seen yesterday in our ER. She denies leaking or bleeding, but does have cxn. VE last was 1 cm. She was dx with labial abcess and Rx Keflex, which she takes w food, as well as warm compresses which she has done 5/ 24 hours. She did get celestone when she had cxn. history: : 1 Current : EDC: 11/21/20 EGA (weeks/days): 38 weeks Steroids prior to delivery: yes Conditions of : pre-term labor Labs: Blood type: unknown Past medical history: denies PMH Past surgical history: denies PSH Social history: unemployed, single, no alcohol use, no tobacco use, no drug use Family history Relation not specified for: Family History: Unknown Medications: Home Medications: Medication Dose/Rte/Freq Days Qty Entered Last Max Daily Dose Reviewed PNV WITH FE 1 TAB PO DAILY 09/27/20 FUMARATE/FA 0050 () Strength: 1 EACH TAB CEPHALEXIN (KEFLEX) 500 MG PO Q6H 28 11/10/20 Strength: 500 MG CAP 1339 Current Hospital Medications: Electrolytic, Caloric, And Miguel Angel Sig/Prisca Start time Last Medication Dose Route Stop Time Status Admin Lactated Ringer's 1,000 ML BOLUS 11/11 1530 AC (LACTATED RINGERS) IV 11/11 1630 Gastrointestinal Drugs Sig/Prisca Start time Last Medication Dose Route Stop Time Status Admin Ondansetron HCl 4 MG ONCE ONE 11/11 1530 AC (ZOFRAN) IV 11/11 1531 Allergies Coded Allergies: No Known Allergies (11/11/20) Review of Systems Constitutional: Denies: fever. ENT: Denies: sore throat. Respiratory: Denies: non productive cough. GI: Reports: nausea. Denies: diarrhea, vomiting. : Reports: . Denies: vaginal bleeding. Neuro: lightheaded. Denies: headache. Objective General VS: Last Documented: Result Date Time Pulse Ox 99 11/11 1459 Pulse 120 11/11 1459 Temp 98.8 11/11 1444 B/P Mean 72.0 11/11 1433 B/P 93/62 11/11 1433 Vital Signs Date Temp Pulse Resp B/P B/P Mean Pulse Ox FiO2 11/11 98.8 104-137 93/62 72.0 96-99 PATIENT WEIGHT: Weight (lb): Weight (oz): Weight (kg): Physical Exam HEENT: normocephalic w/o injury, no scleral icterus Lungs: unlabored breathing Breasts: deferred Neuro: Exam: alert, oriented x3, normal speech Abdomen: gravid, soft, no abnormal tenderness, no guarding, no rebound tenderness Genitourinary: no raphael, a 6x4 cm right labial abcess, erythema but no "head" of abcess seen. Uterine activity: Monitor: toco Frequency (description): irritability, irregular Intensity: mild Pelvic exam: Pelvis clinically adequate: yes, inlet appears appropriate, pubic bone config appropr, no midpelvic contraction Vulvar lesions: no evidence herpetic les, no evidence of other STD, right labial abcess Vagina: normal, non-septated, w/o apparent lesions Cervical/ exam: Dilatation (cm): 1 Effacement (%): 70 station: - 3 FHR evaluation: Baseline: 130 bpm Variability: moderate 6-25 bpm Accelerations: 15 X 15 Decelerations: none FHR category: category 1 Membranes: Membranes: Intact Results Findings/Data: Laboratory Tests: 11/11 1445 Hematology WBC (4.5 - 11.0 x10 3/uL) 11.2 H RBC (3.54 - 5.02 x10 6/uL) 3.52 L Hgb (11.0 - 15.0 g/dL) 10.8 L Hct (33.0 - 45.0 %) 31.9 L MCV (81.0 - 99.0 fL) 90.6 MCH (27.0 - 33.0 pg) 30.7 MCHC (33.0 - 37.0 g/dL) 33.9 RDW (11.5 - 14.5 %) 13.4 Plt Count (150 - 400 x10 3/uL) 240 MPV (7.0 - 9.0 fL) 10.3 H Neut % (Auto) (56.0 - 77.0 %) 77.1 H Lymph % (Auto) (14.0 - 32.0 %) 12.6 L Dewitt % (Auto) (4.8 - 9.0 %) 8.5 Eos % (Auto) (0.3 - 3.7 %) 0.3 Baso % (Auto) (0.0 - 2.0 %) 0.2 Neut # (Auto) (2.0 - 7.6 x10 3/uL) 8.60 H Lymph # (Auto) (1.0 - 3.8 x10 3/uL) 1.40 Dewitt # (Auto) (0.1 - 0.8 x10 3/uL) 0.95 H Eos # (Auto) (0.0 - 0.2 x10 3/uL) 0.03 Baso # (Auto) (0.0 - 0.2 x10 3/uL) 0.02 Abs Immat Gran (auto) (0.00 - 0.03 x10 3/uL) 0.15 H Add Manual Diff NO Immature Gran % (0.0 - 2.0 %) 1.3 Nucleated RBC % (0 - 0 %) 0.0 Nucleated RBCs # (Man) (0.0 - 0.1 x10 3/uL) 0.00 Diagnosis, Assessment Plan Diagnosis, Assessment Plan Free Text A P: 20 y/o P0 at 38 w 4 day c/o decreased mvmt labial abcess - on PO ABX and warm compress nausea h/o cxn, s/p celestone BPP 'IV fluids Labs Zofran prn. Pt states she has IOL for Thursday. RN notes that is not scheduled in the books. at 1525 RPT #:[id number] END OF REPORT [facility] 2020-11-11 15:19:00 [facility] ([facility]) DANYELL Evaluation Note REPORT#:[id number] REPORT STATUS: Signed DATE:11/11/20 TIME: 1519 PATIENT: SHALOM NAVARRO UNIT #: [id number] ROOM/BED: [place] [address] : 98 AGE: 20 SEX: F ATTEND: Julissa Earl DO ADM DT: AUTHOR: Julissa Earl DO * ALL edits or amendments must be made on the electronic/computer document * See Addendum DANYELL History Chief complaint: discomfort, nausea HPI: 20 y/o EDC 8/4 at 38 w 4 day presents c/o decreased mvmt since yesterday as well as nauseated and pain d/t a labial abcess that was seen yesterday in our ER. She denies leaking or bleeding, but does have cxn. VE last was 1 cm. She was dx with labial abcess and Rx Keflex, which she takes w food, as well as warm compresses which she has done 5/ 24 hours. She did get celestone when she had cxn. history: : 1 Current : EDC: 11/21/20 EGA (weeks/days): 38 weeks Steroids prior to delivery: yes Conditions of : pre-term labor Labs: Blood type: unknown Past medical history: denies PMH Past surgical history: denies PSH Social history: unemployed, single, no alcohol use, no tobacco use, no drug use Family history Relation not specified for: Family History: Unknown Medications: Home Medications: Medication Dose/Rte/Freq Days Qty Entered Last Max Daily Dose Reviewed PNV WITH FE 1 TAB PO DAILY 09/27/20 FUMARATE/FA 0050 () Strength: 1 EACH TAB CEPHALEXIN (KEFLEX) 500 MG PO Q6H 28 11/10/20 Strength: 500 MG CAP 1339 Current Hospital Medications: Electrolytic, Caloric, And Miguel Angel Sig/Prisca Start time Last Medication Dose Route Stop Time Status Admin Lactated Ringer's 1,000 ML BOLUS 11/11 1530 AC (LACTATED RINGERS) IV 11/11 1630 Gastrointestinal Drugs Sig/Prisca Start time Last Medication Dose Route Stop Time Status Admin Ondansetron HCl 4 MG ONCE ONE 11/11 1530 AC (ZOFRAN) IV 11/11 1531 Allergies Coded Allergies: No Known Allergies (11/11/20) Review of Systems Constitutional: Denies: fever. ENT: Denies: sore throat. Respiratory: Denies: non productive cough. GI: Reports: nausea. Denies: diarrhea, vomiting. : Reports: . Denies: vaginal bleeding. Neuro: lightheaded. Denies: headache. Objective General VS: Last Documented: Result Date Time Pulse Ox 99 11/11 1459 Pulse 120 11/11 1459 Temp 98.8 11/11 1444 B/P Mean 72.0 11/11 1433 B/P 11/11 1433 Vital Signs Date Temp Pulse Resp B/P B/P Mean Pulse Ox FiO2 11/11 98.8 104-137 72.0 96-99 PATIENT WEIGHT: Weight (lb): Weight (oz): Weight (kg): Physical Exam HEENT: normocephalic w/o injury, no scleral icterus Lungs: unlabored breathing Breasts: deferred Neuro: Exam: alert, oriented x3, normal speech Abdomen: gravid, soft, no abnormal tenderness, no guarding, no rebound tenderness Genitourinary: no raphael, a 6x4 cm right labial abcess, erythema but no "head" of abcess seen. Uterine activity: Monitor: toco Frequency (description): irritability, irregular Intensity: mild Pelvic exam: Pelvis clinically adequate: yes, inlet appears appropriate, pubic bone config appropr, no midpelvic contraction Vulvar lesions: no evidence herpetic les, no evidence of other STD, right labial abcess Vagina: normal, non-septated, w/o apparent lesions Cervical/ exam: Dilatation (cm): 1 Effacement (%): 70 station: - 3 FHR evaluation: Baseline: 130 bpm Variability: moderate 6-25 bpm Accelerations: 15 X 15 Decelerations: none FHR category: category 1 Membranes: Membranes: Intact Results Findings/Data: Laboratory Tests: 11/11 1445 Hematology WBC (4.5 - 11.0 x10 3/uL) 11.2 H RBC (3.54 - 5.02 x10 6/uL) 3.52 L Hgb (11.0 - 15.0 g/dL) 10.8 L Hct (33.0 - 45.0 %) 31.9 L MCV (81.0 - 99.0 fL) 90.6 MCH (27.0 - 33.0 pg) 30.7 MCHC (33.0 - 37.0 g/dL) 33.9 RDW (11.5 - 14.5 %) 13.4 Plt Count (150 - 400 x10 3/uL) 240 MPV (7.0 - 9.0 fL) 10.3 H Neut % (Auto) (56.0 - 77.0 %) 77.1 H Lymph % (Auto) (14.0 - 32.0 %) 12.6 L Dewitt % (Auto) (4.8 - 9.0 %) 8.5 Eos % (Auto) (0.3 - 3.7 %) 0.3 Baso % (Auto) (0.0 - 2.0 %) 0.2 Neut # (Auto) (2.0 - 7.6 x10 3/uL) 8.60 H Lymph # (Auto) (1.0 - 3.8 x10 3/uL) 1.40 Dewitt # (Auto) (0.1 - 0.8 x10 3/uL) 0.95 H Eos # (Auto) (0.0 - 0.2 x10 3/uL) 0.03 Baso # (Auto) (0.0 - 0.2 x10 3/uL) 0.02 Abs Immat Gran (auto) (0.00 - 0.03 x10 3/uL) 0.15 H Add Manual Diff NO Immature Gran % (0.0 - 2.0 %) 1.3 Nucleated RBC % (0 - 0 %) 0.0 Nucleated RBCs # (Man) (0.0 - 0.1 x10 3/uL) 0.00 Diagnosis, Assessment Plan Diagnosis, Assessment Plan Free Text A P: 20 y/o P0 at 38 w 4 day c/o decreased mvmt labial abcess - on PO ABX and warm compress nausea h/o cxn, s/p celestone BPP 'IV fluids Labs Zofran prn. Pt states she has IOL for Thursday. RN notes that is not scheduled in the books. at 1525 Addendum 1: 11/11/20 1726 by Julissa Earl DO BPP 6/8, -2 breathing. IV fluids provided Labs wnl ABIOLA 18 cm, vertex D/w Dr. Zapien that he will admit pt and presume care. at 1727 RPT #:[id number] END OF REPORT [facility] 2020-11-11 15:01:00 [facility] ([facility]) OB Medical Screening Exam REPORT#:[id number] REPORT STATUS: Signed DATE:11/11/20 TIME: 1501 PATIENT: SHALOM NAVARRO UNIT #: [id number] ROOM/BED: [id number] : 98 AGE: 20 SEX: F ATTEND: Julissa Earl DO ADM DT: AUTHOR: Julissa Earl DO * ALL edits or amendments must be made on the electronic/computer document * Medical Screening Exam Provider Attestation Comments: Pt triaged at 1500. at 1502 RPT #:[id number] END OF REPORT [facility] 2020-11-10 13:38:00 [facility] ([facility]) EMERGENCY PROVIDER REPORT REPORT#:[id number] REPORT STATUS: Signed DATE:11/10/20 TIME: 1338 PATIENT: SHALOM NAVARRO UNIT #: [id number] ROOM/BED: AGE: 20 SEX: F PCP PHYS: Elmer Zapien MD SERVICE AUTHOR: Wilda Jeffers * ALL edits or amendments must be made on the electronic/computer document * HPI-Rash/Abscess/Cellulitis Free Text HPI Notes Free Text HPI Notes 20-year-old female 30 weeks EGA presents to ED with swelling to the right labia majora by 2 days. She reports mild redness with inflammation without purulent drainage. No fevers, chills, nausea, vomiting. Patient is to be induced in 2 days. General Confirmed Patient Yes Initial Greet Date/Time 11/10/20 1155 Presentation Chief Complaint Red area, Tender/swollen area Hx Obtained From Patient Onset Occurred Days ago (2) Review of Systems ROS Statements All systems rev neg except as marked. Free Text ROS Notes Free Text ROS Notes Per HPI Past Medical History - Adult Stated Complaint 38 WKS. ABCESS TO VAGINALAREA Allergies Coded Allergies: No Known Allergies (10/24/20) Home Medications Reported Medications PNV WITH FE FUMARATE/FA () 1 TAB PO DAILY Pt reports no significant: Past medical history, Past surgical history, Family history, Social history Additional Medical History Ovarian cysts Additional Surgical History Ovarian cyst removal Smoking status: Smoking status for patients 13 years old or older: Never Smoker Physical Exam Vital Signs Vital Signs First Documented: Result Date Time Pulse Ox 96 11/10 1232 B/P 122/79 11/10 1232 B/P Mean 93 11/10 1232 O2 Delivery Room air 11/10 1232 Temp 37.0 11/10 1232 Pulse 110 11/10 1232 Resp 18 11/10 1232 Last Documented: Result Date Time Pulse Ox 96 11/10 1232 B/P 122/79 11/10 1232 B/P Mean 93 11/10 1232 O2 Delivery Room air 11/10 1232 Temp 37.0 11/10 1232 Pulse 110 11/10 1232 Resp 18 11/10 1232 Review of Vital Signs Reviewed Free Text PE Notes Free Text PE Notes Gen: Well appearing, well hydrated, cooperative Head: Normocephalic, atraumatic Eyes: PERRLA, EOMI, Anicteric sclera, No conjunctival injection or exudate Throat: Airway patent, mucous membranes Neck: FROM, no midline TTP or meningismus Lungs: CTAB no R/R/W, good air movement. No stridor or accessory muscle use. No chest wall TTP or crepitus Heart: Initially tachycardic but now in the 80s. No m/g/r. No peripheral edema Abd: Gravid nontender uterus with good movement Ext: FROM BUE/LE. No swelling or deformity. Calves supple bilaterally. 2+ distal pulses, NVI Neuro: cranial nerves 2 through 12 grossly intact and no x3, Female : Right labia majora with 1 x 1 cm area of induration with tenderness to palpation deep to the subcutaneous tissue. No fluctuance or drainage. Mild surrounding erythema to the labia majora. No evidence of Bartholin's abscess. Re-Evaluation MDM Free Text MDM Notes Free Text MDM Notes delay in exam 2/2 no bed available for exam Re-Evaluation/Progress Re-Evaluation/Progress Text/Dict Note Patient is scheduled to be induced in 3 days. She is hesitant for I D. Is not a Bartholin's abscess. It is small indurated area on the outside of the right labia majora. I she has surrounding cellulitis of the labia that is not indurated. Conservative management so close to delivery is definitely an option , but she may still require I D by gynecology. Her OB is Dr. Mar. Will DC home with Keflex and warm compresses with close OB follow-up. Acute ER return precautions Time of Re-Eval 1337 Re-Eval Status Unchanged ED Course Medication(s) Ordered Medication(s) Ordered: Cardiovascular Drugs Sig/Prisca Start time Last Medication Dose Route Stop Time Status Admin Lidocaine HCl 5 ML X1ED STA 11/10 1156 DC LOCAL 11/10 1157 Patient Discharge Departure Vital Signs/Condition Vital Signs First Documented: Result Date Time Pulse Ox 96 11/10 1232 B/P 122/79 11/10 1232 B/P Mean 93 11/10 1232 O2 Delivery Room air 11/10 1232 Temp 37.0 11/10 1232 Pulse 110 11/10 1232 Resp 18 11/10 1232 Last Documented: Result Date Time Pulse Ox 96 11/10 1232 B/P 122/79 11/10 1232 B/P Mean 93 11/10 1232 O2 Delivery Room air 11/10 1232 Temp 37.0 11/10 1232 Pulse 110 11/10 1232 Resp 18 11/10 1232 All vital signs available at the time of this entry have been reviewed. Clinical Impression Clinical Impression Primary Impression: Labial abscess Disposition Decision Discharge )( Discharged to Home Yes )( Time 133 )( Date 11/10/20 Discharge/Care Plan Counseled Regarding Diagnosis, Medication changes, Prescriptions, Need for follow-up, When to return to ED (Auto) Prescriptions Current Visit Scripts CEPHALEXIN (KEFLEX) 500 MG PO Q6H CEPHALEXIN (KEFLEX) 500 MG PO Q6H #28 CAPS Prescriptions Reviewed Risks, Benefits, Alternative treatment Patient Instructions ED Abscess Antibiotic ... Additional Instructions Return to ER if severe pain, fever greater than 102, worsening symptom Referrals Elmer Zapien MD (PCP/Family) Discharge Note I have spoken with the patient and/or caregivers. I have explained the patient's condition, diagnoses and treatment plan based on the information available to me at this time. I have answered the patient's and/or caregiver's questions and addressed any concerns. The patient and/or caregivers have as good an understanding of the patient's diagnosis, condition and treatment plan as can be expected at this point. The vital signs have been stable. The patient's condition is stable and appropriate for discharge from the emergency department. The patient will pursue further outpatient evaluation with the primary care physician or other designated or consulting physician as outlined in the discharge instructions. The patient and/or caregivers are agreeable to this plan of care and follow-up instructions have been explained in detail. The patient and/or caregivers have received these instructions in written format and have expressed an understanding of the discharge instructions. The patient and/or caregivers are aware that any significant change in condition or worsening of symptoms should prompt an immediate return to this or the closest emergency department or a call to 911. at 1348 RPT #:[id number] END OF REPORT [facility] 2020-11-10 13:38:00 [facility] ([facility]) EMERGENCY PROVIDER REPORT REPORT#:[id number] REPORT STATUS: Signed DATE:11/10/20 TIME: 1338 PATIENT: SHALOM NAVARRO UNIT #: [id number] ROOM/BED: AGE: 20 SEX: F PCP PHYS: Elmer Zapien MD SERVICE AUTHOR: Wilda Jeffers * ALL edits or amendments must be made on the electronic/computer document * Wilda Jeffers 11/10/20 1338: HPI-Rash/Abscess/Cellulitis Free Text HPI Notes Free Text HPI Notes 20-year-old female 30 weeks EGA presents to ED with swelling to the right labia majora by 2 days. She reports mild redness with inflammation without purulent drainage. No fevers, chills, nausea, vomiting. Patient is to be induced in 2 days. General Confirmed Patient Yes Initial Greet Date/Time 11/10/20 1155 Presentation Chief Complaint Red area, Tender/swollen area Hx Obtained From Patient Onset Occurred Days ago (2) Review of Systems ROS Statements All systems rev neg except as marked. Free Text ROS Notes Free Text ROS Notes Per HPI Past Medical History - Adult Stated Complaint 38 WKS. ABCESS TO VAGINALAREA Allergies Coded Allergies: No Known Allergies (10/24/20) Home Medications Reported Medications PNV WITH FE FUMARATE/FA () 1 TAB PO DAILY Pt reports no significant: Past medical history, Past surgical history, Family history, Social history Additional Medical History Ovarian cysts Additional Surgical History Ovarian cyst removal Smoking status: Smoking status for patients 13 years old or older: Never Smoker Physical Exam Vital Signs Vital Signs First Documented: Result Date Time Pulse Ox 96 11/10 1232 B/P 122/79 11/10 1232 B/P Mean 93 11/10 1232 O2 Delivery Room air 11/10 1232 Temp 37.0 11/10 1232 Pulse 110 11/10 1232 Resp 18 11/10 1232 Last Documented: Result Date Time Pulse Ox 96 11/10 1232 B/P 122/79 11/10 1232 B/P Mean 93 11/10 1232 O2 Delivery Room air 11/10 1232 Temp 37.0 11/10 1232 Pulse 110 11/10 1232 Resp 18 11/10 1232 Review of Vital Signs Reviewed Free Text PE Notes Free Text PE Notes Gen: Well appearing, well hydrated, cooperative Head: Normocephalic, atraumatic Eyes: PERRLA, EOMI, Anicteric sclera, No conjunctival injection or exudate Throat: Airway patent, mucous membranes Neck: FROM, no midline TTP or meningismus Lungs: CTAB no R/R/W, good air movement. No stridor or accessory muscle use. No chest wall TTP or crepitus Heart: Initially tachycardic but now in the 80s. No m/g/r. No peripheral edema Abd: Gravid nontender uterus with good movement Ext: FROM BUE/LE. No swelling or deformity. Calves supple bilaterally. 2+ distal pulses, NVI Neuro: cranial nerves 2 through 12 grossly intact and no x3, Female : Right labia majora with 1 x 1 cm area of induration with tenderness to palpation deep to the subcutaneous tissue. No fluctuance or drainage. Mild surrounding erythema to the labia majora. No evidence of Bartholin's abscess. Re-Evaluation MDM Free Text MDM Notes Free Text MDM Notes delay in exam 2/2 no bed available for exam Re-Evaluation/Progress Re-Evaluation/Progress Text/Dict Note Patient is scheduled to be induced in 3 days. She is hesitant for I D. Is not a Bartholin's abscess. It is small indurated area on the outside of the right labia majora. I she has surrounding cellulitis of the labia that is not indurated. Conservative management so close to delivery is definitely an option , but she may still require I D by gynecology. Her OB is Dr. Henderson's. Will DC home with Keflex and warm compresses with close OB follow-up. Acute ER return precautions Time of Re-Eval 1338 Re-Eval Status Unchanged ED Course Medication(s) Ordered Medication(s) Ordered: Cardiovascular Drugs Sig/Prisca Start time Last Medication Dose Route Stop Time Status Admin Lidocaine HCl 5 ML X1ED STA 11/10 1156 DC LOCAL 11/10 1157 Patient Discharge Departure Vital Signs/Condition Vital Signs First Documented: Result Date Time Pulse Ox 96 11/10 1232 B/P 122/79 11/10 1232 B/P Mean 93 11/10 1232 O2 Delivery Room air 11/10 1232 Temp 37.0 11/10 1232 Pulse 110 11/10 1232 Resp 18 11/10 1232 Last Documented: Result Date Time Pulse Ox 96 11/10 1232 B/P 122/79 11/10 1232 B/P Mean 93 11/10 1232 O2 Delivery Room air 11/10 1232 Temp 37.0 11/10 1232 Pulse 110 11/10 1232 Resp 18 11/10 1232 All vital signs available at the time of this entry have been reviewed. Clinical Impression Clinical Impression Primary Impression: Labial abscess Disposition Decision Discharge )( Discharged to Home Yes )( Time 133 )( Date 11/10/20 Discharge/Care Plan Counseled Regarding Diagnosis, Medication changes, Prescriptions, Need for follow-up, When to return to ED (Auto) Prescriptions Current Visit Scripts CEPHALEXIN (KEFLEX) 500 MG PO Q6H CEPHALEXIN (KEFLEX) 500 MG PO Q6H #28 CAPS Prescriptions Reviewed Risks, Benefits, Alternative treatment Patient Instructions ED Abscess Antibiotic ... Additional Instructions Return to ER if severe pain, fever greater than 102, worsening symptom Referrals Elmer Zapien MD (PCP/Family) Discharge Note I have spoken with the patient and/or caregivers. I have explained the patient's condition, diagnoses and treatment plan based on the information available to me at this time. I have answered the patient's and/or caregiver's questions and addressed any concerns. The patient and/or caregivers have as good an understanding of the patient's diagnosis, condition and treatment plan as can be expected at this point. The vital signs have been stable. The patient's condition is stable and appropriate for discharge from the emergency department. The patient will pursue further outpatient evaluation with the primary care physician or other designated or consulting physician as outlined in the discharge instructions. The patient and/or caregivers are agreeable to this plan of care and follow-up instructions have been explained in detail. The patient and/or caregivers have received these instructions in written format and have expressed an understanding of the discharge instructions. The patient and/or caregivers are aware that any significant change in condition or worsening of symptoms should prompt an immediate return to this or the closest emergency department or a call to 911. Nilton Gastelum 11/11/20 0744: Patient Discharge Departure Supervising Physician Note MidLv Saw Pt Alone I have reviewed the PA/CLIMATOLOGY PROFESSOR's note and plan of care. I was available for consultation as needed at all times during the patient's visit in the emergency department. I agree with the clinical impression, plan and disposition. at 1348 at 0744 RPT #:[id number] END OF REPORT [facility] 2020-11-08 00:11:00 [facility] ([facility] OB Triage Visit REPORT#:[id number] REPORT STATUS: Signed DATE:11/08/20 TIME: 0011 PATIENT: SHALOM NAVARRO UNIT #: [id number] ROOM/BED: : 98 AGE: 20 SEX: F ATTEND: Taisha Edouard MD ADM AUTHOR: Taisha Edouard MD * ALL edits or amendments must be made on the electronic/computer document * Subjective Subjective Patient reports: contractions History Nursing Documentation Review Nursing data: The data set between the solid lines has been imported from nursing documentation. Any exceptions have been noted below under Provider comments. Current data Steroids prior to arrival: ROM date: ROM time: EDC date: 11/21/20 Gestational age (labor triage): Post hemorrhage risk score: Prior history : 1 Para: 0 Term: : Abortions spontaneous: Abortions induced: Living children: Ectopic: Stillbirths: Live births: deaths: Number of previous C/S: Reported maternal labs/data Blood type: Rh type: Rubella: Hepatitis B: HIV exposure test: VDRL: Group B beta strep: Done, result unknown Rho(D) immune globulin this preg: Monitor mode - UA: Feeding preference: Provider comments on imported nursing data: [] Chief complaint Chief complaint: evaluate for labor HPI: Note: Visit date 11/06/20 20 yo at 37.6 weeks presents with cramping. Intact. No vb. Good fm. Unclear what contractions feel like. Unremarkable to date. history: : 1 Term: 0 Current Current : EGA (weeks/days): 35 weeks (37.6) Past history Past medical history: denies PMH Past surgical history: denies PSH Social history: no alcohol use, no tobacco use Family history Relation not specified for: Family History: Unknown Medications: Home Medications: Medication Dose/Rte/Freq Days Qty Entered Last Max Daily Dose Reviewed PNV WITH FE 1 TAB PO DAILY 09/27/20 11/06/20 FUMARATE/FA 2820 4746 () Strength: 1 EACH TAB Allergies Coded Allergies: No Known Allergies (10/24/20) Review of Systems Constitutional: Denies: chills, fever. Respiratory: Denies: non productive cough, productive cough (sputum), SOB. Cardiovascular: Denies: chest pain, edema. GI: Denies: nausea, vomiting. : Reports: . Denies: vaginal bleeding, vaginal discharge. Musculoskeletal: other (crmaping). Neuro: Denies: dizziness, headache, vision change. Objective General VS: Last Documented: Result Date Time Pulse Ox 99 11/07 1831 Pulse 104 11/07 1831 B/P 121/75 11/06 1828 Temp 97.9 11/06 1829 Resp 18 11/06 182 PATIENT WEIGHT: Weight (lb): 117 Weight (oz): Weight (kg): 53.07 Notes: Gen: well appearing gravid female in NAD Physical Exam HEENT: normocephalic w/o injury Lungs: unlabored breathing Neuro: Exam: alert, oriented x3, normal speech Abdomen: gravid, soft, no abnormal tenderness, no guarding Uterine activity: Monitor: toco Frequency (description): irregular Cervical/ exam: Dilatation (cm): 1 Effacement (%): 60 station: - 4 Membranes: Membranes: Intact Lower extremities: Edema: none Additional comments: Category 1 strip wth good variability and no decels Diagnosis, Assessment Plan Diagnosis, Assessment Plan Free text A P: A/P 20 yo at 37.6 weeks with false labor Cervix remains unchanged from prior exams Reviewed kick counts and labor precautions. Reviewed what to expect with the pain of contractions. All questions answered. at 0017 [facility] #:[id number] END OF REPORT [facility] 2020-10-28 19:01:00 [id number] [place] [address] PATIENT NAME: SHALOM NAVARRO ADMIT DATE: 09/27/20 ACCOUNT NO: [id number] ROOM NO: [facility] AGE: 20 REPORT TYPE: DISCHARGE SUMMARY SEX: F ADMITTING PHYSICIAN:Elmer Zapien MD ATTENDING PHYSICIAN:Elmer Zapien MD ADMISSION DATE: 09/27/2020 DISCHARGE DATE: 09/28/2020 DISCHARGE DIAGNOSIS: Intrauterine at 32 weeks with contractions. CONDITION: Stable. DIET: Regular. ACTIVITY: Pelvic rest for 1 week. MEDICATIONS: See reconciliation list. HOSPITAL COURSE: The patient was admitted for contractions and was started on IV hydration and observed for further progression of labor. The patient's contractions resolved with hydration and cervix remained stable and was discharged home the following day with a 1 week followup at the office. Dictated By: Elmer Zapien MD WT: DS:TEJA/MOLLY/BEVERLY Conf#: [id number]/DID#: [id number] Authenticated by Elmer Zapien MD On 10/29/2020 09:35:16 AM at 0935 PATIENT NAME: SHALOM NAVARRO [facility] 2020-10-24 22:37:00 [facility] DANYELL Evaluation Note REPORT#:[id number] REPORT STATUS: Signed DATE:10/24/20 TIME: 2236 PATIENT: SHALOM NAVARRO UNIT #: [id number] ROOM/BED: [place] [id number] : 98 AGE: 20 SEX: F ATTEND: Julissa Earl DO ADM DT: AUTHOR: Julissa Earl DO * ALL edits or amendments must be made on the electronic/computer document * DANYELL History Chief complaint: uterine contractions HPI: 20 y/o EDC 8/4 at 36 week here for cxn and low back pain, vaginal pain worse w walking. No bleeding, unsure if leaking x 1 month that noticed at times soaking underwear and pad. Good mvmt. Saw her OB today, the RN, and was told to come if more cxn. history: : 1 Current : EDC: 11/21/20 EGA (weeks/days): 36 weeks Conditions of : pre-term labor Labs: Blood type: unknown Past medical history: denies PMH Past surgical history: diagnostic lap, ovarian cyst Social history: unemployed, single, no alcohol use, no tobacco use, no drug use Family history Relation not specified for: Family History: Unknown Medications: Home Medications: Medication Dose/Rte/Freq Days Qty Entered Last Max Daily Dose Reviewed PNV WITH FE 1 TAB PO DAILY 09/27/20 FUMARATE/FA 0050 () Strength: 1 EACH TAB Allergies Coded Allergies: No Known Allergies (10/24/20) Review of Systems Constitutional: Denies: fever. ENT: Denies: sore throat. Respiratory: Denies: non productive cough. GI: Denies: nausea, vomiting. : Reports: . Denies: vaginal bleeding. Objective General VS: Last Documented: Result Date Time Pulse Ox 100 10/25 2147 Pulse 85 10/25 2147 Temp 98.2 10/24 2124 Resp 16 10/24 2124 B/P Mean 85.0 10/24 2122 B/P 114/65 10/24 2122 Vital Signs Date Temp Pulse Resp B/P B/P Mean Pulse Ox FiO2 10/24 98.2 74-99 16 114/65 85.0 99-100 PATIENT WEIGHT: Weight (lb): Weight (oz): Weight (kg): Physical Exam HEENT: normocephalic w/o injury, no scleral icterus Lungs: unlabored breathing Breasts: deferred Neuro: Exam: alert, oriented x3, normal speech Abdomen: gravid, soft, no abnormal tenderness, no guarding Genitourinary: no raphael Uterine activity: Monitor: toco Frequency (description): irritability Pelvic exam: Sterile speculum exam: visually closed, physiological discharge, no pooling, no bleeding, Rom collected Cervical/ exam: Dilatation (cm): 0 - closed Effacement (%): 0 FHR evaluation: Baseline: 130 bpm Variability: moderate 6-25 bpm Accelerations: 15 X 15 Decelerations: none FHR category: category 1 Membranes: Membranes: status undetermined Diagnosis, Assessment Plan Diagnosis, Assessment Plan Free Text A P: 20 y/o P0 at 36 week c/o cxn and LOF ROM neg UA pending VE closed If UA wnl , ok to d/c home w pelvic rest, no sex, and f/u w Dr. Zapien. at 8366 RPT #:[id number] END OF REPORT [facility] 2020-10-24 22:37:00 [facility] ([facility]) DANYELL Evaluation Note REPORT#:[id number] REPORT STATUS: Signed DATE:10/24/20 TIME: 2236 PATIENT: SHALOM NAVARRO UNIT #: [id number] ROOM/BED: [place] [id number] : 98 AGE: 20 SEX: F ATTEND: Julissa Earl DO ADM DT: AUTHOR: Julissa Earl DO * ALL edits or amendments must be made on the electronic/computer document * See Addendum DANYELL History Chief complaint: uterine contractions HPI: 20 y/o EDC 8/ at 36 week here for cxn and low back pain, vaginal pain worse w walking. No bleeding, unsure if leaking x 1 month that noticed at times soaking underwear and pad. Good mvmt. Saw her OB today, the RN, and was told to come if more cxn. history: : 1 Current : EDC: 11/21/20 EGA (weeks/days): 36 weeks Conditions of : pre-term labor Labs: Blood type: unknown Past medical history: denies PMH Past surgical history: diagnostic lap, ovarian cyst Social history: unemployed, single, no alcohol use, no tobacco use, no drug use Family history Relation not specified for: Family History: Unknown Medications: Home Medications: Medication Dose/Rte/Freq Days Qty Entered Last Max Daily Dose Reviewed PNV WITH FE 1 TAB PO DAILY 09/27/20 FUMARATE/FA 0050 () Strength: 1 EACH TAB Allergies Coded Allergies: No Known Allergies (10/24/20) Review of Systems Constitutional: Denies: fever. ENT: Denies: sore throat. Respiratory: Denies: non productive cough. GI: Denies: nausea, vomiting. : Reports: . Denies: vaginal bleeding. Objective General VS: Last Documented: Result Date Time Pulse Ox 100 10/25 2147 Pulse 85 10/25 2147 Temp 98.2 10/24 2124 Resp 16 10/24 2124 B/P Mean 85.0 10/24 2122 B/P 10/24 2123 Vital Signs Date Temp Pulse Resp B/P B/P Mean Pulse Ox FiO2 10/24 98.2 74-99 16 85.0 99-100 PATIENT WEIGHT: Weight (lb): Weight (oz): Weight (kg): Physical Exam HEENT: normocephalic w/o injury, no scleral icterus Lungs: unlabored breathing Breasts: deferred Neuro: Exam: alert, oriented x3, normal speech Abdomen: gravid, soft, no abnormal tenderness, no guarding Genitourinary: no raphael Uterine activity: Monitor: toco Frequency (description): irritability Pelvic exam: Sterile speculum exam: visually closed, physiological discharge, no pooling, no bleeding, Rom collected Cervical/ exam: Dilatation (cm): 0 - closed Effacement (%): 0 FHR evaluation: Baseline: 130 bpm Variability: moderate 6-25 bpm Accelerations: 15 X 15 Decelerations: none FHR category: category 1 Membranes: Membranes: status undetermined Diagnosis, Assessment Plan Diagnosis, Assessment Plan Free Text A P: 20 y/o P0 at 36 week c/o cxn and LOF ROM neg UA pending VE closed If UA wnl , ok to d/c home w pelvic rest, no sex, and f/u w Dr. Zapien. at 2246 Addendum 1: 10/24/202308 by Julissa Earl DO ua NEGATIVE OK TO D/C HOME, NO SEX, PLENTY OF WATER, AND F/U THIS WEEK WITH DR. ZAPIEN. , HAS APPT THURSDAY. LABOR PRECAUTION. at 2309 RPT #:[id number] END OF REPORT [facility] 2020-10-24 21:31:00 [facility] ([facility]) OB Medical Screening Exam REPORT#:[id number] REPORT STATUS: Signed DATE:10/24/20 TIME: 2130 PATIENT: SHALOM NAVARRO E UNIT #: [id number] ROOM/BED: [place] [id number] : 98 AGE: 20 SEX: F ATTEND: Julissa Earl DO ADM DT: AUTHOR: Julissa Earl DO * ALL edits or amendments must be made on the electronic/computer document * Medical Screening Exam Provider Attestation Comments: PT TRIAGE AT 2130. at 2132 RPT #:[id number] END OF REPORT [facility] 2020-09-28 09:39:00 [facility] ([facility]) DT History Physical REPORT#:[id number] REPORT STATUS: Signed DATE:09/28/20 TIME: 938 PATIENT: SHALOM NAVARRO UNIT #: [id number] ROOM/BED: [place] [address] : 98 AGE: 20 SEX: F ATTEND: Elmer Zapien MD ADM AUTHOR: Elmer Zapien MD * ALL edits or amendments must be made on the electronic/computer document * History Physical History Physical History of Present Illness New symptom(s): Pt is at 32 weeks GA presenting complaining of vaginal pressure and contractions every 5 minutes. She denies any vaginal bleeding and reports good movement Taking Reglan 5 MG Tablet 1 tablet before meals Orally Twice a day Prenate Pixie 10-0.6-0.4-200 MG Capsule 1 capsule Orally Once a day Medication List reviewed and reconciled with the patient Past Medical History OVARIAN CYST. : yes. Surgical History cystectomy Family History grandfather, uncle and cousin- diabetes. Social History Tobacco Use: Tobacco Use/Smoking Are you a nonsmoker. Tobacco use other than smoking Are you an other tobacco user? No. She denies any alcohol or drug use. 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 Sexual activity currently sexually active. Date of Last Period 02/10/2020. Sexually Transmitted Diseases (STDs) none. control none. OB History Total pregnancies 1. Allergies N.K.D.A. Hospitalization/Major Diagnostic Procedure Denies Past Hospitalization Review of Systems General/Constitutional: Denies Change in appetite. Denies Chills. Denies Fatigue. Denies Fever. Denies Headache. Denies Lightheadedness. Denies Sleep disturbance. Denies Weight gain. Denies Weight loss. Allergy/Immunology: Denies Blistering of skin. Denies Congestion. Denies Cough. Denies Hives. Denies Itching. Denies Rash. Denies Sneezing. Ophthalmologic: Denies Blurred vision. Denies Diminished visual acuity. Denies Discharge. Denies Dry eye. Denies Flashes of light in the visual field. Denies Floaters in the visual field. Denies Itching and redness. ENT: Denies Blocked ear. Denies Decreased hearing. Denies Decreased sense of smell. Denies Difficulty swallowing. Denies Dry mouth. Denies Ear pain. Denies Hearing screen. Endocrine: Denies Cold intolerance. Denies Difficulty sleeping. Denies Dizziness. Denies Excessive sweating. Denies Excessive thirst. Denies Frequent urination. Denies Heat intolerance. Respiratory: Denies Chest pain. Denies Cough. Denies Hemoptysis. Denies Pain with inspiration. Denies Shortness of breath at rest. Denies Shortness of breath with exertion. Denies Sputum production. Denies Wheezing. Breast: Denies Bloody nipple discharge. Denies Breast lump. Denies Breast pain. Denies Breast swelling. Denies Fever. Denies Gland swelling. Denies Nipple discharge. Cardiovascular: Denies Chest pain at rest. Denies Chest pain with exertion. Denies Claudication. Denies Cyanosis. Denies Difficulty laying flat. Denies Dizziness. Denies Dyspnea on exertion. Gastrointestinal: Denies Abdominal pain. Denies Blood in stool. Denies Change in bowel habits. Denies Constipation. Denies Decreased appetite. Denies Diarrhea. Denies Difficulty swallowing. Admits Nausea. Hematology: Denies Breast lump. Denies Dizziness. Denies Easy bruising. Denies Fever. Denies Groin mass. Denies Prolonged bleeding. Denies Recent transfusion. Women Only: Denies Breast lump. Denies Breast pain. Denies Discharge from the breast. Denies Heavy bleeding during menses. Denies Hot flashes. Denies Irregular menses. Denies Missed periods. Genitourinary: Patient complaining of C/O frequency and urgency. Denies Abdominal pain/ swelling. Denies Blood in urine. Admits Difficulty urinating. Admits Frequent urination. Denies Pain in lower back. Admits Painful urination. Musculoskeletal: Denies Carpal tunnel. Denies Joint stiffness. Denies Leg cramps. Denies Muscle aches. Denies Pain in shoulder (s). Denies Painful joints. Denies Sciatica. Peripheral Vascular: Denies Absent pulses in hands. Denies Absent pulses in feet. Denies Blanching of skin. Denies Cold extremities. Denies Decreased sensation in extremities. Denies Pain/cramping in legs after exertion. Denies Painful extremities. Podiatric: Denies Achilles pain. Denies Achilles swelling. Denies Ankle pain. Denies Ankle swelling. Denies Ball of foot pain. Denies Big toe pain. Denies Big toe swelling. Skin: Denies Acne. Denies Blistering of skin. Denies Discoloration. Denies Dry skin. Denies Eczema. Denies Hives. Denies Itching. Neurologic: Denies Balance difficulty. Denies Difficulty speaking. Denies Dizziness. Denies Fainting. Denies Headache. Psychiatric: Denies Anxiety. Denies Auditory/visual hallucinations. Denies Delusions. Denies Depressed mood. Denies Difficulty sleeping. Denies Eating disorder. Denies Loss of appetite. Vital Signs HR 63 /min, BP 107/63 mm Hg, Ht 62 in, Wt 110 lbs, BMI 20.12 Index, Ht-cm 157.48 cm, Wt-kg 49.9 kg. Examination General Examination: GENERAL APPEARANCE: in no acute distress, well developed, well nourished. HEAD: normocephalic, atraumatic. EYES: pupils equal, round, reactive to light and accommodation. NECK/THYROID: neck supple, full range of motion, no cervical lymphadenopathy. SKIN: no suspicious lesions, warm and dry. ABDOMEN: normal, no guarding or rigidity, soft, nontender, nondistended. EXTREMITIES: no clubbing, cyanosis, or edema. NEUROLOGIC: nonfocal, motor strength normal upper and lower extremities, sensory exam intact. NST CAT I [place] contractions every 5 minutes Laboratory Tests Test Result Date Time Serology SARS-CoV-2 Ag (Rapid) (Negative) Negative 09/28 2119 Assessments 1. Encounter for supervision of other normal , third trimester - Z34.83 (Primary) 2. Contractions Plan 1. Admit to L D for observation 2. IV Hydration 3. Tocolytics 4. BMZ *2 doses at 1955 RPT #:[id number] END OF REPORT [facility] 2020-09-27 15:40:00 [facility] ([facility]) OB Triage Visit REPORT#:[id number] REPORT STATUS: Signed DATE:09/27/20 TIME: 1540 PATIENT: SHALOM NAVARRO UNIT #: [id number] ROOM/BED: [place] [id number] : 98 AGE: 20 SEX: F ATTEND: Taisha Edouard MD ADM AUTHOR: Taisha Edouard MD * ALL edits or amendments must be made on the electronic/computer document * Subjective Subjective Patient reports: cramping History Nursing Documentation Review Nursing data: The data set between the solid lines has been imported from nursing documentation. Any exceptions have been noted below under Provider comments. Current data Steroids prior to arrival: ROM date: ROM time: EDC date: Gestational age (labor triage): Post hemorrhage risk score: Low Risk for Hemorrhage. Prior history : Para: Term: : Abortions spontaneous: Abortions induced: Living children: Ectopic: Stillbirths: Live births: deaths: Number of previous C/S: Reported maternal labs/data Blood type: Rh type: Rubella: Hepatitis B: HIV exposure test: VDRL: Group B beta strep: Rho(D) immune globulin this preg: Monitor mode - UA: Feeding preference: Provider comments on imported nursing data: [] Chief complaint Chief complaint: evaluate for PTL HPI: 20 yo at 32.1 weeks was seen in triage this morning around 2 am. FFN done at that time was negative and urine unremarkable. Received fluids and terbutaline. Pain never completely resolved and now more consistent. Feels cramping and simultaneously pressure vaginally. Remains L/T/C. Good fm. No vb. Intact. history: : 1 Term: 0 Current Current : EGA (weeks/days): 32.1 Past history Past medical history: denies PMH Past surgical history: lap ovarian cystectomy Social history: no alcohol use, no tobacco use Family history Relation not specified for: Family History: Unknown Medications: Home Medications: Medication Dose/Rte/Freq Days Qty Entered Last Max Daily Dose Reviewed PNV WITH FE 1 TAB PO DAILY 09/27/20 FUMARATE/FA 0050 () Strength: 1 EACH TAB Allergies Coded Allergies: No Known Allergies (03/26/20) Review of Systems Constitutional: Denies: chills, fever. Respiratory: Denies: non productive cough, productive cough (sputum), SOB. Cardiovascular: Denies: chest pain, edema. GI: Denies: nausea, vomiting. : Reports: pelvic pain (cramping), . Denies: vaginal bleeding, vaginal discharge. Neuro: Denies: dizziness, headache, vision change. Objective General VS: Last Documented: Result Date Time B/P Mean 85.0 09/27 1456 B/P 112/68 09/27 1456 Pulse 107 09/27 1456 Pulse Ox 97 09/27 1454 Vital Signs Date Temp Pulse Resp B/P B/P Mean Pulse Ox FiO2 09/27 97-107 112/ 85.0 97 PATIENT WEIGHT: Weight (lb): 110 Weight (oz): Weight (kg): 49.895 Notes: Gen: well appearing gravid female in NAD Physical Exam HEENT: normocephalic w/o injury Lungs: unlabored breathing Neuro: Exam: alert, oriented x3, normal speech Abdomen: gravid, soft, no abnormal tenderness, no guarding, no rebound tenderness Uterine activity: Monitor: toco Frequency (description): regular Frequency (minutes): 3 Cervical/ exam: Dilatation (cm): 0 - closed Effacement (%): 0 station: 0 Membranes: Membranes: Intact Lower extremities: Edema: none Ebenezer's sign: negative Calf tenderness: negative Additional comments: category 1 strip Diagnosis, Assessment Plan Diagnosis, Assessment Plan Free text A P: A/P 20 yo at 32.1 wk who has represented in less than 24 hr for same cramping. Discussed with Dr. Zapien and he will admit for 23 obs and take over care. at 1802 RPT #:[id number] END OF REPORT [facility] 2020-09-27 01:49:00 [facility] DANYELL Evaluation Note REPORT#:[id number] REPORT STATUS: Signed DATE:09/27/20 TIME: 0149 PATIENT: SHALOM NAVARRO UNIT #: [id number] ROOM/BED: [place] [address] : 98 AGE: 20 SEX: F ATTEND: Julissa Earl DO ADM AUTHOR: Julissa Earl DO * ALL edits or amendments must be made on the electronic/computer document * See Addendum DANYELL History Chief complaint: uterine contractions HPI: 20 y/o EDC 8/4 at 32 w 1 d here c/o cxn since 1899 last night every 2-3 minutes apart lasting 30 seconds, now the cxn are spacing out. No leaking of fluid or vaginal bleeding, and good mvmt. She denies any recent sex. history: : 1 Current : EDC: 11/21/20 EGA (weeks/days): 32 wk 1 day Conditions of : hyperemesis gravidarum, kidney/bladder infection, subchorionic hemorrhage Labs: Blood type: unknown Past medical history: ovarian cyst Past surgical history: diagnostic lap, ovarian cystectomy Social history: unemployed, single, no tobacco use Family history Relation not specified for: Family History: Unknown Medications: Home Medications: Medication Dose/Rte/Freq Days Qty Entered Last Max Daily Dose Reviewed PNV WITH FE 1 TAB PO DAILY 09/27/20 FUMARATE/FA 0050 () Strength: 1 EACH TAB Current Hospital Medications: Electrolytic, Caloric, And Miguel Angel Sig/Prisca Start time Last Medication Dose Route Stop Time Status Admin Lactated Ringer's 1,000 ML BOLUS 09/27 0130 AC (LACTATED RINGERS) IV 10/27 0129 Allergies Coded Allergies: No Known Allergies (03/26/20) Review of Systems Constitutional: Denies: fever. ENT: Denies: sore throat. Respiratory: Denies: non productive cough. GI: Denies: nausea, vomiting. : Reports: . Denies: vaginal bleeding. Objective General VS: Last Documented: Result Date Time B/P Mean 82.0 09/27 0052 B/P 107/71 09/27 0052 Temp 98.8 09/27 0052 Pulse 90 09/27 0052 Resp 16 09/27 0052 Pulse Ox 98 09/27 0051 Vital Signs Date Temp Pulse Resp B/P B/P Mean Pulse Ox FiO2 09/27 98.8 90-97 16 107/ 82.0 98 PATIENT WEIGHT: Weight (lb): Weight (oz): Weight (kg): Physical Exam HEENT: normocephalic w/o injury, no scleral icterus Lungs: unlabored breathing Neuro: Exam: alert, oriented x3, normal speech Abdomen: gravid, soft, no abnormal tenderness, no guarding Genitourinary: no raphael Uterine activity: Monitor: toco Frequency (description): irritability, irregular Pelvic exam: Pelvis clinically adequate: contracted pelvis Vulvar lesions: none, no evidence herpetic les, no evidence of other STD Vagina: normal, non-septated, w/o apparent lesions Sterile speculum exam: visually closed, physiological discharge, no pooling, no bleeding Cervical/ exam: Dilatation (cm): 0 - closed Effacement (%): 0 FHR evaluation: Baseline: 130 bpm Variability: moderate 6-25 bpm Accelerations: 15 X 15 Decelerations: none FHR category: category 1 Membranes: Membranes: Intact Diagnosis, Assessment Plan Diagnosis, Assessment Plan Free Text A P: 20 y/o P0 at 32 w 1 day with c/o cxn Cervix closed IV fluids UA FFN Will f/u at 0155 Addendum 1: 09/27/20 0230 by Julissa Earl DO FFN neg UA tr LE with 1+bacteria Terb x 1 SQ Will continue to follow. at 0230 RPT #:[id number] END OF REPORT [facility] 2020-09-27 01:49:00 [facility] ([facility]) DANYELL Evaluation Note REPORT#:[id number] REPORT STATUS: Signed DATE:09/27/20 TIME: 0149 PATIENT: SHALOM NAVARRO UNIT #: [id number] ROOM/BED: [place] [id number] : 98 AGE: 20 SEX: F ATTEND: Julissa Earl DO ADM AUTHOR: Julissa Earl DO * ALL edits or amendments must be made on the electronic/computer document * See Addendum DANYELL History Chief complaint: uterine contractions HPI: 20 y/o EDC 8/4 at 32 w 1 d here c/o cxn since 1899 last night every 2-3 minutes apart lasting 30 seconds, now the cxn are spacing out. No leaking of fluid or vaginal bleeding, and good mvmt. She denies any recent sex. history: : 1 Current : EDC: 11/21/20 EGA (weeks/days): 32 wk 1 day Conditions of : hyperemesis gravidarum, kidney/bladder infection, subchorionic hemorrhage Labs: Blood type: unknown Past medical history: ovarian cyst Past surgical history: diagnostic lap, ovarian cystectomy Social history: unemployed, single, no tobacco use Family history Relation not specified for: Family History: Unknown Medications: Home Medications: Medication Dose/Rte/Freq Days Qty Entered Last Max Daily Dose Reviewed PNV WITH FE 1 TAB PO DAILY 09/27/20 FUMARATE/FA 0050 () Strength: 1 EACH TAB Current Hospital Medications: Electrolytic, Caloric, And Miguel Angel Sig/Prisca Start time Last Medication Dose Route Stop Time Status Admin Lactated Ringer's 1,000 ML BOLUS 09/27 0130 AC (LACTATED RINGERS) IV 10/27 0129 Allergies Coded Allergies: No Known Allergies (03/26/20) Review of Systems Constitutional: Denies: fever. ENT: Denies: sore throat. Respiratory: Denies: non productive cough. GI: Denies: nausea, vomiting. : Reports: . Denies: vaginal bleeding. Objective General VS: Last Documented: Result Date Time B/P Mean 82.0 09/27 0052 B/P 107/09/27 0052 Temp 98.8 09/27 0052 Pulse 90 09/27 0052 Resp 16 09/27 0052 Pulse Ox 98 09/27 0051 Vital Signs Date Temp Pulse Resp B/P B/P Mean Pulse Ox FiO2 09/27 98.8 90-97 16 / 82.0 98 PATIENT WEIGHT: Weight (lb): Weight (oz): Weight (kg): Physical Exam HEENT: normocephalic w/o injury, no scleral icterus Lungs: unlabored breathing Neuro: Exam: alert, oriented x3, normal speech Abdomen: gravid, soft, no abnormal tenderness, no guarding Genitourinary: no raphael Uterine activity: Monitor: toco Frequency (description): irritability, irregular Pelvic exam: Pelvis clinically adequate: contracted pelvis Vulvar lesions: none, no evidence herpetic les, no evidence of other STD Vagina: normal, non-septated, w/o apparent lesions Sterile speculum exam: visually closed, physiological discharge, no pooling, no bleeding Cervical/ exam: Dilatation (cm): 0 - closed Effacement (%): 0 FHR evaluation: Baseline: 130 bpm Variability: moderate 6-25 bpm Accelerations: 15 X 15 Decelerations: none FHR category: category 1 Membranes: Membranes: Intact Diagnosis, Assessment Plan Diagnosis, Assessment Plan Free Text A P: 20 y/o P0 at 32 w 1 day with c/o cxn Cervix closed IV fluids UA FFN Will f/u at 0155 Addendum 1: 09/27/20 0230 by Julissa Earl DO FFN neg UA tr LE with 1+bacteria Terb x 1 SQ Will continue to follow. at 0230 Addendum 2: 09/27/20 0253 by Julissa Earl DO Doing fine, no cxn noted NST 135 Cat 1 OK to d/c home on pelvic rest, and call Dr. Zapien office in the morning today for f/u. Pelvic rest, plenty water. at 0254 RPT #:[id number] END OF REPORT [facility] 2020-09-27 01:49:00 [facility] ([facility]) DANYELL Evaluation Note REPORT#:[id number] REPORT STATUS: Signed DATE:09/27/20 TIME: 014 PATIENT: SHALOM NAVARRO UNIT #: [id number] ROOM/BED: [place] [id number] : 98 AGE: 20 SEX: F ATTEND: Julissa Earl DO ADM AUTHOR: Julissa Earl DO * ALL edits or amendments must be made on the electronic/computer document * DANYELL History Chief complaint: uterine contractions HPI: 20 y/o EDC 8/4 at 32 w 1 d here c/o cxn since 1900 last night every 2-3 minutes apart lasting 30 seconds, now the cxn are spacing out. No leaking of fluid or vaginal bleeding, and good mvmt. She denies any recent sex. history: : 1 Current : EDC: 11/21/20 EGA (weeks/days): 32 wk 1 day Conditions of : hyperemesis gravidarum, kidney/bladder infection, subchorionic hemorrhage Labs: Blood type: unknown Past medical history: ovarian cyst Past surgical history: diagnostic lap, ovarian cystectomy Social history: unemployed, single, no tobacco use Family history Relation not specified for: Family History: Unknown Medications: Home Medications: Medication Dose/Rte/Freq Days Qty Entered Last Max Daily Dose Reviewed PNV WITH FE 1 TAB PO DAILY 09/27/20 FUMARATE/FA 0050 () Strength: 1 EACH TAB Current Hospital Medications: Electrolytic, Caloric, And Miguel Angel Sig/Prisca Start time Last Medication Dose Route Stop Time Status Admin Lactated Ringer's 1,000 ML BOLUS 09/27 0130 AC (LACTATED RINGERS) IV 10/27 012 Allergies Coded Allergies: No Known Allergies (03/26/20) Review of Systems Constitutional: Denies: fever. ENT: Denies: sore throat. Respiratory: Denies: non productive cough. GI: Denies: nausea, vomiting. : Reports: . Denies: vaginal bleeding. Objective General VS: Last Documented: Result Date Time B/P Mean 82.0 09/27 0052 B/P 107/71 09/27 0052 Temp 98.8 09/27 0052 Pulse 90 09/27 0052 Resp 16 09/27 0052 Pulse Ox 98 09/27 0051 Vital Signs Date Temp Pulse Resp B/P B/P Mean Pulse Ox FiO2 / 98.8 90-97 16 107/71 82.0 98 PATIENT WEIGHT: Weight (lb): Weight (oz): Weight (kg): Physical Exam HEENT: normocephalic w/o injury, no scleral icterus Lungs: unlabored breathing Neuro: Exam: alert, oriented x3, normal speech Abdomen: gravid, soft, no abnormal tenderness, no guarding Genitourinary: no raphael Uterine activity: Monitor: toco Frequency (description): irritability, irregular Pelvic exam: Pelvis clinically adequate: contracted pelvis Vulvar lesions: none, no evidence herpetic les, no evidence of other STD Vagina: normal, non-septated, w/o apparent lesions Sterile speculum exam: visually closed, physiological discharge, no pooling, no bleeding Cervical/ exam: Dilatation (cm): 0 - closed Effacement (%): 0 FHR evaluation: Baseline: 130 bpm Variability: moderate 6-25 bpm Accelerations: 15 X 15 Decelerations: none FHR category: category 1 Membranes: Membranes: Intact Diagnosis, Assessment Plan Diagnosis, Assessment Plan Free Text A P: 20 y/o P0 at 32 w 1 day with c/o cxn Cervix closed IV fluids UA FFN Will f/u at 0155 RPT #:[id number] END OF REPORT [facility] 2020-09-27 01:23:00 [facility] ([facility]) OB Medical Screening Exam REPORT#:[id number] REPORT STATUS: Signed DATE:09/27/20 TIME: 0123 PATIENT: SHALOM NAVARRO UNIT #: [id number] ROOM/BED: [id number] : 98 AGE: 20 SEX: F ATTEND: Julissa Earl DO ADM AUTHOR: Julissa Earl DO * ALL edits or amendments must be made on the electronic/computer document * Medical Screening Exam Provider Attestation Comments: Pt triaged at 0125. at 0123 RPT #:[id number] END OF REPORT [facility] 2020-04-23 18:34:00 [facility] ([facility]) EMERGENCY PROVIDER REPORT REPORT#:[id number] REPORT STATUS: Signed DATE:04/23/20 TIME: 1834 PATIENT: SHALOM NAVARRO UNIT #: [id number] ROOM/BED: AGE: 20 SEX: F PCP PHYS: Elmer Zapien MD SERVICE AUTHOR: Connie Gastelum NP * ALL edits or amendments must be made on the electronic/computer document * HPI-Nausea/Vomit/Diarrhea General Confirmed Patient Yes Initial Greet Date/Time 04/23/20 1752 Presentation Chief Complaint Nausea, Vomiting Free Text HPI Notes Free Text HPI Notes 20-year-old female with no significant past medical history presents the emergency department complaints of nausea and vomiting since yesterday. Patient reports she cannot keep water down. Patient reports she is 9 weeks . Patient has an appoint with her OB in 2 days but states she came to the ER for IV fluids. Patient denies abdominal pain, vaginal discharge, vaginal bleeding, other complaints Review of Systems ROS Statements All systems rev neg except as marked. Focused Review of Systems GI Reports: Nausea, Vomiting. Past Medical History - Adult Stated Complaint N/V, 9 WEEKS , Allergies Coded Allergies: No Known Allergies (03/26/20) Home Medications Active Scripts ACETAMINOPHEN/CODEINE (TYLENOL WITH CODEINE #3 300/30 MG) 1 TAB PO Q4H PRN PRN ABDOMINAL CRAMPS/PAIN ACETAMINOPHEN/CODEINE (TYLENOL WITH CODEINE #3 300/30 MG) 1 TAB PO Q4H PRN PRN ABDOMINAL CRAMPS/PAIN #30 TAB Prov: 05/24/15 ONDANSETRON ODT (ZOFRAN ODT) 4 MG PO Q6H PRN PRN NAUSEA/VOMITING ONDANSETRON ODT (ZOFRAN ODT) 4 MG PO Q6H PRN PRN NAUSEA/VOMITING #15 TABS Prov: 03/26/20 NITROFURANTOIN/NITROFURAN MAC (MACROBID) 100 MG PO BID NITROFURANTOIN/NITROFURAN MAC (MACROBID) 100 MG PO BID #14 CAPS Prov: 03/26/20 Reported Medications IBUPROFEN (ADVIL) 400 MG PO PRN PRN PAIN [NIQUILL] Pt reports no significant: Family history, Social history Additional Medical History Ovarian cysts Additional Surgical History Ovarian cyst removal Smoking status for patients 13 years old or older: Unknown,if ever smoked Physical Exam Vital Signs Vital Signs First Documented: Result Date Time Pulse Ox 99 04/23 1810 B/P 126/80 04/23 1810 B/P Mean 95 04/23 181 O2 Delivery Room air 04/23 181 Temp 37.1 04/23 181 Pulse 92 04/23 181 Resp 15 04/23 1809 Last Documented: Result Date Time Pulse Ox 99 04/23 1810 B/P 126/80 04/23 1810 B/P Mean 95 04/23 1810 O2 Delivery Room air 04/23 1809 Temp 37.1 04/23 1809 Pulse 92 04/23 181 Resp 15 04/23 181 Review of Vital Signs Reviewed, Vital signs normal Free Text PE Notes Free Text PE Notes General: Awake, alert, nontoxic, in no distress, well-appearing, well-developed, well-hydrated, well-nourished, cooperative Head: Atraumatic, normocephalic Eyes: PERRL, EOMI, normal conjunctiva, normal sclera Ears/Nose/Throat: Airway patent, Mucous mebranes moist, normal phonation Neck: Supple, trachea midline, no meningismus, full range of motion intact, no adenopathy Respiratory/Chest: Lungs clear to auscultation bilaterally, no respiratory distress, breath sounds equal bilaterally, No wheezing, No rhonchi, No dyspnea. No stridor or accessory muscle use. Cardiovascular: Regular rate, regular rhythm, peripheral circulation normal Abdomen: Soft, Nontender, No distention, no guarding, bowel sounds normoactive Skin: Warm, Dry, Intact, No rash Lower Extremities: No swelling, No deformity, normal circulation Back: Painless ROM, no CVA tenderness. No midline or paraspinal TTP. Neurologic: Awake, Alert, oriented x3, normal speech, normal gait, no focal motor or sensory deficits, cranial nerves II through XII grossly intact, normal reflexes present : Deferred Re-Evaluation MDM Free Text MDM Notes Free Text MDM Notes Exam results consistent with hyperemesis gravidarum. Patient reports she was better would like to go home. Patient states it is making her anxious to be in the waiting room and she does not want to wait to sign the papers. Discussed all results, diagnosis, home care instructions, and strict return precautions with patient and/or family. Patient verbalizes understanding and agrees with plan to discharge home and follow-up outpatient. All concerns addressed ED Course Medication(s) Ordered Medication(s) Ordered: Electrolytic, Caloric, And Miguel Angel Sig/Prisca Start time Last Medication Dose Route Stop Time Status Admin Sodium Chloride 0 ASDIR PRN 04/23 1800 DCD IV 04/24 1652 Sodium Chloride 1,000 ML X1ED STA 04/23 1752 DC 04/23 IV 04/23 1851 1818 Sodium Chloride 1,000 ML X1ED STA 04/23 1752 DC 04/23 IV 04/23 1851 1819 Gastrointestinal Drugs Sig/Prisca Start time Last Medication Dose Route Stop Time Status Admin Metoclopramide HCl 10 MG X1ED STA 04/23 1752 DC 04 IV 04/23 1753 1819 Patient Discharge Departure Vital Signs/Condition Vital Signs First Documented: Result Date Time Pulse Ox 99 04/23 1810 B/P 126/80 04/23 1810 B/P Mean 95 04/23 1810 O2 Delivery Room air 04/23 181 Temp 37.1 04/23 181 Pulse 92 04/23 1810 Resp 15 04/23 181 Last Documented: Result Date Time Pulse Ox 99 04/23 1810 B/P 126/80 04/23 1810 B/P Mean 95 04/23 1810 O2 Delivery Room air 04/23 1809 Temp 37.1 04/23 1809 Pulse 92 04/23 1809 Resp 15 04/23 1809 All vital signs available at the time of this entry have been reviewed. Condition Stable Clinical Impression Clinical Impression Primary Impression: Hyperemesis gravidarum Disposition Decision Discharge )( Discharged to Home Yes )( Time 192 )( Date 04/23/20 Discharge/Care Plan Counseled Regarding Diagnosis, Prescriptions, Need for follow-up, When to return to ED at 2107 RPT #:[id number] END OF REPORT [facility] 2020-04-23 18:34:00 [facility] ([facility]) EMERGENCY PROVIDER REPORT REPORT#:[id number] REPORT STATUS: Signed DATE:04/23/20 TIME: 1833 PATIENT: SHALOM NAVARRO UNIT #: [id number] ROOM/BED: AGE: 20 SEX: F PCP PHYS: Elmer Zapien MD SERVICE AUTHOR: Connie Gastelum CLIMATOLOGY PROFESSOR * ALL edits or amendments must be made on the electronic/computer document * Connie Gastelum 04/23/20 1834: HPI-Nausea/Vomit/Diarrhea General Confirmed Patient Yes Presentation Chief Complaint Nausea, Vomiting Free Text HPI Notes Free Text HPI Notes 20-year-old female with no significant past medical history presents the emergency department complaints of nausea and vomiting since yesterday. Patient reports she cannot keep water down. Patient reports she is 9 weeks . Patient has an appoint with her OB in 2 days but states she came to the ER for IV fluids. Patient denies abdominal pain, vaginal discharge, vaginal bleeding, other complaints Review of Systems ROS Statements All systems rev neg except as marked. Focused Review of Systems GI Reports: Nausea, Vomiting. Past Medical History - Adult Stated Complaint N/V, 9 WEEKS , Allergies Coded Allergies: No Known Allergies (03/26/20) Home Medications Active Scripts ACETAMINOPHEN/CODEINE (TYLENOL WITH CODEINE #3 300/30 MG) 1 TAB PO Q4H PRN PRN ABDOMINAL CRAMPS/PAIN ACETAMINOPHEN/CODEINE (TYLENOL WITH CODEINE #3 300/30 MG) 1 TAB PO Q4H PRN PRN ABDOMINAL CRAMPS/PAIN #30 TAB Prov: 05/24/15 ONDANSETRON ODT (ZOFRAN ODT) 4 MG PO Q6H PRN PRN NAUSEA/VOMITING ONDANSETRON ODT (ZOFRAN ODT) 4 MG PO Q6H PRN PRN NAUSEA/VOMITING #15 TABS Prov: 03/26/20 NITROFURANTOIN/NITROFURAN MAC (MACROBID) 100 MG PO BID NITROFURANTOIN/NITROFURAN MAC (MACROBID) 100 MG PO BID #14 CAPS Prov: 03/26/20 Reported Medications IBUPROFEN (ADVIL) 400 MG PO PRN PRN PAIN [NIQUILL] Pt reports no significant: Family history, Social history Additional Medical History Ovarian cysts Additional Surgical History Ovarian cyst removal Smoking status for patients 13 years old or older: Unknown,if ever smoked Physical Exam Vital Signs Vital Signs First Documented: Result Date Time Pulse Ox 99 04/23 1810 B/P 126/80 04/23 1810 B/P Mean 95 04/23 181 O2 Delivery Room air 04/23 1809 Temp 37.1 04/23 1809 Pulse 92 04/23 181 Resp 15 04/23 1809 Last Documented: Result Date Time Pulse Ox 99 04/23 1810 B/P 126/80 04/23 1810 B/P Mean 95 04/23 1810 O2 Delivery Room air 04/23 1809 Temp 37.1 04/23 1809 Pulse 92 04/23 1810 Resp 15 04/23 1809 Review of Vital Signs Reviewed, Vital signs normal Free Text PE Notes Free Text PE Notes General: Awake, alert, nontoxic, in no distress, well-appearing, well-developed, well-hydrated, well-nourished, cooperative Head: Atraumatic, normocephalic Eyes: PERRL, EOMI, normal conjunctiva, normal sclera Ears/Nose/Throat: Airway patent, Mucous mebranes moist, normal phonation Neck: Supple, trachea midline, no meningismus, full range of motion intact, no adenopathy Respiratory/Chest: Lungs clear to auscultation bilaterally, no respiratory distress, breath sounds equal bilaterally, No wheezing, No rhonchi, No dyspnea. No stridor or accessory muscle use. Cardiovascular: Regular rate, regular rhythm, peripheral circulation normal Abdomen: Soft, Nontender, No distention, no guarding, bowel sounds normoactive Skin: Warm, Dry, Intact, No rash Lower Extremities: No swelling, No deformity, normal circulation Back: Painless ROM, no CVA tenderness. No midline or paraspinal TTP. Neurologic: Awake, Alert, oriented x3, normal speech, normal gait, no focal motor or sensory deficits, cranial nerves II through XII grossly intact, normal reflexes present : Deferred Re-Evaluation MDM Free Text MDM Notes Free Text MDM Notes Exam results consistent with hyperemesis gravidarum. Patient reports she was better would like to go home. Patient states it is making her anxious to be in the waiting room and she does not want to wait to sign the papers. Discussed all results, diagnosis, home care instructions, and strict return precautions with patient and/or family. Patient verbalizes understanding and agrees with plan to discharge home and follow-up outpatient. All concerns addressed ED Course Medication(s) Ordered Medication(s) Ordered: Electrolytic, Caloric, And Miguel Angel Sig/Prisca Start time Last Medication Dose Route Stop Time Status Admin Sodium Chloride 0 ASDIR PRN 04/23 1800 DCD IV 04/24 1652 Sodium Chloride 1,000 ML X1ED STA 04/23 1752 DC / IV 04/23 1851 1818 Sodium Chloride 1,000 ML X1ED STA 04/23 1752 DC 04/23 IV 04/23 1851 1819 Gastrointestinal Drugs Sig/Prisca Start time Last Medication Dose Route Stop Time Status Admin Metoclopramide HCl 10 MG X1ED STA 04/23 1752 DC / IV 04/23 1753 1819 Patient Discharge Departure Vital Signs/Condition Vital Signs First Documented: Result Date Time Pulse Ox 99 04/23 1810 B/P 126/80 04/23 1810 B/P Mean 95 04/23 1810 O2 Delivery Room air 04/23 1810 Temp 37.1 04/23 181 Pulse 92 04/23 1810 Resp 15 04/23 1810 Last Documented: Result Date Time Pulse Ox 99 04/23 1810 B/P 126/80 04/23 1810 B/P Mean 95 04/23 1810 O2 Delivery Room air 04/230 Temp 37.1 04/23 181 Pulse 92 04/23 1810 Resp 15 04/23 1810 All vital signs available at the time of this entry have been reviewed. Condition Stable Clinical Impression Clinical Impression Primary Impression: Hyperemesis gravidarum Disposition Decision Discharge )( Discharged to Home Yes )( Time 1928 )( Date 04/23/20 Discharge/Care Plan Counseled Regarding Diagnosis, Prescriptions, Need for follow-up, When to return to ED Desirae eNttles 04/25/20 1629: HPI-Nausea/Vomit/Diarrhea General Initial Greet Date/Time 04/23/20 1752 Patient Discharge Departure Supervising Physician Note MidLv Saw Pt Alone I have reviewed the PA/CLIMATOLOGY PROFESSOR's note and plan of care. I was available for consultation as needed at all times during the patient's visit in the emergency department. I agree with the clinical impression, plan and disposition. at 2107 at 1629 RPT #:[id number] END OF REPORT [facility] 2020-03-26 10:30:00 [facility] ([facility] EMERGENCY PROVIDER REPORT REPORT#:[id number] REPORT STATUS: Signed DATE:03/26/20 TIME: 1030 PATIENT: SHALOM NAVARRO UNIT #: [id number] ROOM/BED: AGE: 19 SEX: F PCP PHYS: Elmer Zapien MD SERVICE AUTHOR: Junito Pantoja MD * ALL edits or amendments must be made on the electronic/computer document * HPI-Nausea/Vomit/Diarrhea General Confirmed Patient Yes Patient Type New patient Initial Greet Date/Time 03/26/20 1004 Presentation Chief Complaint Nausea, Vomiting Hx Obtained From Patient Onset Occurred Days ago (5) Symptom Duration Waxes and wanes Progression since Onset Waxes and wanes Vomiting Vomiting > 10 episodes Location Epigastric Quality Cramping Radiation Does not radiate. Free Text HPI Notes Free Text HPI Notes 19-year-old female patient that is approximately 6 weeks , G1, P0 sent to the emerge department by her [employer] doctor Dr. Henderson's to be checked out due to 5 days of nausea and vomiting. Patient denies vaginal bleeding, abdominal pain, diarrhea, fever, chills, shortness of breath. Review of Systems ROS Statements All systems rev neg except as marked. Focused Review of Systems GI Reports: Nausea, Vomiting. Past Medical History - Adult Stated Complaint , N/V - DENIES FEVER Allergies Coded Allergies: No Known Allergies (03/26/20) Home Medications Active Scripts ACETAMINOPHEN/CODEINE (TYLENOL WITH CODEINE #3 300/30 MG) 1 TAB PO Q4H PRN PRN ABDOMINAL CRAMPS/PAIN ACETAMINOPHEN/CODEINE (TYLENOL WITH CODEINE #3 300/30 MG) 1 TAB PO Q4H PRN PRN ABDOMINAL CRAMPS/PAIN #30 TAB Prov: 05/24/15 Reported Medications IBUPROFEN (ADVIL) 400 MG PO PRN PRN PAIN [NIQUILL] Calculated suicide risk level: No risk Additional Medical History Ovarian cysts Additional Surgical History Ovarian cyst removal Smoking status for patients 13 years old or older: Never Smoker Physical Exam Vital Signs Vital Signs First Documented: Result Date Time Pulse Ox 99 03/26 1016 B/P 116/88 03/26 1016 B/P Mean 97 03/26 1016 O2 Delivery Room air 03/26 1016 Temp 36.6 03/26 1016 Pulse 115 03/26 1016 Resp 16 03/26 1016 Last Documented: Result Date Time Pulse Ox 99 03/26 1016 B/P 116/88 03/26 1016 B/P Mean 97 03/26 1016 O2 Delivery Room air 03/26 1016 Temp 36.6 03/26 1016 Pulse 115 03/26 1016 Resp 16 03/26 1016 Review of Vital Signs Reviewed Focused PE General/Const General/Const Awake, Alert, Well appearing Eyes Eyes PERRL Ears/Nose/Throat Ears/Nose/Throat Airway patent, Mucous membranes moist, Pharynx NL Resp/Chest Respiratory/Chest Breath sounds NL, Breath sounds = bilat, No respiratory distress, No rales, No rhonchi, No wheezing Cardiovascular Cardiovascular Heart rate NL, Regular rhythm, Heart sounds NL, Peripheral circulation NL Abdomen/GI Abdomen/GI Soft, Non-tender, McBurney's non-tender, No guarding, No rebound, BS normoactive, No distention, No hernia, No palpable mass MS Back Back Inspection NL, Non-tender, No CVA tenderness Skin Skin Color NL, No rash, Warm, Dry, Turgor NL Neurologic Neurologic Oriented X3, Speech NL, No motor deficits, No sensory deficits Interpretation Diagnostics Lab Results Interpretation Results Laboratory Tests 03/26/20 1033: [Embedded Image Not Available] Laboratory Tests: 03/26 03/26 1033 1013 Hematology WBC (4.5 - 11.0 x10 3/uL) 11.0 RBC (3.54 - 5.02 x10 6/uL) 4.73 Hgb (11.0 - 15.0 g/dL) 14.9 Hct (33.0 - 45.0 %) 43.0 MCV (81.0 - 99.0 fL) 90.9 MCH (27.0 - 33.0 pg) 31.5 MCHC (33.0 - 37.0 g/dL) 34.7 RDW (11.5 - 14.5 %) 12.3 Plt Count (150 - 400 x10 3/uL) 339 MPV (7.0 - 9.0 fL) 10.1 H Neut % (Auto) (56.0 - 77.0 %) 73.0 Lymph % (Auto) (14.0 - 32.0 %) 19.0 Dewitt % (Auto) (4.8 - 9.0 %) 6.6 Eos % (Auto) (0.3 - 3.7 %) 0.3 Baso % (Auto) (0.0 - 2.0 %) 0.4 Neut # (Auto) (2.0 - 7.6 x10 3/uL) 8.02 H Lymph # (Auto) (1.0 - 3.8 x10 3/uL) 2.09 Dewitt # (Auto) (0.1 - 0.8 x10 3/uL) 0.73 Eos # (Auto) (0.0 - 0.2 x10 3/uL) 0.03 Baso # (Auto) (0.0 - 0.2 x10 3/uL) 0.04 Abs Immat Gran (auto) (0.00 - 0.03 x10 3/uL) 0.08 H Add Manual Diff NO Immature Gran % (0.0 - 2.0 %) 0.7 Nucleated RBC % (0 - 0 %) 0.0 Nucleated RBCs # (Man) (0.0 - 0.1 x10 3/uL) 0.00 Urines Urine Color (YEL/STRAW) YELLOW Urine Appearance (CLEAR) CLOUDY H Urine pH (5.0 - 7.0) 5.0 Ur Specific [place] (1.005 - 1.030) 1.031 H Urine Protein (NEGATIVE) 2+ H Urine Glucose (UA) (NEGATIVE) NEGATIVE Urine Ketones (NEGATIVE) 2+ H Urine Blood (NEGATIVE) 2+ H Urine Nitrite (NEGATIVE) NEGATIVE Urine Bilirubin (NEGATIVE) NEGATIVE Urine Urobilinogen (0.2 - 1.0 mg/dL) 2.0 H Ur Leukocyte Esterase (NEGATIVE) NEGATIVE Urine RBC (0 - 3 RBC/HPF) 11-20 Urine WBC (0 - 3 WBC/HPF) 21-50 H Ur Squamous Epith Cells (NONE SEEN /HPF) 6-10 H Urine Bacteria (NONE SEEN /HPF) 4+ H Urine Mucus (NONE SEEN /LPF) 4+ H Microbiology: Date/Time Procedure - Status Source Growth 03/26 1013 Urine Culture - RECD URINE Recent Impressions: ULTRASOUND - DUP AB/PEL/SC/LTD 03/26 1137 Report Impression - Status: SIGNED Entered: 03/26/2020 1149 IMPRESSION: 1. 6 week live intrauterine with area of subchronic hemorrhage adjacent to the gestational sac. 2. 3.1 cm corpus luteum cyst right ovary. SL: [id number] Impression By: Elena Pitts M.D. ULTRASOUND - US PREG UT TRANSVAGINAL 03/26 1137 Report Impression - Status: SIGNED Entered: 03/26/2020 1149 IMPRESSION: 1. 6 week live intrauterine with area of subchronic hemorrhage adjacent to the gestational sac. 2. 3.1 cm corpus luteum cyst right ovary. SL: [id number] Impression By: Elena Pitts M.D. ULTRASOUND - US PREG 1ST TRIMTR 03/26 113 Report Impression - Status: SIGNED Entered: 03/26/2020 1149 IMPRESSION: 1. 6 week live intrauterine with area of subchronic hemorrhage adjacent to the gestational sac. 2. 3.1 cm corpus luteum cyst right ovary. SL: [id number] Impression By: Elena Pitts M.D. Re-Evaluation MDM Re-Evaluation/Progress #1 Text/Dict Note No vomiting while in the emergency department. Patient aware of the results of the bladder infection and subchorionic hemorrhage on pelvic ultrasound although she is not having any complaints of bleeding. Patient will follow up with Dr. Zapien Time of Re-Eval 1246 ED Course Medication(s) Ordered Medication(s) Ordered: Electrolytic, Caloric, And Miguel Angel Sig/Prisca Start time Last Medication Dose Route Stop Time Status Admin Sodium Chloride 0 ASDIR PRN 03/26 1015 AC IV 03/27 0914 Sodium Chloride 1,000 ML X1ED STA 03/26 1014 DC 03/26 IV 03/26 1113 1043 Gastrointestinal Drugs Sig/Prisca Start time Last Medication Dose Route Stop Time Status Admin Ondansetron HCl 4 MG X1ED STA 03/26 1014 DC 03/26 IV 03/26 1015 1043 Patient Discharge Departure Vital Signs/Condition Vital Signs First Documented: Result Date Time Pulse Ox 99 03/26 1016 B/P 116/88 03/26 1016 B/P Mean 97 03/26 1016 O2 Delivery Room air 03/26 1016 Temp 36.6 03/26 1016 Pulse 115 03/26 1016 Resp 16 03/26 1016 Last Documented: Result Date Time Pulse Ox 99 03/26 1016 B/P 116/88 03/26 1016 B/P Mean 97 03/26 1016 O2 Delivery Room air 03/26 1016 Temp 36.6 03/26 1016 Pulse 115 03/26 1016 Resp 16 03/26 1016 All vital signs available at the time of this entry have been reviewed. Clinical Impression Clinical Impression Primary Impression: Subchorionic hematoma Secondary Impressions: Hyperemesis arising during , UTI (urinary tract infection) Disposition Decision Discharge )( Discharged to Home Yes )( Time 1243 )( Date 03/26/20 Discharge/Care Plan Counseled Regarding Diagnosis, Lab results, Prescriptions, Need for follow-up, When to return to ED (Auto) Prescriptions Current Visit Scripts ONDANSETRON ODT (ZOFRAN ODT) 4 MG PO Q6H PRN PRN NAUSEA/VOMITING ONDANSETRON ODT (ZOFRAN ODT) 4 MG PO Q6H PRN PRN NAUSEA/VOMITING #15 TABS NITROFURANTOIN/NITROFURAN MAC (MACROBID) 100 MG PO BID NITROFURANTOIN/NITROFURAN MAC (MACROBID) 100 MG PO BID #14 CAPS Until finished. Take with food. Patient Instructions Bleeding During Early , ED Hyperemesis Gravidarum, ED Urinary Tract Infections in Women Referrals Elmer Zapien MD (PCP/Family): First Available return if worse Discharge Note I have spoken with the patient and/or caregivers. I have explained the patient's condition, diagnoses and treatment plan based on the information available to me at this time. I have answered the patient's and/or caregiver's questions and addressed any concerns. The patient and/or caregivers have as good an understanding of the patient's diagnosis, condition and treatment plan as can be expected at this point. The vital signs have been stable. The patient's condition is stable and appropriate for discharge from the emergency department. The patient will pursue further outpatient evaluation with the primary care physician or other designated or consulting physician as outlined in the discharge instructions. The patient and/or caregivers are agreeable to this plan of care and follow-up instructions have been explained in detail. The patient and/or caregivers have received these instructions in written format and have expressed an understanding of the discharge instructions. The patient and/or caregivers are aware that any significant change in condition or worsening of symptoms should prompt an immediate return to this or the closest emergency department or a call to 911. at 1246 RPT #:[id number] END OF REPORT [facility] 2018-12-27 23:16:00 [facility] ([facility]) EMERGENCY PROVIDER REPORT REPORT#:[id number] REPORT STATUS: Signed DATE:12/27/18 TIME: 2315 PATIENT: SHALOM NAVARRO UNIT #: [id number] ROOM/BED: AGE: 18 SEX: F PCP PHYS: Elmer Zapien MD SERVICE AUTHOR: Casper Zee ALL edits or amendments must be made on the electronic/computer document * HPI- Female General Confirmed Patient Yes Initial Greet Date/Time 12/27/182312 Presentation Chief Complaint Vaginal discharge Hx Obtained From Patient )( Sudden in Onset? Yes Onset Occurred Days ago (4) Symptom Duration Since onset Progression since Onset Constant Associated with Reports: Abdominal pain, Nausea. Denies: Chills, Fever, Vomiting. Free Text HPI Notes Free Text HPI Notes 18 yo F w/PMH ovarian cyst p/w brownvaginal D/C for 4 days ang nausea for 2 weeks. Associated symptoms intermittent suprapubic abd cramping over the past 4 days. Pain is intermittent and cramping. She admits to being sexually active w/ 1 partner uses protection regularly during intercoarse. Pt mentions she usually urinates after intercoarse. She reports decreased appetite. She denies any similar sxs in the past, vomiting, F/C, dysuria, urinary frequency or urinary urgency. LNMP was 2 wks ago. Portions of this section were scribed by Simeon Kelly on 12/28/18 at 0147 Review of Systems ROS Statements All systems rev neg except as marked. Focused Review of Systems Constitutional Denies: Chills, Fever. GI Reports: Abdominal pain, Nausea. Denies: Vomiting. Female Reports: Vaginal discharge. Denies: Dysuria, Urinary frequency, Urinary urgency. Musculoskeletal Denies: Back pain. Portions of this section were scribed by Simeon Kelly on 12/27/18 at 2316 Past Medical History - Adult Stated Complaint LOW ABD CRAMPING, BROWN D/C, "PEEING BROWN" Allergies Coded Allergies: No Known Allergies (05/24/15) Home Medications Active Scripts ACETAMINOPHEN/CODEINE (TYLENOL WITH CODEINE #3 300/30 MG) 1 TAB PO Q4H PRN PRN ABDOMINAL CRAMPS/PAIN ACETAMINOPHEN/CODEINE (TYLENOL WITH CODEINE #3 300/30 MG) 1 TAB PO Q4H PRN PRN ABDOMINAL CRAMPS/PAIN #30 TAB Prov: 05/24/15 Reported Medications IBUPROFEN (ADVIL) 400 MG PO PRN PRN PAIN [NIQUILL] Additional Medical History Ovarian cysts Additional Surgical History Ovarian cyst removal Portions of this section were scribed by Simeon Kelly on 12/27/18 at 2316 Physical Exam Vital Signs Vital Signs First Documented: Result Date Time Pulse Ox 100 12/27 2324 B/P 123/65 12/27 2324 B/P Mean 84 12/27 2324 O2 Delivery Room air 12/27 2324 Temp 36.6 12/27 2324 Pulse 100 12/27 232 Resp 20 12/27 2324 Last Documented: Result Date Time Pulse Ox 100 12/27 2324 B/P 123/65 12/27 2324 B/P Mean 84 12/27 2324 O2 Delivery Room air 12/27 2324 Temp 36.6 12/27 2324 Pulse 100 12/27 2324 Resp 20 12/27 2324 Review of Vital Signs Reviewed Focused PE General/Const General/Const Awake, Alert, Well developed, Cooperative Resp/Chest Respiratory/Chest Breath sounds NL, No respiratory distress, No rales, No rhonchi, No wheezing Cardiovascular Cardiovascular Regular rhythm, Heart sounds NL, Pulses = bilaterally Heart Rate/Rhythm Tachycardia. Abdomen/GI Abdomen/GI Soft, No guarding, No rebound, No distention Tenderness/Guarding/Rebound Tender LLQ, Tender suprapubic. MS Back Back No CVA tenderness Skin Skin Warm, Dry, Intact Genitourinary General [employer] present (KYLE Asher) Female Genitourinary No discharge, No cervical motion tend, Os closed, No foreign body, No adnexal mass, No lesions or rash Text/Dict Notes Dark blood clots on posterior vault w/tiny amount oozing from os, BL adnexal tenderness (L>R), no external lesions, no vesicles, no lymphadenopathy. Additional PE MS Head Head Atraumatic, Normocephalic Eyes Eyes EOMI, Conjunctiva NL Ears/Nose/Throat Ears/Nose/Throat Airway patent, Mucous membranes moist MS Neck Neck Supple, Full range of motion MS Lower Extrem Lower Ext/Pelvis/MS No swelling, Non-tender, No edema Neurologic Neurologic Oriented X3, Speech NL, No motor deficits, Memory NL, Gait NL Psychiatric Psychiatric Affect NL, Mood NL Text/Dict Notes anxious appearing Portions of this section were scribed by Simeon Kelly on 12/28/18 at 0029 Interpretation Diagnostics Lab Results Interpretation Results Laboratory Tests 12/27/18 2342: [Embedded Image Not Available] 12/27/18 2340: [Embedded Image Not Available] Laboratory Tests: 12/27 12/27 2342 2340 Chemistry POC Sodium (134 - 147 MMOL/L) 140 POC Potassium (3.4 - 5.0 MMOL/L) 3.4 POC Chloride (100 - 108 MMOL/L) 101 Carbon Dioxide (21 - 33 mmol/L) 26.0 POC BUN (7 - 18 MG/DL) 10 POC Creatinine (0.6 - 1.3 MG/DL) 0.8 Estimated GFR (MDRD) (ML/MIN) 97 POC Glucose (70 - 110 MG/DL) 111 H POC Ioniz Calcium Guido (1.12 - 1.32 MG/DL) 1.22 Serum , Qual (NEGATIVE) SERUM NEGATIVE Hematology WBC (4.5 - 11.0 x10 3/uL) 12.38 H RBC (3.54 - 5.02 x10 6/uL) 4.55 Hgb (11.0 - 15.0 g/dL) 13.9 Hct (33.0 - 45.0 %) 42.2 MCV (81.0 - 99.0 fL) 92.7 MCH (27.0 - 33.0 pg) 30.5 MCHC (33.0 - 37.0 g/dL) 32.9 L RDW (11.5 - 14.5 %) 12.7 Plt Count (150 - 400 x10 3/uL) 358 MPV (7.0 - 9.0 fL) 10.8 H Neut % (Auto) (56.0 - 77.0 %) 59.5 Lymph % (Auto) (14.0 - 32.0 %) 32.1 H Dewitt % (Auto) (4.8 - 9.0 %) 6.8 Eos % (Auto) (0.3 - 3.7 %) 0.7 Baso % (Auto) (0.0 - 2.0 %) 0.4 Neut # (Auto) (2.0 - 7.6 x10 3/uL) 7.36 Lymph # (Auto) (1.0 - 3.8 x10 3/uL) 3.98 H Dewitt # (Auto) (0.1 - 0.8 x10 3/uL) 0.84 H Eos # (Auto) (0.0 - 0.2 x10 3/uL) 0.09 Baso # (Auto) (0.0 - 0.2 x10 3/uL) 0.05 Abs Immat Gran (auto) (0.00 - 0.03 x10 3/uL) 0.06 H Add Manual Diff NO Immature Gran % (0.0 - 2.0 %) 0.5 Nucleated RBC % (0 - 0 %) 0.0 Nucleated RBCs # (Man) (0.0 - 0.1 x10 3/uL) 0.00 Urines Urine Color (YEL/STRAW) YELLOW Urine Appearance (CLEAR) SL CLOUDY Urine pH (5.0 - 7.0) 6.0 Ur Specific [place] (1.005 - 1.030) 1.016 Urine Protein (NEGATIVE) NEGATIVE Urine Glucose (UA) (NEGATIVE) NEGATIVE Urine Ketones (NEGATIVE) NEGATIVE Urine Blood (NEGATIVE) 2+ H Urine Nitrite (NEGATIVE) NEGATIVE Urine Bilirubin (NEGATIVE) NEGATIVE Urine Urobilinogen (0.2 - 1.0 mg/dL) 0.2 Ur Leukocyte Esterase (NEGATIVE) NEGATIVE Urine RBC (0 - 3 RBC/HPF) 4-10 Urine WBC (0 - 3 WBC/HPF) 0-3 Ur Squamous Epith Cells (NONE SEEN /HPF) 6-10 H Urine Bacteria (NONE SEEN /HPF) TRACE Urine Mucus (NONE SEEN /LPF) TRACE Microbiology: Date/Time Procedure - Status Source Growth 12/27 2325 Wet Prep - CAN VAGINAL Cancelled: Cancelled via OE: Physician Decision Recent Impressions: ULTRASOUND - DUP AB/PEL/SC/LTD 12/27 2356 Report Impression - Status: SIGNED Entered: 12/28/2018125 IMPRESSION: 1. Bilateral adnexal cysts, right larger. Differential consideration would include paraovarian cyst versus exophytic ovarian cysts. 2. A 1.4 x 0.9 x 1.2 cm right adnexal complex cyst. 3. Trace fluid in the endometrial canal. Endometrial stripe thickness is 8.9 mm. 4. Trace free fluid in the cul-de-sac SL:MANDIE Impression By: Maurilio Rose M.D. ULTRASOUND - US TRANSVAGINAL NON OB 12/27 2356 Report Impression - Status: SIGNED Entered: 12/28/2018125 IMPRESSION: 1. Bilateral adnexal cysts, right larger. Differential consideration would include paraovarian cyst versus exophytic ovarian cysts. 2. A 1.4 x 0.9 x 1.2 cm right adnexal complex cyst. 3. Trace fluid in the endometrial canal. Endometrial stripe thickness is 8.9 mm. 4. Trace free fluid in the cul-de-sac SL:TAWNYA-Alida Impression By: Maurilio Rose M.D. ULTRASOUND - US PELVIS COMPLETE 12/27 2356 Report Impression - Status: SIGNED Entered: 12/28/2018125 IMPRESSION: 1. Bilateral adnexal cysts, right larger. Differential consideration would include paraovarian cyst versus exophytic ovarian cysts. 2. A 1.4 x 0.9 x 1.2 cm right adnexal complex cyst. 3. Trace fluid in the endometrial canal. Endometrial stripe thickness is 8.9 mm. 4. Trace free fluid in the cul-de-sac SL:[id number]-H Impression By: [email or web address] - Roger Rose M.D. Lab Imaging Statement Laboratory radiographic studies reviewed and considered in the medical decision-making. Point of Care Testing Pulse Oximetry Pulse Ox % 100 On: Room air Interpretation Interpreted by me, Pulse oximetry normal Time 5 Test Negative - serum HCG Free Text I D Notes Free Text I D Notes ULTRASOUND - DUP AB/PEL/SC/LTD 12/27 2356 IMPRESSION: 1. Bilateral adnexal cysts, right larger. Differential consideration would include paraovarian cyst versus exophytic ovarian cysts. 2. A 1.4 x 0.9 x 1.2 cm right adnexal complex cyst. 3. Trace fluid in the endometrial canal. Endometrial stripe thickness is 8.9 mm. 4. Trace free fluid in the cul-de-sac Reviewed by ED physician Interpreted by radiologist ULTRASOUND - US TRANSVAGINAL NON OB 12/27 2356 IMPRESSION: 1. Bilateral adnexal cysts, right larger. Differential consideration would include paraovarian cyst versus exophytic ovarian cysts. 2. A 1.4 x 0.9 x 1.2 cm right adnexal complex cyst. 3. Trace fluid in the endometrial canal. Endometrial stripe thickness is 8.9 mm. 4. Trace free fluid in the cul-de-sac Reviewed by ED physician Interpreted by radiologist ULTRASOUND - US PELVIS COMPLETE 12/27 2356 IMPRESSION: 1. Bilateral adnexal cysts, right larger. Differential consideration would include paraovarian cyst versus exophytic ovarian cysts. 2. A 1.4 x 0.9 x 1.2 cm right adnexal complex cyst. 3. Trace fluid in the endometrial canal. Endometrial stripe thickness is 8.9 mm. 4. Trace free fluid in the cul-de-sac Reviewed by ED physician Interpreted by radiologist Portions of this section were scribed by Simeon Klely on 12/28/18 at 0147 Re-Evaluation MDM Re-Evaluation/Progress Re-Evaluation/Progress Text/Dict Note Pt reports feeling much better. Informed pt she is not . She is resting comfortably. Will D/C home have her f/u with [facility] Time of Re-Eval 0029 ED Course Patient Course Improved (Pt informed of US results) Medication(s) Ordered Medication(s) Ordered: Central Nervous System Agents Sig/Prisca Start time Last Medication Dose Route Stop Time Status Admin Ketorolac 15 MG X1ED STA 12/27 2326 DC 12/27 Tromethamine IV 12/27 232 2349 Electrolytic, Caloric, And Miguel Angel Sig/Prisca Start time Last Medication Dose Route Stop Time Status Admin Sodium Chloride 0 ASDIR PRN 12/27 233 DCD IV 12/28 2225 Differential Diagnosis Differential Diagnosis Cervicitis, Discomfort of , Dysfunct uterine bleeding, Ectopic , Intrauterine , Menses, Miscarriage, Ovarian cyst, Ovarian torsion, Pelvic inflam disease, Vaginal bleeding Pert Findings/Considerations Diagnosis Appears Benign Portions of this section were scribed by Simeon Kelly on 12/28/18 at 0147 Patient Discharge Departure Vital Signs/Condition Vital Signs First Documented: Result Date Time Pulse Ox 100 12/27 2325 B/P 123/65 12/27 2325 B/P Mean 84 12/27 2325 O2 Delivery Room air 12/27 2325 Temp 36.6 12/27 2325 Pulse 100 12/27 2325 Resp 20 12/27 2325 Last Documented: Result Date Time Pulse Ox 100 12/27 2325 B/P 123/65 12/27 2325 B/P Mean 84 12/27 2325 O2 Delivery Room air 12/27 2325 Temp 36.6 12/27 2325 Pulse 100 12/27 2325 Resp 20 12/27 2325 All vital signs available at the time of this entry have been reviewed. Condition Stable Clinical Impression Clinical Impression Primary Impression: Ovarian cyst Secondary Impressions: Abnormal uterine bleeding Disposition Decision Discharge )( Discharged to Home Yes (Instructed to f/u with [facility]) )( Time 0147 )( Date 12/28/18 Discharge/Care Plan Counseled Regarding Diagnosis, Lab results, Imaging studies, Prescriptions, Need for follow-up, When to return to ED Prescriptions motrin, T3 Quality Measures Preg Test for Women w/Abd Pain Female age 14-50, Complaint of abdominal pn, Any preg test ordered Supervising Physician Note Scribe Statement Simeon Kelly, 12/27/18 2324, scribing for and in the presence of Dr. Zee. Signed By: Simeon Kelly, 12/27/18 3374 Provider Scribed Statement I personally performed the services described in this documentation and reviewed the documentation that was dictated to the scribe(s) in my presence, and it accurately records my words and actions. Casper Zee, 12/28/18 Portions of this section were scribed by Simeon Kelly on 12/28/18 at 0147 at 0355 [facility] #:[id number] END OF REPORT [facility] 2018-08-02 12:28:00 [facility] ([facility]) EMERGENCY PROVIDER REPORT REPORT#:[id number] REPORT STATUS: Signed DATE:08/02/18 TIME: 1228 PATIENT: SHALOM NAVARRO UNIT #: [id number] ROOM/BED: AGE: 18 SEX: F PCP PHYS: Elmer Zapien MD SERVICE AUTHOR: Desirae Nettles DO * ALL edits or amendments must be made on the electronic/computer document * Desirae Nettles 08/02/18 1228: HPI-Nausea/Vomit/Diarrhea General Confirmed Patient Yes Date/Time Seen by Provider 08/02/18 1249 Presentation Chief Complaint Nausea Hx Obtained From Patient Onset Occurred Weeks ago (2) Symptom Duration Since onset Progression since Onset Unchanged Location Diffuse Associated with Reports: Abdominal pain. Free Text HPI Notes Free Text HPI Notes 18 yo F w/PMHx of ovarian cysts presents to the ED w/ c/o sharp diffuse abd pain since 2 wks ago. The pt reports that the pain is intermittent but it started again this morning even worse that at onset. Of note, the pt's LNMP was 07/22. The pt has had assoc diarrhea, nausea, and slight dysuria. The pt denies vomiting and other assoc sxs. Portions of this section were scribed by Benjamin Marvin on 08/02/18 at 2017 Review of Systems ROS Statements All systems rev neg except as marked. Focused Review of Systems GI Reports: Abdominal pain, Diarrhea, Nausea. Denies: Vomiting. Additional Review of Systems Female Reports: Dysuria. Portions of this section were scribed by Benjamin Marvin on 08/02/18 at 1336 Past Medical History - Adult Stated Complaint ABDOMINAL PAIN-SENT FROM [facility] Allergies Coded Allergies: No Known Allergies (05/24/15) Home Medications Active Scripts ACETAMINOPHEN/CODEINE (TYLENOL WITH CODEINE #3 300/30 MG) 1 TAB PO Q4H PRN PRN ABDOMINAL CRAMPS/PAIN ACETAMINOPHEN/CODEINE (TYLENOL WITH CODEINE #3 300/30 MG) 1 TAB PO Q4H PRN PRN ABDOMINAL CRAMPS/PAIN #30 TAB Prov: 05/24/15 Reported Medications IBUPROFEN (ADVIL) 400 MG PO PRN PRN PAIN [NIQUILL] Pt reports no significant: Social history Additional Medical History Ovarian cysts Additional Surgical History Ovarian cyst removal Portions of this section were scribed by Benjamin Marvin on 08/02/18 at 1228 Physical Exam Vital Signs Vital Signs Review of Vital Signs Reviewed Focused PE General/Const General/Const Awake, Alert, Well developed, Cooperative Eyes Eyes EOMI, Conjunctiva NL Ears/Nose/Throat Ears/Nose/Throat Airway patent, Mucous membranes moist Resp/Chest Respiratory/Chest Breath sounds NL, No respiratory distress, No rales, No rhonchi, No wheezing Cardiovascular Cardiovascular Heart rate NL, Regular rhythm, Heart sounds NL Abdomen/GI Abdomen/GI Soft, No guarding, No rebound, No distention Text/Dict Notes Periumbilical and suprapubic tenderness Skin Skin Warm, Dry, Intact Neurologic Neurologic Oriented X3, Speech NL Additional PE MS Head Head Atraumatic, Normocephalic MS Lower Extrem Lower Ext/Pelvis/MS No swelling, Non-tender Psychiatric Psychiatric Affect NL, Mood NL Portions of this section were scribed by Benjamin Marvin on 08/02/18 at 2017 Interpretation Diagnostics Lab Results Interpretation Results Lab Statement Laboratory studies reviewed and considered in the medical decision-making. Point of Care Testing Pulse Oximetry Pulse Ox % 98 On: Room air Interpretation Interpreted by me, Pulse oximetry normal Time 1235 Portions of this section were scribed by Benjamin Marvin on 08/02/18 at 2017 Patient Discharge Departure Vital Signs/Condition Vital Signs Supervising Physician Note Scribe Statement Benjamin Marvin, 08/02/18 1228, scribing for and in the presence of Dr. Nettles. Signed By: Benjamin Marvin, 08/02/18 1228 Provider Scribed Statement I personally performed the services described in this documentation and reviewed the documentation that was dictated to the scribe(s) in my presence, and it accurately records my words and actions. Desirae Nettles, 08/03/18 Portions of this section were scribed by Benjamin Marvin on 08/02/18 at 2017 Wilda Jeffers 08/02/18 1408: Physical Exam Vital Signs Vital Signs First Documented: Result Date Time Pulse Ox 98 08/02 1235 B/P 118/70 08/02 1235 B/P Mean 86 08/02 1235 O2 Delivery Room air 08/02 123 Temp 36.9 08/02 1235 Pulse 79 08/02 1235 Resp 16 08/02 1235 Last Documented: Result Date Time Pulse Ox 96 08/02 1419 B/P 118/72 08/02 1419 B/P Mean 87 08/02 1419 Temp 36.7 08/02 1419 Pulse 79 08/02 1419 Resp 16 08/02 1419 O2 Delivery Room air 08/02 1235 Interpretation Diagnostics Lab Results Interpretation Results Laboratory Tests: 08/02 08/02 1302 1302 Urines Urine Color (YEL/STRAW) YELLOW Urine Appearance (CLEAR) CLEAR Urine pH (5.0 - 7.0) 6.0 Ur Specific [place] (1.005 - 1.030) 1.011 Urine Protein (NEGATIVE) NEGATIVE Urine Glucose (UA) (NEGATIVE) NEGATIVE Urine Ketones (NEGATIVE) NEGATIVE Urine Blood (NEGATIVE) NEGATIVE Urine Nitrite (NEGATIVE) NEGATIVE Urine Bilirubin (NEGATIVE) NEGATIVE Urine Urobilinogen (0.2 - 1.0 mg/dL) 0.2 Ur Leukocyte Esterase (NEGATIVE) 3+ H Urine RBC (0 - 3 RBC/HPF) 11-20 Urine WBC (0 - 3 WBC/HPF) >50 H Ur Squamous Epith Cells (NONE SEEN /HPF) 0-5 Urine Bacteria (NONE SEEN /HPF) 2+ H Urine Mucus (NONE SEEN /LPF) TRACE Urine HCG, Qual (NEGATIVE) NEGATIVE Microbiology: Date/Time Procedure - Status Source Growth 08/02 1324 Urine Culture - RECD URINE Re-Evaluation MDM Re-Evaluation/Progress #1 Time of Re-Eval 1408 Re-Eval Status Improved, reviewed labs and management, will d/c with keflex and pyridium Patient Discharge Departure Vital Signs/Condition Vital Signs First Documented: Result Date Time Pulse Ox 98 08/02 1235 B/P 118/70 08/02 1235 B/P Mean 86 08/02 1235 O2 Delivery Room air 08/02 1235 Temp 36.9 08/02 1235 Pulse 79 08/02 1235 Resp 16 08/02 1235 Last Documented: Result Date Time Pulse Ox 96 08/02 1419 B/P 118/72 / 1419 B/P Mean 87 08/02 1419 Temp 36.7 08/02 1419 Pulse 79 08/02 1419 Resp 16 08/02 1419 O2 Delivery Room air 08/02 1235 All vital signs available at the time of this entry have been reviewed. Clinical Impression Clinical Impression Primary Impression: UTI (urinary tract infection) Disposition Decision Discharge )( Discharged to Home Yes )( Time 1409 )( Date 08/02/18 Discharge/Care Plan Counseled Regarding Diagnosis, Lab results, Medication changes, Prescriptions, Need for follow-up, When to return to ED Prescriptions keflex, pyridium Prescriptions Reviewed Risks, Benefits, Alternative treatment at 1624 at 2002 RPT #:[id number] END OF REPORT [facility]
[2025-01-17] MEDS ORDERED: NA CHLORIDE 0.9% 1,000 ML ONE (16:48)
[2025-01-17] MEDS ORDERED: ONDANSETRON 4 MG/2 ML VIAL ONE (16:48)
[2025-01-17 16:55] LABS: Absolute Lymphocytes (CBC) 2.1 K/uL (0.7-4.9); Hematocrit 42.4 % (36.0-45.0); Hemoglobin 14.3 g/dL (12.0-15.0); MCH 30.2 pg (27.0-35.0); MCHC 33.7 g/dL (32.0-36.0); MCV 89.8 fL (80-100); MPV 8.7 fL (7.6-11.3); Nucleated RBC Absolute Count 0.0 (0-0); Nucleated Red Blood Cells % 0.1 % (0-0); RBC Red Blood Cell Count 4.72 M/uL (3.86-4.86); White Blood Count 9.30 thou/uL (4.3-10.9)
[2025-01-17 17:13] LABS: ALT/SGPT 16.0 U/L (13-56); AST/SGOT 11.0 U/L (15-37); Albumin 4.7 g/dL (3.4-5.0); Albumin/Globulin Ratio 1.3 (1.1-1.8); Alkaline Phosphatase 64.0 U/L (45-117); Anion Gap 8.2 mEq/L (5.0-15.0); BUN Blood Urea Nitrogen 11.0 mg/dL (7-18); Globulin 3.5 g/dL (2.3-3.5); Glucose Level 120.0 mg/dL (74-106); Lipase 29.0 U/L (13-75); Potassium 3.2 mEq/L (3.5-5.1)
[2025-01-17 17:18] LABS: Urine Culture Reflex Order NOT NEEDED; Urine Microscopic Reflex YN ORDER UMIC
[2025-01-17] MEDS ORDERED: DIPHENHYDRAMINE 50 MG/ML VIAL ONE (17:41)
[2025-01-17] MEDS ORDERED: METOCLOPRAMIDE 10 MG/2mL INJ ONE (17:41)
[2025-01-17] MEDS ORDERED: FAMOTIDINE 20 MG/2 ML VIAL IV ONE (17:41)
[2025-01-17] MEDS ORDERED: KETOROLAC 30 MG/ML INJ ONE (17:41)
[2025-01-17] MEDS ORDERED: NA CHLORIDE 0.9% 50 ML ONE (17:43)
--- NOTE | 2025-01-17 18:29 | EDPHYS ---
Physician Documentation [facility] Name: Ashley Estevez Age: 24 yrs Sex: Female : 2000 Arrival Date: 01/17/2025 Time: 16:32 Bed 11 Private MD: ED Physician Jose Lehman HPI: 01/17 16:44 This 24 yrs old Female presents to ER via Ambulatory with complaints of Nausea.sb4 16:44 Patient reports chronic nausea but states that it has been worse than usual today. sb4 States that she feels very poorly. Is also experiencing an occipital headache. No vomiting or diarrhea. Has not followed up with GI regarding this, does not take any medicines for this issue. RIBBER: 16:40 LMP N/A - control method, Not iw Historical: - Allergies: 16:39 No Known Allergies; iw - PMHx: 16:39 Ovarian cysts; pneumonia/pleurisy; iw - PSHx: 16:39 ovarian cyst drainage; iw - Immunization history:: Adult Immunizations unknown. - Infectious Disease History:: Denies. - Social history:: Smoking status: Patient denies any tobacco usage or history of. Patient uses street drugs, marijuana. ROS: 16:44 Constitutional: Negative for fever, chills, and weight loss, sb4 16:44 Abdomen/GI: Positive for nausea, 16:44 All other systems are negative, Exam: 16:44 Head/Face: Normocephalic, atraumatic. Eyes: Extra-ocular motions intact. Periorbital sb4 areas with no swelling, redness, or edema. ENT: Mucous membranes moist. Cardiovascular: Regular rate and rhythm with a normal S1 and S2. Respiratory: No increased work of breathing, no retractions or nasal flaring. Abdomen/GI: Soft, non-tender, no distension. Skin: Warm, dry with normal turgor. Normal color with no rashes, no lesions, and no evidence of cellulitis. 16:44 Constitutional: The patient appears alert, awake, anxious, Tearful Vital Signs: 16:37 BP 123 / 93; Pulse 88; Resp 18; Pulse Ox 98% ; Weight 38.56 kg; Height 5 ft. 0 in. ; iw 18:40 BP 104 / 73; Pulse 81; Resp 18; Pulse Ox 100% on R/A; af3 16:37 Body Mass Index 16.60 (38.56 kg, 152.4 cm) iw MDM: 16:35 Medical Screening Exam initiated sb4 16:54 Differential diagnosis: gastritis, pancreatitis, gastroenteritis, GERD, . sb4 18:31 Data reviewed: vital signs, nurses notes, lab test result(s), and as a result, I will sb4 discharge patient. Counseling: I had a detailed discussion with the patient and/or guardian regarding the historical points, exam findings, and any diagnostic results supporting the discharge/admit diagnosis, lab results, the need for outpatient follow up, a physician asst, to return to the emergency department if symptoms worsen or persist or if there are any questions or concerns that arise at home. 01/17 16:40 Order name: CBC with Diff; Complete Time: 17:08 sb4 01/17 16:40 Order name: CMP; Complete Time: 17:14 sb4 01/17 16:40 Order name: Lipase; Complete Time: 17:14 sb4 01/17 16:40 Order name: Test, Urine; Complete Time: 17:20 sb4 01/17 16:40 Order name: UA Rfx Nasir Cult if indicated; Complete Time: 17:20 sb4 01/17 16:40 Order name: IV Saline Lock; Complete Time: 16:53 sb4 01/17 16:40 Order name: Labs collected and sent; Complete Time: 16:53 sb4 01/17 18:13 Order name: PO challenge; Complete Time: 18:18 sb4 Administered Medications: 16:53 Drug: Ondansetron IVP 4 mg IVP once; over 2 minutes Route: IVP; Site: left antecubital; iw 18:40 Follow up: Response: No adverse reaction af3 16:53 Drug: NS 0.9% IV 1000 ml IV at 1 bolus Per protocol; to be given as a bolus over 60 iw minutes Route: IV; Rate: 1 bolus; Site: left antecubital; 18:39 Follow up: Response: No adverse reaction; IV Status: Completed infusion; IV Intake: af3 1000ml 18:06 Drug: Famotidine IVP 10 mg IVP once; dilute with 10 mL 0.9% NaCl; give over 2 minutes af3 Route: IVP; Site: left antecubital; 18:39 Follow up: Response: No adverse reaction af3 18:07 Drug: Potassium Chloride PO 40 mEq PO once Route: PO; af3 18:39 Follow up: Response: No adverse reaction af3 18:07 Drug: Ketorolac IVP 15 mg IVP once Route: IVP; Site: left antecubital; af3 18:39 Follow up: Response: No adverse reaction af3 18:07 Drug: metoCLOPramide IVP 10 mg IVP once; over 1 to 2 minutes Route: IVP; Site: left af3 antecubital; 18:39 Follow up: Response: No adverse reaction af3 18:07 Drug: diphenhydrAMINE IVP 25 mg IVP once Route: IVP; Site: left antecubital; af3 18:39 Follow up: Response: No adverse reaction af3 Disposition: 16:46 I was immediately available on-site in the Emergency Department for consultation in the ms3 care of the patient. Disposition Summary: 01/17/25 18:29 Discharge Ordered Notes: Location: Home sb4 Problem: an ongoing problem sb4 Symptoms: have improved sb4 Condition: Stable sb4 Diagnosis - Nausea sb4 - Headache sb4 Followup: sb4 - With: Mc Cortés MD - When: As needed - Reason: Recheck today's complaints, Re-evaluation by your physician Discharge Instructions: - Discharge Summary Sheet sb4 - General Headache Without Cause sb4 - Nausea, Adult sb4 Forms: - Patient Portal Instructions sb4 - Leadership Thank You Letter sb4 Prescriptions: - Reglan 10 mg Oral tablet - take 1 tablet ORAL route every 6 hours .; 20 tablet; Refills: 0, Product sb4 Selection Permitted Signatures: Dispatcher [employer] Lexis Saldaña, RN Jose Hunter DO DO ms3 Saskia Taveras PA-C PA-C sb4 Christel Krishnan RN RN af3 Corrections: (The following items were deleted from the chart) 16:40 16:40 CBC+H.LAB.BRZ ordered. EDMS EDMS 16:40 16:40 COMPREHENSIVE METABOLIC PANEL+C.LAB.BRZ ordered. EDMS EDMS 16:40 16:40 LIPASE+C.LAB.BRZ ordered. EDMS EDMS 16:40 16:40 Test, Urine+UC.LAB.BRZ ordered. EDMS EDMS 16:40 16:40 UA Rfx Nasir Cult if indicated+U.LAB.BRZ ordered. EDMS EDMS
--- NOTE | 2025-01-17 18:29 | ER ---
Nurse's Notes [facility] Name: Ashley Estevez Age: 24 yrs Sex: Female : 2000 Arrival Date: 01/17/2025 Time: 16:32 Bed 11 Private MD: Diagnosis: Nausea;Headache Presentation: 01/17 16:37 Chief complaint: Patient states: has been very nauseous, has previous episodes in the iw past , felt worse today. Coronavirus screen: At this time, the client does not indicate any symptoms associated with coronavirus-19. Ebola Screen: No symptoms or risks identified at this time. Initial Sepsis Screen: Does the patient meet any 2 criteria? No. Patient's initial sepsis screen is negative. Does the patient have a suspected source of infection? No. Patient's initial sepsis screen is negative. Risk Assessment: Do you want to hurt yourself or someone else? Patient reports no desire to harm self or others. Onset of symptoms was January 17, 2025. 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 - Infectious Disease History:: Denies. - Social history:: Smoking status: Patient denies any tobacco usage or history of. Patient uses street drugs, marijuana. Screenin:54 [facility] ED Fall Risk Assessment (Adult) History of falling in the last 3 months, iw including since admission No falls in past 3 months (0 pts) Confusion or Disorientation No (0 pts) Intoxicated or Sedated No (0 pts) Impaired Gait No (0 pts) Mobility Assist Device Used No (0 pt) Altered Elimination No (0 pt) Score/Fall Risk Level 0 - 2 = Low Risk Oriented to surroundings, Maintained a safe environment. Abuse screen: Denies threats or abuse. Nutritional screening: No deficits noted. Tuberculosis screening: No symptoms or risk factors identified. Assessment: 18:27 General: Appears in no apparent distress. uncomfortable, well groomed, well developed, af3 Behavior is calm, cooperative, appropriate for age. Pain: Denies pain. Neuro: Level of Consciousness is awake, alert, obeys commands, Oriented to person, place, time, situation, Appropriate for age. Cardiovascular: Patient's skin is warm and dry. Respiratory: Airway is patent Respiratory effort is even, unlabored, Respiratory pattern is regular, symmetrical. GI: Reports nausea. Vital Signs: 16:37 BP 123 / 93; Pulse 88; Resp 18; Pulse Ox 98% ; Weight 38.56 kg; Height 5 ft. 0 in. ; iw 18:40 BP 104 / 73; Pulse 81; Resp 18; Pulse Ox 100% on R/A; af3 16:37 Body Mass Index 16.60 (38.56 kg, 152.4 cm) iw ED Course: 16:34 Patient arrived in ED. mr 16:34 Saskia Taveras PA-C is PHCP. sb4 16:34 Jose Lehman DO is Attending Physician. sb4 16:38 Triage completed. iw 16:39 Arm band placed on. iw 16:39 Client placed on continuous cardiac and pulse oximetry monitoring. NIBP monitoring af3 applied. cafeteria monitor on. Pulse ox on. NIBP on. 16:45 Initial lab(s) drawn, by me, sent to lab. Inserted saline lock: 22 gauge in left iw antecubital area, using aseptic technique. Blood collected. Flushed with 10 mL NS. 16:53 Lexis Guthrie, RN is Primary Nurse. iw 17:11 UA Rfx Nasir Cult if indicated Sent. iw 17:11 Test, Urine Sent. iw 18:27 Patient has correct armband on for positive identification. Bed in low position. Call af3 light in reach. Provided Education on: meds, call light use . 18:27 No provider procedures requiring assistance completed. af3 18:29 Mc Cortés MD is Referral Physician. sb4 18:41 IV discontinued, intact, bleeding controlled, No redness/swelling at site. Pressure af3 dressing applied. Administered Medications: 16:53 Drug: Ondansetron IVP 4 mg IVP once; over 2 minutes Route: IVP; Site: left antecubital; iw 18:40 Follow up: Response: No adverse reaction af3 16:53 Drug: NS 0.9% IV 1000 ml IV at 1 bolus Per protocol; to be given as a bolus over 60 iw minutes Route: IV; Rate: 1 bolus; Site: left antecubital; 18:39 Follow up: Response: No adverse reaction; IV Status: Completed infusion; IV Intake: af3 1000ml 18:06 Drug: Famotidine IVP 10 mg IVP once; dilute with 10 mL 0.9% NaCl; give over 2 minutes af3 Route: IVP; Site: left antecubital; 18:39 Follow up: Response: No adverse reaction af3 18:07 Drug: Potassium Chloride PO 40 mEq PO once Route: PO; af3 18:39 Follow up: Response: No adverse reaction af3 18:07 Drug: Ketorolac IVP 15 mg IVP once Route: IVP; Site: left antecubital; af3 18:39 Follow up: Response: No adverse reaction af3 18:07 Drug: metoCLOPramide IVP 10 mg IVP once; over 1 to 2 minutes Route: IVP; Site: left af3 antecubital; 18:39 Follow up: Response: No adverse reaction af3 18:07 Drug: diphenhydrAMINE IVP 25 mg IVP once Route: IVP; Site: left antecubital; af3 18:39 Follow up: Response: No adverse reaction af3 Medication: 16:54 VIS not applicable for this client. iw Intake: 18:39 IV: 1000ml; Total: 1000ml. af3 Outcome: 18:29 Discharge ordered by MD. sb4 18:40 Discharged to home ambulatory, af3 18:40 Condition: stable 18:40 Discharge instructions given to patient, Instructed on discharge instructions, follow up and referral plans. medication usage, Demonstrated understanding of instructions, follow-up care, medications, Prescriptions given X 1, 18:41 Patient left the ED. af3 Signatures: Charlene Du, Reg Reg mr Lexis Guthrie RN RN iw Saskia Taveras PA-C PAEsperanza sb4 Christel Krishnan RN RN af3 Corrections: (The following items were deleted from the chart) 16:40 16:37 BP 123 / 93; Pulse 88bpm; Resp 18bpm; Pulse Ox 98%; iw iw 18:07 18:06 Famotidine IVP 10 mg IVP in right antecubital af3 af3 18:07 18:07 diphenhydrAMINE IVP 25 mg IVP in right antecubital af3 af3
[2025-01-17 19:01] VITALS: BP 104/73; O2SAT 100
== END 2025-01-17 18:41 | disposition home or self-care (01) ==
LOC: ER 16:32
DX: R11.0 Nausea (principal); R51.9 Headache, unspecified; F12.90 Cannabis use, unspecified, uncomplicated
CPT/HCPCS: 96361; 85025; 81001; 36415; 81025; 83690; 80053; 96375; 96374; 99285; J2765; J1200; J2405; J7030